=== PATIENT | male | born 1935 | race Caucasian/White ===

== ENCOUNTER 2017-04-15 17:43 | Inpatient (IN) | payer OTHER ==
[~2017-04-15] VITALS: Ht 182.9 cm; Wt 62.6 kg
[~2017-04-15 17:43] MED LIST: ACETAMINOPHEN-1 EAC1 PO; ALLOPURINOL 30300 M1 PO; AMOX TR-K CLV1 EAC4 PO; ASPIRIN EC81 M1 PO; AVALIDE 300-121 EACH PO; CARISOPRODOL 3350 M1 PO; CLEOCIN HCL150 MG PO; COUMADIN 3 MG TA3 M1 PO; DOCUSATE SODIU100 MG PO; FLORANEX TABLE1 EACH PO; HYDROCODON-ACE1 EAC1 PO; LIPITOR20 MG PO; NEURONTIN 300M300 M2 PO; NORCO 7.5-3251 EACH PO; STOOL SOFT-STI1 EACH PO; TOPROL XL50 MG PO
[2017-04-15 17:51] VITALS: BP 108/60
[2017-04-15] MEDS ORDERED: ELIQUIS2.5 MG PO (17:58)
[2017-04-15 18:35] LABS: INFLUENZA A ANTIGEN None Detected (None Detect)
[2017-04-15 18:39] LABS: HEMATOCRIT 42.9 % (42.0-52.0); HEMOGLOBIN 14.3 gm/dL (14.0-18.0); MCH 28.6 pg (26.0-34.0); MCHC 33.3 g/dL (28.0-37.0); MCV 85.7 fL (80.0-100.0); MPV 9.5 fl. (7.2-11.1); NUCLEATED RBCS 0 /100WBC; PLATELET COUNT* 292 thou/uL (150-400); RBC 5.01 mil/uL (4.50-6.00); RDW-CV 15.9 % (10.5-14.5)
[2017-04-15 18:42] LABS: WBC 42.4 thou/uL (4.0-11.0)
[2017-04-15 18:55] LABS: ALBUMIN 3.3 g/dL (3.4-5.0); ALKALINE PHOSPHATASE 124 U/L (46-116); ANION GAP 8 mmol/L (7-16); BUN 42 mg/dL (7-18); CALCIUM 8.9 mg/dL (8.5-10.1); CHLORIDE 100 mmol/L (98-107); CO2 28 mmol/L (21-32); CREATININE 1.9 mg/dL (0.6-1.3); GLUCOSE 140 mg/dL (70-99); NT-PRO BRAIN NAT PEPTIDE 1022 pg/mL (<300); POTASSIUM 3.7 mmol/L (3.5-5.1); SGOT 19 U/L (15-37); SGPT 25 U/L (30-65); SODIUM 136 mmol/L (136-145); TOTAL BILIRUBIN 1.1 mg/dL (<0.1-1.0); TOTAL PROTEIN 7.4 g/dL (6.4-8.2); TROPONIN-I LEVEL <0.06 ng/mL (<0.06)
[2017-04-15 19:06] LABS: ABSOLUTE LYMPHOCYTES 1.3 thou/uL (0.8-5.3); ABSOLUTE NEUTROPHILS 41.1 thou/uL (1.6-8.1); PLATELET ESTIMATE ADEQUATE
[2017-04-15 20:45] VITALS: BP 117/44
[2017-04-15 21:36] VITALS: BP 115/46
[2017-04-15] MEDS ORDERED: MELATONIN5 M1 PO (22:16)
[2017-04-16] VITALS: BP 110/50
[2017-04-16 04:00] VITALS: BP 110/44
[2017-04-16 08:00] VITALS: BP 113/56
[2017-04-16 11:55] LABS: ABSOLUTE LYMPHOCYTES 0.3 thou/uL (0.8-5.3); ABSOLUTE MONOCYTES 0.1 thou/uL (0.0-1.2); ABSOLUTE NEUTROPHILS 34.6 thou/uL (1.6-8.1); BASOPHILS 0.1 %; HEMATOCRIT 38.2 % (42.0-52.0); HEMOGLOBIN 12.5 gm/dL (14.0-18.0); MCH 28.4 pg (26.0-34.0); MCHC 32.8 g/dL (28.0-37.0); MCV 86.5 fL (80.0-100.0); MONOCYTES 0.2 %; MPV 9.5 fl. (7.2-11.1); NUCLEATED RBCS 0 /100WBC; PLATELET COUNT* 255 thou/uL (150-400); POLYS 98.7 %; RBC 4.42 mil/uL (4.50-6.00); RDW-CV 15.6 % (10.5-14.5)
[2017-04-16 12:00] VITALS: BP 116/72
[2017-04-16 12:04] LABS: ALBUMIN 2.4 g/dL (3.4-5.0); CALCIUM 8.1 mg/dL (8.5-10.1); CREATININE 1.6 mg/dL (0.6-1.3); POTASSIUM 3.7 mmol/L (3.5-5.1); TOTAL BILIRUBIN 0.4 mg/dL (<0.1-1.0)
--- NOTE | 2017-04-16 12:55 | EKG ---
[place] [address] ELECTROCARDIOGRAM REPORT Name: GERMAN NAIK Room: [address] ADM IN .R.#: [id number] Admission: 04/15/17 Attend Phys: Thuan Montaño Discharge: Date of : 35 Report #: [id number] THIS REPORT FOR: //name// [facility] ED Test Date: 2017-04-15 Test Time: 18:14:10 Pat Name: GERMAN NAIK Department: Room: [facility] Gender: Principal Mechanical Engineer: Miladis SOLER : 1935 Requested By: Mildred Zhong Order Number: [id number] MD: Jones Deng Measurements Intervals [place] Rate: 109 P: GA: QRS: 101 QRSD: 135 T: -19 QT: 355 QTc: 479 Interpretive Statements Atrial fibrillation 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
--- NOTE | 2017-04-16 13:02 | EKG ---
[place] [address] ELECTROCARDIOGRAM REPORT Name: GERMAN NAIK Room: [address] ADM IN M.R.#: [id number] Admission: 04/15/17 Attend Phys: Thuan Montaño Discharge: Date of : 35 Report #: [id number] THIS REPORT FOR: //name// [facility] Test Date: 2017-04-16 Test Time: 08:36:16 Pat Name: GERMAN NAIK Department: Room: [address] Gender: M Zinc Miner: : 1935 Requested By: Leo Pop Order Number: [id number] MD: Jones Deng Measurements Intervals [place] Rate: 63 P: 78 MS: 137 QRS: 95 QRSD: 147 T: 35 QT: 448 QTc: 459 Interpretive Statements Sinus rhythm RBBB and LPFB Electronically Signed On 04-16-2017 13:02:52 THIRD RIGGER by Jnoes Deng [email or web address] <ELECTRONICALLY SIGNED> By: Jones Deng MD, [facility] 04/16/17 1302 0836 0836 Jones Deng MD, FACC /EPI
[2017-04-16 16:00] VITALS: BP 110/43
[2017-04-16 20:00] VITALS: BP 135/51
[2017-04-17] VITALS: BP 119/55
[2017-04-17 04:00] VITALS: BP 121/57
[2017-04-17 05:38] LABS: BASOPHILS 0.1 %; HEMATOCRIT 35.9 % (42.0-52.0); HEMOGLOBIN 11.8 gm/dL (14.0-18.0); LYMPHOCYTES 0.9 %; MCH 28.4 pg (26.0-34.0); MCHC 32.8 g/dL (28.0-37.0); MCV 86.4 fL (80.0-100.0); MONOCYTES 0.1 %; MPV 9.7 fl. (7.2-11.1); NUCLEATED RBCS 0 /100WBC; PLATELET COUNT* 292 thou/uL (150-400); POLYS 98.9 %; RBC 4.16 mil/uL (4.50-6.00)
[2017-04-17 06:07] LABS: ABSOLUTE LYMPHOCYTES 0.4 thou/uL (0.8-5.3); ABSOLUTE NEUTROPHILS 49.2 thou/uL (1.6-8.1)
[2017-04-17 06:09] LABS: WBC 49.7 thou/uL (4.0-11.0)
[2017-04-17 07:14] LABS: ALBUMIN 2.4 g/dL (3.4-5.0); CALCIUM 7.8 mg/dL (8.5-10.1); CREATININE 1.4 mg/dL (0.6-1.3); POTASSIUM 3.6 mmol/L (3.5-5.1); TOTAL BILIRUBIN 0.3 mg/dL (<0.1-1.0); TOTAL PROTEIN 5.4 g/dL (6.4-8.2)
--- NOTE | 2017-04-17 07:36 | CON ---
[facility] [address] [place] [address] CONSULTATION Name: GERMAN NAIK Room: [address] [facility] IN M.R.#: [id number] Admission: 04/15/17 Attend Phys: Thuan Montaño Discharge: Date of : 35 Report #: [id number] THIS REPORT FOR: //name// CC: HUBERT Deng MD [facility] Roger Slaughter INDICATION: Atrial fibrillation. HISTORY OF PRESENT ILLNESS: The patient is an 82-year-old gentleman with history of coronary artery disease, peripheral vascular disease, coronary artery bypass grafting, paroxysmal atrial fibrillation and chronic anticoagulation. The patient was admitted with the flu. In this setting, he had paroxysm of atrial fibrillation. He is now in sinus rhythm. He has no symptoms with his atrial fibrillation. He is chronically anticoagulated. He is having no bleeding problems. With rest and fluids, he states that he is feeling better. At the time of my interview, he is without cardiac complaint. PAST MEDICAL HISTORY: 1. Coronary artery disease. 2. Peripheral vascular disease. 3. Hyperlipidemia. 4. Gout. 5. Hypertension. 6. Remote history of myocardial infarction. 7. Cardiac nuclear stress test 04/02/2015, EF 66%, nonischemic. Echo 04/02/2015, EF 55-60%. PAST SURGICAL HISTORY: 1. Abdominal aortic aneurysm repair in 2006. 2. Cardiac stenting 1996. 3. Three vessel coronary artery bypass graft in 2005. 4. Right carotid endarterectomy in 2004. 5. Benign kidney mass. 6. Inguinal hernia repair. 7. Bladder surgery. 8. Colon Fistula. 9. L3-L4 laminectomy. 10. Aortogram and atherectomy of the right SFA and popliteal. FAMILY HISTORY: Noncontributory. SOCIAL HISTORY: The patient smokes 2 packs of cigarettes daily. Drinks alcohol moderately. He is . His is with him. ALLERGIES: [place] [address] CONSULTATION Name: GERMAN NAIK Room: [address] IN [facility].#: [id number] Admission: 04/15/17 Attend Phys: Thuan Montaño Discharge: Date of : 35 Report #: [id number] CURRENT MEDICATIONS: Floranex 1 tablet daily, allopurinol 300 mg daily, Eliquis 2.5 mg b.i.d., aspirin 81 mg daily, Lipitor 20 mg daily, carisoprodol 350 mg q.6 hours, clindamycin 600 mg q.6 hours, Colace 100 mg daily, gabapentin 300 mg t.i.d., hydrocodone/acetaminophen 7.5/325 one tablet q.6 hours p.r.n., Avalide 300/12.5 daily, melatonin 10 mg at bedtime as needed, Toprol-XL 50 mg daily, stool softener daily. REVIEW OF SYSTEMS: A 14-point review of systems is positive for cough productive of clear to yellow sputum, history of previous DVT remotely. He wears glasses without acute visual change. He wears dentures. He has peripheral neuropathy. Otherwise, 14-point review of systems unremarkable. PHYSICAL EXAMINATION: VITAL SIGNS: Blood pressure 113/56, pulse 57 and regular. GENERAL: This is a pleasant gentleman who is in no distress. Mood and affect appropriate. HEENT: The patient is wearing glasses. Extraocular muscles intact. Mucous membranes are moist. NECK: Shows no jugular venous distention. There are no carotid bruits. CHEST: Reveals clear lung john. I do not appreciate wheezes, rales or rhonchi. CARDIOVASCULAR: Reveals a regular rhythm without gallop or murmur. ABDOMEN: Reveals normal bowel sounds. The abdomen is soft and nontender. EXTREMITIES: Shows no edema. Peripheral pulses diminished. LABORATORY DATA: A 12-lead EKG, presently shows a sinus rhythm with right bundle branch block. On admission showed atrial fibrillation with right bundle branch block. Troponin less than 0.06. IMPRESSION AND RECOMMENDATIONS: 1. Coronary artery disease, presently stable. He is not having any symptoms to suggest angina. Continue daily aspirin. 2. Paroxysmal atrial fibrillation. The patient mostly in sinus rhythm. He was adequately anticoagulated, no adjustments at this time. 3. Peripheral vascular disease, presently stable. He is having no resting pain or nonhealing ulcers. 4. Hyperlipidemia. He has been at goal on 20 mg of atorvastatin and continues outlined above. 5. Hypertension, adequately controlled on current medications. 6. Influenza [place] [address] CONSULTATION Name: GERMAN NAIK Room: [address] IN [facility]#: [id number] Admission: 04/15/17 Attend Phys: Thuan Montaño Discharge: Date of : 35 Report #: [id number] At this point in time, the patient appears stable from a cardiac standpoint. We will follow as needed. <ELECTRONICALLY SIGNED> By: Leo Pop MD, FACC 04/17/17 0736 1342 [facility]01[facility] Anna Pop MD, FACC /nt
--- NOTE | 2017-04-17 07:55 | CON ---
[address] [address] CONSULTATION Name: GERMAN NAIK Room: [address] IN M.R.#: [id number] Admission: 04/15/17 Attend Phys: Thuan Montaño Discharge: Date of : 35 Report #: [id number] THIS REPORT FOR: //name// CC: Alexander Slaughter DATE OF SERVICE: 04/16/2017 ATTENDING PHYSICIAN: Roger Slaughter DO. REASON FOR EVALUATION: Influenza with leukemoid reaction. HISTORY OF PRESENT ILLNESS: Chart reviewed, patient examined. This is an 82-year-old with fairly extensive medical history, a lot of related vasculopathy, who had fairly abrupt onset of illness dating back to 04/13/2017, associated cough. Denies significant fevers. Generalized myalgias and arthralgias, some decreased appetite, has not had gastrointestinal related complaints, is found to be positive for influenza antigen B. Chest x-ray did not show any acute processes; however, lactic acid was in normal range. CBC showed markedly elevated white count to 35,000. On questioning, denies any particular exposure history, although he has had significant fairly weight loss over the course of last couple of years, attributes that to decreased p.o. intake, early satiety it sounds like. He is empirically started on antimicrobials including levofloxacin and Tamiflu. ALLERGIES: AUGMENTIN. CURRENT MEDICATIONS: Include atorvastatin, methylprednisolone, levofloxacin, losartan, hydrochlorothiazide, aspirin, allopurinol, Lactobacillus, metoprolol, gabapentin, carisoprodol, apixaban, and Tamiflu. PAST MEDICAL HISTORY: He has known coronary artery disease with previous acute myocardial infarction, has stenting, aortocoronary bypass grafting, has history of abdominal aortic aneurysm repair, hypertension, reflux, gout. He has had a fem-pop bypass. SOCIAL HISTORY: Smokes 2 packs per day. FAMILY HISTORY: Noncontributory. REVIEW OF SYSTEMS: As above. PHYSICAL EXAMINATION: GENERAL: He is alert, cooperative, in ugov-sw-sxoxahpc distress, frequent cough. VITAL SIGNS: Temperature 98.1, pulse 75, respirations 18, [place] [address] CONSULTATION Name: NAIKGERMAN Miladis Room: [address]#: [id number] Admission: 04/15/17 Attend Phys: Thuan Montaño Discharge: Date of : 35 Report #: [id number] 116/72. SKIN: Warm, dry. HEENT: Unremarkable. NECK: Supple. LUNGS: Few scattered coarse breath sounds. HEART: Regular. No appreciated murmur. ABDOMEN: Soft. There is no apparent organomegaly. There are no overt peritoneal signs. GENITOURINARY AND RECTAL: Deferred. LABORATORY DATA: Chest x-ray showed no acute process on 2 occasions. Electrolytes: Sodium 139, potassium 3.9, chloride 105, bicarbonate is 29, anion gap of 5. BUN and creatinine 40 and 1.6. Glucose of 218. LFTs are unremarkable. Albumin of 2.4, total protein 6.0. Estimated GFR of 42. CBC: White count 35.0, H and H 12.5 and 38.2, platelets of 255. He has had an overwhelming neutrophilia of 34,600 lymphocytopenia. Blood cultures sterile thus far. Lactic acid 0.9. ASSESSMENT: Influenza B. He has been ill for about 72 hours. There is no evidence of focal pyogenic infection at this point. Certainly at risk including pneumonitis, not overtly toxic. There is a question he has got some chronic occult process going on. I think we will image his abdomen and pelvis. I will go ahead and check a sed rate. Differential is otherwise fairly unremarkable at this point. We will continue empiric antimicrobial therapy including the antibacterial for the moment. If he has diarrhea, consider Clostridium difficile related colitis. <ELECTRONICALLY SIGNED> By: Micah Colindres MD 04/17/17 0755 1450 0236Joaldair Colindres MD /nt
[2017-04-17 08:00] VITALS: BP 128/56
[2017-04-17 08:16] LABS: URINE BILIRUBIN NEGATIVE (Negative); URINE BLOOD NEGATIVE (Negative); URINE CLARITY CLEAR; URINE COLOR YELLOW; URINE GLUCOSE-RANDOM NEGATIVE (Negative); URINE KETONES NEGATIVE (Negative); URINE LEUKOCYTES-REFLEX NEGATIVE (Negative); URINE NITRITE-REFLEX NEGATIVE (Negative); URINE PROTEIN NEGATIVE (Negative); URINE UROBILINOGEN 0.2 E.U./dl (0.2-1.0)
[2017-04-17 12:09] VITALS: BP 131/53
[2017-04-17 13:16] LABS: INR 1.4; PROTIME 13.8 Seconds (9.20-11.50)
[2017-04-17] MEDS ORDERED: TESSALON PERLE100 MG PO (15:51)
[2017-04-17] MEDS ORDERED: TAMIFLU30 MG PO (15:51)
[2017-04-17] MEDS ORDERED: LEVAQUIN 750 M750 MG PO (16:03)
[2017-04-17] MEDS ORDERED: PREDNISONE 10 M10 MG PO (16:03)
[2017-04-17 16:17] VITALS: BP 131/53
[2017-04-17 16:23] VITALS: BP 135/57
--- NOTE | 2017-04-17 17:50 | S ---
[place] [address] SURGICAL PATH RPT PROCEDURE Name: GERMAN NAIK Miladis Room: [address] IN M.R.#: [id number] Admission: 04/15/17 Date of : 35 Discharge: 04/17/17 Report #: [id number] Path Case #: [id number] PATHOLOGY REPORT COLLECTION DATE: 04/17/2017 RECEIVED DATE: 04/17/2017 SUBMITTING PHYS: Dr. Yessenia Echeverria OTHER PHYS: Dr. Roger Frazier SPECIMEN(S) RECEIVED: A.Peripheral smear * * * * * * * * * * * * FINAL DIAGNOSIS: Peripheral blood smear: - Mild normocytic anemia and marked leukocytosis / neutrophilia with mild left shift (see comment). (CLW:elena; 04/17/2017) COMMENT: Overall, the peripheral blood has mild normocytic anemia and marked leukocytosis / neutrophilia with a mild left shift. The platelet count is within the normal reference range. The etiology of the findings is unclear based entirely on slide review. It may be a reactive condition. If persistent and/or unexplained, evaluation for BCR/ABL may provide additional information, if clinically indicated. Potential causes of normocytic anemia include anemia of chronic disease, treated and/or compensated vitamin and mineral deficiencies, blood loss, dilutional and primary bone marrow disorders. Correlation with clinical history and additional laboratory data is recommended. The case was discussed with Dr. Echeverria on 04/17/2017 at approximately 2:30 PM. (CLW:elena; 04/17/2017) PATHOLOGIST: Dora Garcia M.D. REPORT ELECTRONICALLY SIGNED BY: Dora Garcia M.D. DATE/TIME: 04/17/2017 17:49 * * * * * * * * * * * * MICROSCOPIC DESCRIPTION: CBC Data (04/17/2017): WBC 49,700 /uL, RBC 4.16, hemoglobin 11.8 g/dL, hematocrit 35.9%, MCV 86.4 fL, MCH 28.4 pg, MCHC 32.8 g/dL, RDW 16.0%. Platelet count 292,000 /uL. Automated white blood cell differential: segs 98.9%, lymphs 0.9%, monos 0.1%, and basos 0.1%. Peripheral Blood Smear: Cytomorphological examination of [place] [address] SURGICAL PATH RPT PROCEDURE Name: GERMAN NAIK Room: [address]#: [id number] Admission: 04/15/17 Date of : 35 Discharge: 04/17/17 Report #: [id number] Path Case #: [id number] blood smear confirms the provided data. Red blood cells show mild normocytic anemia with no significant anisopoikilocytosis. No schistocytes or microspherocytes are seen. White blood cells are markedly increased in number. They are predominantly segmented neutrophils with reactive changes. There is a mild left shift with rare myelocytes and metamyelocytes noted on scanning. No blasts or Stacy rods are seen. No significant dyspoietic changes are identified. Lymphocytes are predominantly small, round, and mature appearing with condensed chromatin and scant cytoplasm with admixed large granular lymphocytes. On scanning, no markedly atypical lymphoid cells are seen. Monocytes are mature. Platelets are adequate in number and mainly normal in morphology with rare larger platelets noted. (CLW:elena; 04/17/2017) CLINICAL HISTORY: An 82-year-old man with marked leukocytosis. Morphologic review of the peripheral blood smear is requested by the patient's physician. INITIAL CPT CODE(S): A; [place] Professional services performed by [email or web address] at [facility], [address] [place] [address]. Technical services performed by [email or web address] at [address] [place] [address], [address], [place] [address]. [email or web address] [address] [place] [address] PHONE: [phone] DIRECTOR: Oneil Alexander M.D. * * * END OF REPORT * * *
== END 2017-04-17 17:30 | disposition home or self-care (01) | DRG 871 ==
LOC: M.ERS 17:43 → M.2W 18:57 → M.TBA-ER 18:57 → M.2W 20:37
PROVIDERS: Internal Medicine Hematology & Oncology; Physician Assistant; ADMIT Internal Medicine
DX: A41.9 Sepsis, unspecified organism (principal); J10.08 Influenza due to other identified influenza virus with other specified pneumonia; J15.6 Pneumonia due to other Gram-negative bacteria; N17.9 Acute kidney failure, unspecified; J44.0 Chronic obstructive pulmonary disease with (acute) lower respiratory infection; I10 Essential (primary) hypertension; K21.9 Gastro-esophageal reflux disease without esophagitis; M10.9 Gout, unspecified; D72.823 Leukemoid reaction; F17.210 Nicotine dependence, cigarettes, uncomplicated; I25.10 Atherosclerotic heart disease of native coronary artery without angina pectoris; I73.9 Peripheral vascular disease, unspecified; E78.5 Hyperlipidemia, unspecified; I48.0 Paroxysmal atrial fibrillation; Z95.1 Presence of aortocoronary bypass graft; I25.2 Old myocardial infarction; Z95.5 Presence of coronary angioplasty implant and graft; Z79.899 Other long term (current) drug therapy; Z88.8 Allergy status to other drugs, medicaments and biological substances; Z82.49 Family history of ischemic heart disease and other diseases of the circulatory system; Z82.5 Family history of asthma and other chronic lower respiratory diseases

== ENCOUNTER 2017-05-15 19:02 | Emergency (ER) | payer OTHER ==
[~2017-05-15] VITALS: Ht 182.9 cm; Wt 68.0 kg
[~2017-05-15 19:02] MED LIST changes: +ELIQUIS2.5 MG PO; +LEVAQUIN 750 M750 MG PO; +MELATONIN5 M1 PO; +PREDNISONE 10 M10 MG PO; +TAMIFLU30 MG PO; +TESSALON PERLE100 MG PO
[2017-05-15 19:30] LABS: HEMATOCRIT 37.8 % (42.0-52.0); HEMOGLOBIN 12.6 gm/dL (14.0-18.0); MCH 28.5 pg (26.0-34.0); MCHC 33.3 g/dL (28.0-37.0); MCV 85.6 fL (80.0-100.0); MPV 7.4 fl. (7.2-11.1); NUCLEATED RBCS 0 /100WBC; PLATELET COUNT* 652 thou/uL (150-400); RBC 4.41 mil/uL (4.50-6.00); RDW-CV 15.7 % (10.5-14.5); WBC 26.1 thou/uL (4.0-11.0)
[2017-05-15 19:41] LABS: INR 1.3; PROTIME 12.4 Seconds (9.20-11.50)
[2017-05-15 19:42] LABS: ANION GAP 5 mmol/L (7-16); BUN 27 mg/dL (7-18); CALCIUM 9.1 mg/dL (8.5-10.1); CHLORIDE 100 mmol/L (98-107); CO2 34 mmol/L (21-32); CREATININE 1.5 mg/dL (0.6-1.3); GLUCOSE 247 mg/dL (70-99); POTASSIUM 4.3 mmol/L (3.5-5.1); SODIUM 139 mmol/L (136-145)
[2017-05-15 19:51] LABS: ABSOLUTE EOSINOPHILS 0.3 thou/uL (0.0-0.7); ABSOLUTE MONOCYTES 0.5 thou/uL (0.0-1.2); ABSOLUTE NEUTROPHILS 24.3 thou/uL (1.6-8.1)
[2017-05-15 19:52] LABS: PLATELET ESTIMATE INCREASED
[2017-05-15 19:53] LABS: ALBUMIN 2.9 g/dL (3.4-5.0); ALKALINE PHOSPHATASE 154 U/L (46-116); LIPASE 506 U/L (73-393); NT-PRO BRAIN NAT PEPTIDE 1613 pg/mL (<300); SGOT 26 U/L (15-37); SGPT 102 U/L (30-65); TOTAL BILIRUBIN 0.5 mg/dL (<0.1-1.0); TOTAL PROTEIN 6.3 g/dL (6.4-8.2); TROPONIN-I LEVEL <0.06 ng/mL (<0.06)
[2017-05-15] MEDS ORDERED: SORINE 80 MG TA80 M1 (20:52)
[2017-05-15 21:05] VITALS: BP 127/51
--- NOTE | 2017-05-16 12:38 | EKG ---
[place] [address] ELECTROCARDIOGRAM REPORT Name: GERMAN NAIK Room: [facility]#: [id number] Admission: 05/15/17 Attend Phys: Discharge: 05/15/17 Date of : 35 Report #: [id number] THIS REPORT FOR: //name// [facility] ED Test Date: 2017-05-15 Test Time: 20:59:31 Pat Name: GERMAN NAIK Department: Room: Gender: M Knotter: SHAISTA : 1935 Requested By: Mark Rivas Order Number: [id number] MD: Scott Davis Measurements Intervals [place] Rate: 60 P: 71 NV: 120 QRS: 88 QRSD: 144 T: 40 QT: 437 QTc: 437 Interpretive Statements Sinus rhythm Right bundle branch block Compared to ECG 04/16/2017 08:36:16 Left posterior fascicular block no longer present Electronically Signed On 05-16-2017 12:38:36 CDT by Scott Davis [email or web address] <ELECTRONICALLY SIGNED> By: Scott Davis MD, [facility] [id number] Scott Davis MD, [facility] /EPI
--- NOTE | 2017-05-16 12:38 | EKG ---
[place] [address] ELECTROCARDIOGRAM REPORT Name: HEENAGERMAN Red[place] Room: [facility]#: [id number] Admission: 05/15/17 Attend Phys: Discharge: 05/15/17 Date of : 35 Report #: [id number] THIS REPORT FOR: //name// [place] Test Date: 2017-05-15 Test Time: 19:08:10 Pat Name: GERMAN NAIK Department: Room: Gender: M Town Manager: SHAISTA : 1935 Requested By: Mark Rivas Order Number: [id number] MD: Scott Davis Measurements Intervals [place] Rate: 144 P: -11 HI: 58 QRS: 105 QRSD: 128 T: -31 QT: 365 QTc: 565 Interpretive Statements SVT Wide-QRS tachycardia RBBB and LPFB Compared to ECG 04/16/2017 08:36:16 Sinus rhythm no longer present Electronically Signed On 05-16-2017 12:38:06 CDT by Scott Davis [email or web address] <ELECTRONICALLY SIGNED> By: Scott Davis MD, [facility] 05/16/17 1238 07 07 Scott Davis MD, [facility] /EPI
== END 2017-05-15 21:05 | disposition left against medical advice (07) ==
LOC: M.ERS 19:02
PROVIDERS: Emergency Medicine Emergency Medical Services
DX: I48.91 Unspecified atrial fibrillation (principal); I10 Essential (primary) hypertension; K21.9 Gastro-esophageal reflux disease without esophagitis; M10.9 Gout, unspecified; F17.210 Nicotine dependence, cigarettes, uncomplicated

== ENCOUNTER → 2018-07-09 | Outpatient (CLI) | payer OTHER ==
[~2018-07-09] MED LIST changes: +CARDIZEM CD120 MG PO; +CLEOCIN HCL300 MG PO; +IRON325 PO; +MELATONIN1 MG PO; +MIRALAX17 GM PO; +NEURONTIN 300300 M1 PO; +OXYCODONE HCL 55 MG PO; +SORINE 80 MG TA80 M1; +UNICOMPLEX M TA1 TA1 PO
== END ==
LOC: M.RAD 13:05
DX: R06.02 Shortness of breath (principal); R05 Cough; D72.829 Elevated white blood cell count, unspecified; D64.89 Other specified anemias; D69.49 Other primary thrombocytopenia

== ENCOUNTER → 2018-07-13 | Outpatient (CLI) | payer OTHER ==
[~2018-07-13] VITALS: Ht 182.9 cm; Wt 51.7 kg
[~2018-07-13] MED LIST changes: +ALBUTEROL2.5 MG/31 INH; +ATIVAN0.5 MG PO; +CEFDINIR300 MG PO; +CENTRUM SILVER1 EAC2 PO; +CYMBALTA30 MG PO; +DIFLUCAN200 MG PO; +FLOMAX0.4 MG PO; +HYDREA 500 MG500 M1 PO; +KEFLEX500 M1 PO; +NICOTINE TRANSD21 M1 TRANSDERM; +NITROGLYCERIN0.4 MG SUBLING; +SENNA8.6 MG PO; +SORINE 80 MG TA80 M1 PO
[2018-07-13 11:09] VITALS: BP 124/50
[2018-07-13 11:12] LABS: HEMOGLOBIN 11.2 gm/dL (14.0-18.0); MCHC 31.9 g/dL (28.0-37.0)
[2018-07-13 11:16] LABS: MCV 81.6 fL (80.0-100.0); MPV 7.3 fl. (7.2-11.1); NUCLEATED RBCS 0 /100WBC; PLATELET COUNT* 620 thou/uL (150-400); RBC 4.29 mil/uL (4.50-6.00); RDW-CV 16.5 % (10.5-14.5); WBC 33.8 thou/uL (4.0-11.0)
[2018-07-13 11:26] LABS: APTT 31.3 Seconds (25.0-31.3); CALCIUM 10.2 mg/dL (8.5-10.1); CREATININE 1.5 mg/dL (0.6-1.3); INR 1.3; POTASSIUM 4.4 mmol/L (3.5-5.1); PROTIME 13.4 Seconds (9.20-11.50)
[2018-07-13 11:41] LABS: ABSOLUTE LYMPHOCYTES 0.3 thou/uL (0.8-5.3); ABSOLUTE NEUTROPHILS 33.5 thou/uL (1.6-8.1); METAMYELOCYTES 3 %; MYELOCYTES 2 %; PLATELET ESTIMATE INCREASED
[2018-07-13 12:50] VITALS: BP 99/37
--- NOTE | 2018-07-29 08:07 | PATH ---
[address] [address] PATHOLOGY RPT PROCEDURE Name: ISAIAS GUTIERREZ Room: [facility] M.R.#: [id number] Admission: 07/13/18 Date of : 35 Discharge: Report #: [id number] Path Case #: [id number] [facility] Accession Number: [id number] . 01 Material submitted: . PART A: bone - BONE MARROW BIOPSY PART B: bone - BONE MARROW CLOT PART C: bone - BONE MARROW ASPIRATE SLIDES PART D: bone - PERIPHERAL BLOOD SMEARS PART E: bone - BONE MARROW FLOW . 01 Clinician provided ICD-10: D 72.829 D 64.89 D 64.49 . 01 Clinical history: . Leukemia, elevated white blood cell count unspecified, other specified anemias, other primary thrombocytopenia . 02 Diagnosis: Peripheral smear: - Neutrophilic leukocytosis with mild neutrophilic left shift. - Normocytic normochromic anemia, mild. - Thrombocytosis, moderate. . Bone marrow, aspirate smears, clot section, and core biopsy: - MARKEDLY HYPERCELLULAR MARROW SHOWING DECREASED ERYTHROPOIESIS, GRANULOCYTIC HYPERPLASIA WITH MILD NEUTROPHILIC LEFT SHIFT, AND MEGAKARYOCYTIC HYPERPLASIA WITH MEGAKARYOCYTIC ATYPIA - FINDINGS ARE COMPATIBLE WITH A MYELOPROLIFERATIVE NEOPLASM. SEE DESCRIPTION AND COMMENT. - Nearly absent stainable iron. (JPM:elena; 07/21/2018) . . . . . Special studies report received from [facility] [employer], [address] [place] [address], [address], [place], [address], on case [id number], labeled with their number [id number], dated 07/16/2018. . Case Cancellation Report . Cancellation Reason: . Case [id number]: Molecular/PCR 4703: JAK2 Qualitative: [place] [address] PATHOLOGY RPT PROCEDURE Name: ISAIAS GUTIERREZ Room: [facility]#: [id number] Admission: 07/13/18 Date of : 35 Discharge: Report #: [id number] Path Case #: [id number] . . Concurrent Cases: Case [id number]: Flow Cytometry: Reported on 07-15-2018 1349: Comprehensive Panel . Case [id number]: Cytogenetics: Pending 5463: Cancer Cytogenetics - Bone Marrow . Case [id number]: Molecular/PCR: Pending 5263: CALRETICULIN . Case [id number]: Molecular/PCR: Pending 5460: MPL Mutation Detection by PCR Analysis . Case [id number]: Reflex: Pending 5338: Flow Diagnostic Reflex . . Disclaimer [facility] [employer] is a business unit of [employer] a wholly-owned subsidiary of [employer]. . A complete copy of the report is on file. . Professional services performed by [employer] at [address] [place] [address], [facility] [address], [place] [address]. Technical services performed by btt[employer]. at [address] [place] [address], [facility] [address], [place] [address]. . (AMJ 07/16/2018) . . . . . Special studies report received from [facility], [address] [place] [address], [facility] [address], [place], [address], on case [id number], labeled with their number [id number], dated 07/16/2018. . Calreticulin Mutation Detection by PCR Analysis . INTERPRETATION: Negative: no deletions or insertions were detected within the analyzed regions of the calreticulin (CALR) gene . Indication for Study: Leukocytosis, anemia [place] [address] PATHOLOGY RPT PROCEDURE Name: ISAIAS GUTIERREZ Room: [facility]#: [id number] Admission: 07/13/18 Date of : 35 Discharge: Report #: [id number] Path Case #: [id number] Specimen Type: Bone Marrow . Comments: A negative result does not entirely exclude the possibility of a clonal population carrying CALR gene mutations. Results should be interpreted in conjunction with clinical and laboratory findings for the most accurate interpretation. . The calcium-binding endoplasmic reticulin insulation cupola operator protein, calreticulin (CALR), is somatically mutated in approximately 70% of patients with JAK2-negative essential thrombocythemia (ET) and 60-88% of patients with JAK2-negative primary myelofibrosis. Only a minority of patients (approximately 8%) with myelodysplasia have mutations in CALR gene. CALR mutations are rarely detected in patients with de elizabeth acute myeloid leukemia, chronic myelogenous leukemia, lymphoid leukemia, or solid tumors. CALR mutations are not detected in polycythemia and appear to be mutually exclusive with JAK2 mutations and MPL mutations. . See Flow Cytometry report [id number] for further information. See Cytogenetic report [id number] for further information. See FISH report [id number] for further information. See Molecular report [id number] for further information. See Molecular report [id number] for further information. See report [id number] for further information. . Analytical Results: Assay Type Detection Parameters Result CALR Gene Mutation Exon 9 Deletion or Insertion Not Detected . at [employer]. Joao Batista, Ph.D., [place] DABMG, DABCC, DLMcm, M([facility])cm, MELI([facility])cm . Methodology: Genomic DNA was isolated from the provided specimen. Polymerase chain reaction (PCR) of exon 9 of the CALR gene was performed with specific fluorescent-labeled primers, and the PCR product was analyzed by capillary gel electrophoresis to determine the size of the PCR products. This PCR assay is capable of detecting a mutant cell population with a sensitivity of 5 mutant cells per 100 normal cells. . Intended Use: The detection of a CALR gene mutation aids in the specific diagnosis of a myeloproliferative neoplasm, and helps distinguish this clonal disease from a benign reactive process. The presence of a CALR gene mutation may predict a more indolent disease course with a lower thrombotic risk and longer overall survival (relative to those with a JAK2 mutation). . References: [address] [place] [address] PATHOLOGY RPT PROCEDURE Name: ISAIAS GUTIERREZ Room: [facility] Casandra.#: [id number] Admission: 07/13/18 Date of : 35 Discharge: Report #: [id number] Path Case #: [id number] Ronnie Ríos et al. (2013) Somatic mutations of calreticulin in myeloproliferative neoplasms. [place]. J. Med. 369:3294-6224 . . Anna Jeronimo et al. (2013) Somatic CALR mutations in myeloproliferative neoplasms with nonmutated JAK2. [place]. J. Med. (2013) 369:4024-1983 . Disclaimer This Test was performed by [employer] at [facility], [address], [address]. [facility] [employer] is a business unit of [employer] a wholly-owned subsidiary of [employer]. . . This test was developed and its performance characteristics determined by [employer] It has not been cleared or approved by the Food and Drug Administration. . A complete copy of the report is on file. . Professional services performed by [employer] at [facility] [facility] [address], [place] [address]. Technical services performed by b[employer]. at [facility] [facility] [address], [place] [address]. . (AM 07/20/2018) . . . . . Special studies report received from [employer], [address] [place] [address], [place], [address], on case [id number], labeled with their number [id number], dated 07/20/2018. . MPL Mutation Detection by PCR-Sequencing Analysis . INTERPRETATION: MPL mutation was not detected . Indication for Study: Leukocytosis, anemia and thrombocytopenia . Specimen Type: Bone Marrow . Comments: A negative result does not entirely exclude the possibility of a clonal population carrying MPL gene mutations. The presence of other non-S505N and W515L/K mutations may not be detected. [place] [address] PATHOLOGY RPT PROCEDURE Name: ISAIAS GUTIERREZ Room: [facility]#: [id number] Admission: 07/13/18 Date of : 35 Discharge: Report #: [id number] Path Case #: [id number] in conjunction with clinical and laboratory findings for the most accurate interpretation. . See Flow Cytometry report [id number] for further information. See Cytogenetic report [id number] for further information. See FISH report [id number] for further information. See Molecular report [id number] for further information. See report [id number] for further information. See report [id number] for further information. . Analytical Results: Assay Type Detection Parameters Result MPL Gene Mutation Exons 9 and 10 Negative . . at [employer] Joao Batista, Ph.D., [place] DABMG, DABCC, DLMcm, M(ASCP)cm, MB(ASCP)cm . Methodology: Genomic DNA was purified from the provided specimen. MPL gene region covering exons 9 and 10 was subjected to PCR amplification and bi-directional sequencing to identify sequence variations. This assay has a sensitivity to detect approximately 20% population of cells containing the MPL mutations in a background of non-mutant cells. . Intended Use: The detection of a MPL gene mutation aids in the specific diagnosis of a myeloproliferative neoplasm, and help distinguish this clonal disease from a benign reactive process. . References: Shane Telles and Kelechi YANEZ. (2008). JAK2 and MPL mutations in myeloproliferative neoplasms: discovery and science. Leukemia 22:7238-4837. . Roberto WASHINGTON et al. (2009). Evidence for a ceramic mold designer effect of the MPL-S505N mutation in eight [place] pedigrees with hereditary thrombocythemia. Haematologica 94(10):4412-0618. . Kylah FINLEY et al. (2006). VVN393 mutations in myeloproliferative and other myeloid disorders: a study of 1182 patients. Blood 108:7603-5865. . Disclaimer This Test was performed by [employer] at [address] [place] [address], [address]. [facility] is a business unit of [employer] a wholly-owned subsidiary of [employer] [address] PATHOLOGY RPT PROCEDURE Name: ISAIAS GUTIERREZ Room: [facility]#: [id number] Admission: 07/13/18 Date of : 35 Discharge: Report #: [id number] Path Case #: [id number] . . This test was developed and its performance characteristics determined by [employer] It has not been cleared or approved by the Food and Drug Administration. . A complete copy of the report is on file. . Professional services performed by [employer] at [address] [place] [address], [facility] [address], [place] [address]. Technical services performed by bttn. at [address] [place] [address], [facility] [address], [place] [address]. . (AM 07/21/2018) . . . . . Special studies report received from [facility], [address] [place] [address], on case [id number], labeled with their number [id number], dated 07/20/2018. . BCR-ABL1 Fusion Transcript Analysis by RT-PCR . INTERPRETATION: BCR-ABL1 transcripts are NOT Detected . Indication for Study: Leukocytosis, anemia and thrombocytopenia . Specimen Type: Bone Marrow . Comments: This assay can detect three different types of BCR-ABL1 fusion transcripts associated with CML, ALL, and AML: e13a2 (previously b2a2) and e14a2 (previously b3a2) (major breakpoint, p210), as well as e1a2 (minor breakpoint, p190). The e13a2 and e14a2 transcript values are titrated to the current International Scale (IS). The standardized baseline is 100% BCR-ABL1 (IS) and major molecular response (MMR) is equivalent to 0.1% BCR-ABL1 (IS) corresponding to a 3-log reduction. Results should be correlated with appropriate clinical and laboratory information as indicated. . See Flow Cytometry report [id number] for further information. See Cytogenetic report [id number] for further information. See FISH report [id number] for further information. See Molecular report [id number] for further information. See Molecular report [id number] for further information. See report [id number] for further [place] [address] PATHOLOGY RPT PROCEDURE Name: ISAIAS GUTIERREZ Room: [facility].#: [id number] Admission: 07/13/18 Date of : 35 Discharge: Report #: [id number] Path Case #: [id number] Analytical Results: Assay Type Detection Parameters Result Major Breakpoint p210 transcript b2a2 Not Detected Major Breakpoint p210 transcript b3a2 Not Detected Minor Breakpoint p190 transcript e1a2 Not Detected . Quantitative Testing History (Percentage) 07/13/2018 p190 transcript e1a2 <0.0032 p210 transcript b2a2 <0.0032 p210 transcript b3a2 <0.0032 . at [employer]. Joao Batista, Ph.D., [place] DABMG, DABCC, DLMcm, M([facility])cm, MELI([facility])cm . . Methodology: Total RNA is isolated from the sample and subject to a real-time, reverse transcriptase polymerase chain reaction (RT-PCR). The PCR primers and probes are specific for BCR-ABL1 e13a2, e14a2, and e1a2 fusion transcripts. The ABL1 transcript is amplified as the control for cDNA quantity and quality. Serial dilutions of a validated positive control RNA with known t(9;22) BCR-ABL1 are used as reference for quantification of BCR-ABL1 relative to ABL1. The numeric BCR-ABL1 level is reported as % BCR-ABL1/ABL1 and the detection sensitivity is 4.5 log below the standard baseline (0.0032%). . Intended Use: The BCR-ABL1 Quantitative RT-PCR assay detects three fusion transcripts commonly observed in patients with chronic myelogenous leukemia (CML) and in a subset of patients with acute lymphocytic leukemia (ALL). The results should be interpreted in the context of all clinical and laboratory findings. No therapeutic action should be taken solely based upon these results. . References: Yomaira August and Gopi S: Molecular Monitoring of Chronic Myeloid Leukemia. Seminars in Hematology 2003; 40 (2, Suppl 2): 62-68. . NCCN Clinical Practice Guidelines in Oncology, Chronic Myeloid Leukemia. V2.2017. . Natali HE, et al. Blood 2010; 116:v189-726. . Disclaimer This Test was performed by [employer] at [address] [place] [address], [facility] [place] [address] PATHOLOGY RPT PROCEDURE Name: ISAIAS GUTIERREZ [facility] [id number] Admission: 07/13/18 Date of : 35 Discharge: Report #: [id number] Path Case #: [id number] [facility] is a business unit of [employer] a wholly-owned subsidiary of [employer]. . . Any image(s) that accompany this report is/are a customer support representative image(s) only and should not be used to render a diagnosis. . This test was developed and its performance characteristics determined by [employer] It has not been cleared or approved by the Food and Drug Administration. . A complete copy of the report is on file. . Professional services performed by [employer] at [address] [place] [address], [address] [address]. Technical services performed by [employer]. at [address] [place] [address], [place] [id number]. . (AMJ 07/21/2018) . . . . . Special studies report received from [facility], [address] [place] [address], on case [id number], labeled with their number [id number], dated 07/22/2018. . Fluorescence in situ Hybridization (FISH) Report [employer] Analysis . RESULT: No assay specific abnormalities detected by MPN/CML FISH panel . Specimen Type: Bone Marrow . Indication for Study: Evaluate for MPN, CML. . INTERPRETATION: Fluorescence in situ hybridization (FISH) analysis was performed on this patient's specimen using DNA probes for MPN/CML panel. Two hundred interphase nuclei were examined for each probe and the signal patterns did not reveal any assay specific abnormalities. Based on the performance characteristics established on this assay, all test values were within the normal reference range. . Genetic changes other than those assayed here cannot be ruled out on the basis of this testing. Correlation with cytogenetic, clinical and pathological findings is suggested for a complete interpretation of the [address] [address] PATHOLOGY RPT PROCEDURE Name: ISAIAS GUTIERREZ [id number] Admission: 07/13/18 Date of : 35 Discharge: Report #: [id number] Path Case #: [id number] results. . See Flow Cytometry report [id number] for further information. See Cytogenetic report [id number] for further information. See Molecular report [id number] for further information. See report [id number] for further information. See report [id number] for further information. See Molecular report [id number] for further information. See report [id number] for further information. . The following [employer] FISH analysis was performed on this patient's specimen: . The following [employer] FISH analysis was performed on this patient's specimen: Probe Detection Result ISCN Parameters BCR/ABL1-ASS1 Detects a t(9;22) Not Detected nuc latisha(ABL1,ASS1,BCR) x2(200) . 13q14 Detects a deletion Not Detected nuc latisha(Q19N533,LAMP1)x2 of chromosome 13q (200) . CEP 9 Detects a trisomy 9 Not Detected nuc latisha(D9Z1x2)(200) . NINL/PTPRT Detects a deletion/ Not Detected nuc latisha(NINL,PTPRT)x2 (20p11/20q12) monosomy of (200) chromosome 20 . D8Z1/MYC Detects a trisomy 8 Not Detected nuc latisha(D8Z1,MYC)x2(200) (8cen/8q24) . at [employer]. Toy Mills, PhD, [facility] Senior Nursing Attendant, Clinical Cytogenetics . . Methodology: The patient specimen is processed onto a glass slide. Fluorescent DNA probe(s) is(are) applied to the cells on the slide under conditions of denaturation followed by hybridization. Stringency washes are applied and the slide is subsequently counterstained. A minimum of 100 interphase nuclei are analyzed unless otherwise indicated above. . Intended Use: This assay is considered qualitative and is not intended to be used as a measure of quantitative comparison. [place] [address] PATHOLOGY RPT PROCEDURE Name: ISAIAS GUTIERREZ Room: [facility] M.R.#: [id number] Admission: 07/13/18 Date of : 35 Discharge: Report #: [id number] Path Case #: [id number] This Test was performed by [employer] at [address] [place] [address], [address], [address]. [employer] is a business unit of [employer] a wholly-owned subsidiary of [employer]. . . Any image(s) that accompany this report is/are a customer support representative image(s) only and should not be used to render a diagnosis. . This test was developed and its performance characteristics determined by [employer] It has not been cleared or approved by the Food and Drug Administration. . A complete copy of the report is on file. . Professional services performed by [employer], [address] [place] [address], [place] [address], [place], [address]. Technical services performed by [employer], [address] [place] [address], [place] [address], [place], [address]. . (AMJ 07/23/2018) AZJ/07/23/2018 . 02 Comment: The peripheral smear shows a neutrophilic leukocytosis with mild neutrophilic left shift, mild normocytic normochromic anemia, and moderate thrombocytosis. The bone marrow is markedly hypercellular and shows decreased erythropoiesis, granulocytic hyperplasia with mild left shift of granulopoiesis, and megakaryocytic hyperplasia with megakaryocytic atypia. The findings are compatible with a myeloproliferative neoplasm. A panel of PCR analyses are performed on bone marrow. BCR/ABL1 transcripts are not detected. The MPL mutation is not detected. There are no deletions or insertions detected within the analyzed region of the calreticulin (CALR) gene. I was also informed by Dr. Pablo that JAK2 gene mutation studies were negative. So at this time, the findings are compatible with a myeloproliferative neoplasm, unclassifiable. Chronic myelogenous leukemia and polycythemia vera appear to have been excluded. The differential diagnosis at this time includes prefibrotic/early primary myelofibrosis, and essential thrombocythemia. I would favor a diagnosis of prefibrotic/early primary myelofibrosis given the megakaryocytic abnormalities and the presence of granulocytic hyperplasia. Correlate clinically. (JPM:elena; 07/21/2018) . . . Special stains performed: Reticulin stain on A1 and iron stain on C1. . [address] [place] [address] PATHOLOGY RPT PROCEDURE Name: ISAIAS GUTIERREZ [facility] [id number] Admission: 07/13/18 Date of : 35 Discharge: Report #: [id number] Path Case #: [id number] Addendum: . Special studies report received from [facility], [address] [place] [address], [facility] [address], [place], [address], on case [id number], labeled with their number [id number], dated 07/23/2018. . Cytogenetic Analysis Report . RESULT: Normal Male Karyotype 46,XY(20) . Specimen Type: Bone Marrow . Indication for Study: Leukemia . INTERPRETATION: Cytogenetic analysis revealed no evidence of an acquired clonal abnormality. These findings should be interpreted in the context of clinical and histopathologic findings. . See Flow Cytometry report [id number] for further information. See FISH report [id number] for further information. See Molecular report [id number] for further information. See report [id number] for further information. See report [id number] for further information. See Molecular report [id number] for further information. See report [id number] for further information. . Number of Metaphases Counted: 20 Banding: G-banding Number of Metaphase Cells Analyzed: 20 Band Level: 400 Number of Metaphase Cells Karyotyped: 2 Cultures Established: 24/48 hour unstimulated . . at [employer] Toy Mills, PhD, [facility] Senior Nursing Attendant, Clinical Cytogenetics . . Disclaimer This Test was performed by [employer]. at [address] [place] [address], [address], [place], [address]. [facility] [employer] is a business unit of [employer] a wholly-owned subsidiary of [employer]. . . Any image(s) that accompany this report is/are a customer support representative image(s) only and should not be used to render a [place]. [place] [address] PATHOLOGY RPT PROCEDURE Name: ISAIAS GUTIERREZ Room: [facility]#: [id number] Admission: 07/13/18 Date of : 35 Discharge: Report #: [id number] Path Case #: [id number] Based on the resolution of this study, standard cytogenetic methodology does not routinely detect subtle or sub-microscopic rearrangements or low level mosaicism. . A complete copy of the report is on file. . Professional services performed by [employer] at [address] [place] [address]. Technical services performed by [employer] at [address] [place], [place] [address]. . (AM 07/23/2018) . . . . . Special studies report received from [facility], [address] [place] [address], on case [id number], labeled with their number [id number], dated 07/23/2018. . JAK2 Exons 12-15 Mutation Detection by PCR-Sequencing Analysis . INTERPRETATION: JAK2 mutations are not detected . Indication for Study: Leukocytosis, anemia and thrombocytopenia . Specimen Type: Bone Marrow . . Comments: JAK2 V617F mutation is detected in patients with polycythemia vera (approximately 95%), essential thrombocythemia (approximately 50%) and primary myelofibrosis (approximately 50%). A small percentage of JAK2 mutation positive patients (approximately 3.3%) contain other non-V617F mutations within exons 12 to 15. . A negative result does not preclude mutations in other regions of the JAK2 gene, and does not exclude the presence of a myeloproliferative or other neoplasm. Result must be correlated with other clinical data for the most accurate diagnosis. . See Flow Cytometry report [id number] for further information. See Cytogenetic report [id number] for further information. See FISH report [id number] for further information. See Molecular report [id number] for further information. See Molecular report [id number] for further information. See Molecular report [id number] for further information. See report [id number] [place] [address] PATHOLOGY RPT PROCEDURE Name: ISAIAS GUTIERREZ [facility] [facility] [id number] Admission: 07/13/18 Date of : 35 Discharge: Report #: [id number] Path Case #: [id number] . . Analytical Results: . Assay Type Detection Parameters Result JAK2 Gene Mutation Exon 12 Not Detected JAK2 Gene Mutation Exon 13 Not Detected JAK2 Gene Mutation Exon 14 Not Detected JAK2 Gene Mutation Exon 15 Not Detected . . at [facility]. Joao Batista, Ph.D., [place] DABMG, DABCC, DLTana, M(ASCP)cm, MELI(ASCP)cm . . Methodology: Total RNA was purified from the provided specimen. The JAK2 gene region covering exons 12 to 15 was subjected to reverse-rehabilitation supervisor coupled PCR amplification, and bi-directional sequencing to identify sequence variations. This assay has a sensitivity to detect approximately 15% population of cells containing the JAK2 mutations in a background of non-mutant cells. . Intended Use: The detection of a JAK2 gene mutation aids in the specific diagnosis of a myeloproliferative neoplasm, and helps distinguish this clonal disease from a benign reactive process. . References: Lisa Perez., et al. (2009). Mutation profile of JAK2 transcripts in patients with chronic myeloproliferative neoplasias. J. Mol. Diagn. 11: 49-53. . Be Oneal., et al. (2015) Detection of mutations in JAK2 -80 by Allie sequencing. Int. J. Lab. Hematol. 38: 34-41. . Disclaimer This Test was performed by [facility] at [address] [place] [address], [facility]. [facility] is a business unit of [facility] a wholly-owned subsidiary of [employer]. . . This test was developed and its performance characteristics determined by [facility]. It has not been cleared or approved by the Food and Drug [place]. [place] [address] PATHOLOGY RPT PROCEDURE Name: ISAIAS GUTIERREZ [id number] Admission: 07/13/18 Date of : 35 Discharge: Report #: [id number] Path Case #: [id number] A complete copy of the report is on file. . Professional services performed by [facility]. at [address], [place] [address]. Technical services performed by [facility] at [address], [place] [address]. . (AMJ 07/23/2018) . . AZJ/07/26/2018 Addendum Electronically Signed by Abner Wilson MD, Pathologist . 02 Electronically signed: . Abner Wilson MD, Pathologist NPI- [id number] . 01 Gross description: . A. Received in formalin labeled "Gutierrez Isaias, core," is a single needle core of brewster bone measuring 1.3 cm in length and 0.4 cm in diameter. The specimen is submitted entirely in cassette A1, following decalcification. . B. Received in formalin labeled "Gutierrez Isaias, clot," is an aggregate of dark brewster blood clot measuring 0.3 x 0.1 x 0.1 cm. The specimen is filtered and entirely submitted in cassette B1. Due to the minute nature of the specimen, it may not survive processing. (TSD; 07/13/2018) TOB/TOB . 02 Microscopic: . Laboratory Data: The WBC count is 33.8 K/CMM, and the WBC differential reveals 92% segmented neutrophils, 2% bands, 1% lymphocytes, 3% metamyelocytes, and 2% myelocytes. The RBC count is 4.29 M/CMM, hemoglobin 11.2 G/DL, hematocrit 35.0%, MCV 81.6 FL, MCH 26.0 PG, MCHC 31.9 G/DL, and the RDW is 16.5%. The platelet count is 620 K/CMM. . Peripheral Smear: The peripheral smear is reviewed. There is a moderate neutrophilic leukocytosis with neutrophilic left shift. The WBC differential reveals a predominance of segmented neutrophils. There are several circulating myelocytes and metamyelocytes, and there is a rare blast. Lymphocytes are markedly decreased with only a rare lymphocyte noted. Red blood cells appear normochromic. Red blood cells show mild anisocytosis and range from normocytic to mildly microcytic. Red blood cells show only slight poikilocytosis with a few ovalocytes and teardrop red blood cells noted. Platelets are moderately increased with a few large and a rare giant [place] [address] PATHOLOGY RPT PROCEDURE Name: ISAIAS GUTIERREZ Room: [facility].#: [id number] Admission: 07/13/18 Date of : 35 Discharge: Report #: [id number] Path Case #: [id number] Aspirate Smears and Touch Imprints: Four Acosta's-stained and one iron-stained aspirate smears, and one Acosta's-stained biopsy Touch Imprint are examined. The smears contain multiple cellular marrow particles. There is a granulocytic and megakaryocytic hyperplasia. The M/E ratio is greater than 10:1. Erythropoiesis is decreased. Erythropoiesis appears normoblastic. There are no megaloblastic or overt dysplastic changes. There is a minor left shift of granulopoiesis. Granulopoiesis qualitatively appears normal. There is no increase of blasts. There is megakaryocytic hyperplasia with focal clustering of megakaryocytes noted. Megakaryocytes show anisocytosis, and range from small and large mononuclear forms up to large megakaryocytes having lobulated nuclei. There are atypical megakaryocytes showing abnormal nuclear/cytoplasmic ratios, hyperchromatic nuclei, and bulbous cloud-like nuclei. There is no apparent increase of eosinophils or basophils. There is no increase of lymphocytes or plasma cells. There are no cells foreign to the marrow. The iron-stained aspirate smear shows nearly absent stainable iron. The Wrights's-stained biopsy touch imprint appears similar to the aspirate smears. . Bone Marrow Biopsy and Clot Sections: Sections of the bone marrow biopsy reveal a markedly hypercellular marrow which is on the order of 90-95% cellular. The clot section is devoid of marrow particles. Erythropoiesis is decreased. There is a granulocytic hyperplasia. Maturing granulocytes are readily demonstrated. There is a minor left shift of granulopoiesis comprised of multiple layers of immature granulocytes focally around bony trabeculae. There is no apparent increase of blasts. There is megakaryocytic hyperplasia with focal clustering of megakaryocytes noted. Megakaryocytes show anisocytosis ranging from small and large mononuclear megakaryocytes up to large megakarocytes having lobulated nuclei. There are atypical megakaryocytes which show abnormal nuclear/cytoplasmic ratios, hyperchromatic nuclei, and bulbous cloud-like nuclei. There are no abnormal lymphoid aggregates, granulomas, or cells foreign to the marrow. A reticulin stain shows no significant increase or a focal mild increase of reticulin fibers with no significant reticulin fibrosis noted. . Special Studies: Bone marrow submitted for flow cytometry has a viability of 88%. Neutrophilic cells comprise 97% of total cells and show aberrant CD56 expression on approximately 47% of neutrophilic cells. Eosinophils comprise 1.9% total cells. Basophils comprise 0.1% of total cells. Myeloid blasts comprise 0.5% of total cells. Lymphocytes comprise 0.5% of total cells. T-cells show no significant abnormalities of markers tested. The CD4/CD8 ratio is 1.8. See flow cytometry report from [facility] ([id number]). . (JPM:johnathon/elena; 07/21/2018) . [place] [address] PATHOLOGY RPT PROCEDURE Name: ISAIAS GUTIERREZ [facility] [id number] Admission: 07/13/18 Date of : 35 Discharge: Report #: [id number] Path Case #: [id number] . Special studies report received from [facility], [address] [place] [address], [address], [place], [address], on case [id number], labeled with their number [id number], dated 07/15/2018. . Flow Cytometry: Hematologic Neoplasia Assessment . Clinical History Leukocytosis, anemia and thrombocytopenia . Indication for Study Evaluation for acute leukemia . Specimen Bone Marrow Aspirate . Viability 88% (7AAD exclusion) . Interpretation Bone Marrow Aspirate: - Relative myeloid hyperplasia with features of dysmaturation (see comment) - Blasts are not increased. . Comments These results are compatible with a myeloid neoplasm; particularity a chronic myeloproliferative neoplasm. Correlation with available clinical, laboratory, and morphologic data is recommended. FISH analysis (BCR/ABL), and JAK2 testing have been ordered and will be reported separately. . Populations Analyzed Myeloid Blasts: 0.5% CD5 on a minor subset, in absence of any other significant immunophenotypic abnormalities Lymphocytes: 0.5% B-cells: 0.0% T-cells: no significant abnormalities of the markers tested CD4+ T-cells: 0.3% (including 0.0% CD57+ cells) CD8+ T-cells: 0.2% (including 0.0% CD57+ cells) CD4:CD8: 1.8 NK cells: 0.0% Neutrophilic Cells: 97% Aberrant CD56 (approximately 47% of neutrophilic cells positive) Eosinophils: 1.9% No relative increase Basophils: 0.1% No relative increase Plasma Cells: 0.0% Not detected (plasma cells are typically underrepresented by flow cytometry; cytoplasmic light chains were not assessed) [place] [address] PATHOLOGY RPT PROCEDURE Name: ISAIAS GUTIERREZ Room: [facility]#: [id number] Admission: 07/13/18 Date of : 35 Discharge: Report #: [id number] Path Case #: [id number] . Morphologic Evaluation A slide was reviewed for quality assurance purposes only. . Specimen Description Total Cell Yield: 104.04 X 10 and 6 . Reagent(s) Used CD2, CD3, CD4, CD5, CD7, CD8, CD10, CD11b, CD13, CD14, CD16, CD19, CD20, CD33, CD34, CD38, CD45, CD56, CD57, CD64, CD117, HLA-DR, kappa, lambda . at [facility]. You Frye MD Pathologist . . . Intended Use Flow cytometry is optimally used to immunophenotypically characterize abnormal populations when they are detected. Negative flow cytometry results do not exclude lymphoma or neoplasia. Possible false negative flow cytometry results may occur in, but are not limited to, the following: neoplastic cells in Hodgkin lymphoma are not typically adequately represented by routine clinical flow cytometry; neoplastic cells may be lost or inadequately represented due to degeneration, sample processing, sampling artifact, or patchy involvement; plasma cells are typically underrepresented by flow cytometry; immature cells/blasts may be underrepresented due to hemodilution; myeloproliferative disorders and low grade myelodysplasia may not have immunophenotypic abnormalities or increased blasts. Correlation with all available clinical, laboratory, and morphologic data is always necessary to assess for the possibility of false negative flow cytometry results and to establish a diagnosis. Each marker in this analysis was used to assess for potential antigenic abnormalities or to evaluate detected abnormalities. . Disclaimer(s) This test was performed at [facility]. at [address], [place], [address] - Dental Assistant Medical Assistant: Wilton Sheikh MD. [facility] is a business unit of [employer] a wholly-owned subsidiary of [employer]. . Any image or images that accompany this report are customer support representative images only and should not be used to render a diagnosis. . This test was developed and its performance characteristics determined by [facility]. It has not been cleared [place] [address] PATHOLOGY RPT PROCEDURE Name: ISAIAS GUTIERREZ Room: [facility].#: [id number] Admission: 07/13/18 Date of : 35 Discharge: Report #: [id number] Path Case #: [id number] Drug Administration (FDA). The FDA has determined that such clearance or approval is not necessary. . For inquiries, the physician may contact Lab: [phone] . A complete copy of the report is on file. . Professional services performed by [facility] at [address], [place] [address]. Technical services performed by [facility] at [address], [place] [address]. . (AMJ 07/15/2018) . . 02 Pathologist provided ICD-10: D72.829, D64.9, D47.3, D47.1 . 02 CPT . 228633, 948875, 563059, 844189, 182161, 822958, 260420 Specimen Comment: A courtesy copy of this report has been sent to Specimen Comment: [phone], , . Specimen Comment: Report sent to ,DR RIVER / DR PABLO Performed at: 01 [facility] [address], [place] [address] MD Radu Weaver MD Phone: [phone] Performed at: 02 [facility] [address] [place], [place] [address] MD Abner Wilson MD Phone: [phone]
== END ==
LOC: M.INT 10:30
PROVIDERS: Radiology Diagnostic Radiology
DX: D72.828 Other elevated white blood cell count (principal); D64.89 Other specified anemias; D47.3 Essential (hemorrhagic) thrombocythemia

== ENCOUNTER 2018-07-16 16:51 | Inpatient (IN) | payer OTHER ==
[~2018-07-16] VITALS: Ht 182.9 cm; Wt 56.2 kg
[~2018-07-16 16:51] MED LIST changes: -ALBUTEROL2.5 MG/31 INH; -ATIVAN0.5 MG PO; -CEFDINIR300 MG PO; -CENTRUM SILVER1 EAC2 PO; -CYMBALTA30 MG PO; -DIFLUCAN200 MG PO; -FLOMAX0.4 MG PO; -HYDREA 500 MG500 M1 PO; -KEFLEX500 M1 PO; -NICOTINE TRANSD21 M1 TRANSDERM; -NITROGLYCERIN0.4 MG SUBLING; -SENNA8.6 MG PO; -SORINE 80 MG TA80 M1 PO
[2018-07-16 16:53] VITALS: BP 125/57
[2018-07-16 17:10] LABS: HEMATOCRIT 31.8 % (42.0-52.0); HEMOGLOBIN 10.2 gm/dL (14.0-18.0); MCH 25.8 pg (26.0-34.0); MCHC 31.9 g/dL (28.0-37.0); MCV 80.8 fL (80.0-100.0); MPV 7.1 fl. (7.2-11.1); NUCLEATED RBCS 0 /100WBC; PLATELET COUNT* 617 thou/uL (150-400); RBC 3.94 mil/uL (4.50-6.00); RDW-CV 15.8 % (10.5-14.5); WBC 32.6 thou/uL (4.0-11.0)
[2018-07-16] MEDS ORDERED: CENTRUM SILVER1 EAC2 PO (17:15)
[2018-07-16] MEDS ORDERED: MELATONIN1 MG PO (17:15)
[2018-07-16] MEDS ORDERED: IRON325 PO (17:15)
[2018-07-16] MEDS ORDERED: NITROGLYCERIN0.4 MG SUBLING (17:15)
[2018-07-16] MEDS ORDERED: MIRALAX17 GM PO (17:16)
[2018-07-16 17:18] LABS: APTT 33.2 Seconds (25.0-31.3); INR 1.4; PROTIME 14.8 Seconds (9.20-11.50)
[2018-07-16 17:25] LABS: CALCIUM 9.5 mg/dL (8.5-10.1); CREATININE 1.7 mg/dL (0.6-1.3); POTASSIUM 4.3 mmol/L (3.5-5.1)
[2018-07-16 17:28] LABS: ALBUMIN 2.3 g/dL (3.4-5.0); MAGNESIUM 2.3 mg/dL (1.8-2.4); TOTAL BILIRUBIN 0.6 mg/dL (<0.1-1.0); TOTAL PROTEIN 6.6 g/dL (6.4-8.2); TROPONIN-I LEVEL 0.11 ng/mL (<0.06)
[2018-07-16 17:42] LABS: ABSOLUTE MONOCYTES 0.7 thou/uL (0.0-1.2); PLATELET ESTIMATE ADEQUATE
[2018-07-16 18:30] VITALS: BP 116/45
[2018-07-16 22:40] VITALS: BP 130/56
[2018-07-17] VITALS: BP 101/56
[2018-07-17 04:00] VITALS: BP 118/41
--- NOTE | 2018-07-17 06:54 | H ---
[address] [address] HISTORY AND PHYSICAL Name: GERMAN NAIK Room: [address] IN M.R.#: [id number] Admission: 07/16/18 Attend Phys: Erica Scales Discharge: Date of : 35 Report #: [id number] THIS REPORT FOR: //name// CC: Alexander Abdalla DATE OF SERVICE: 07/16/2018 CHIEF COMPLAINT: "I don't feel sick, but my wanted me to come in." HISTORY OF PRESENT ILLNESS: The patient is an 83-year-old gentleman with extensive cardiac history, CAD, CABG, PAD, AAA stent and COPD, which he denies, who presented to us here for hypoxia. The patient thinks that he is not sick. He does not feel short of breath. He was not coughing, but per family he has had low-grade fever 99-100 at home, has been coughing and short of breath. His saturation was 84% when they went to the primary care physician last week. At that point, they did not do anything then and today time he went to the [facility] office for follow up as he had bone marrow done as part of his work up for leukocytosis. Prelim path report showed myelodysplastic syndrome. His O2 saturation was noted to have an O2 sat of 74%. He was then recommended to be admitted in the hospital. He was found to have COPD exacerbation and is being admitted now. Family also is concerned that he has significant weight loss, cannot really quantify it, but he has been going downhill for the last few weeks. The patient also has been weak, although he denies it. He is more short of breath. PAST MEDICAL HISTORY: Bladder fistula, bronchitis, CAD, chest pain, foot sprain, gout, hyperlipidemia, hypertension, myelodysplastic syndrome (new dx), leukocytosis, history of peripheral artery disease, paroxysmal atrial fibrillation, perirectal abscess, right wrist pain, and sepsis. PAST SURGICAL HISTORY: Bilateral carotid endarterectomy, history of back surgeries, history of endovascular stent graft to the abdominal aortic aneurysm, history of CABG, and BKA. FAMILY HISTORY: Father having heart problems and heart attack. CURRENT MEDICATIONS: Include apixaban 2.5 mg, allopurinol, atorvastatin, gabapentin, oxycodone, nitroglycerin, ferrous sulfate, multivitamins, melatonin, MiraLax and diltiazem. ALLERGIES: No known drug allergies. SOCIAL HISTORY: The patient lives with the . He continues to smoke since he was 13 years old and about 1-2 packs a day. Denies any [place] [address] HISTORY AND PHYSICAL Name: GERMAN NAIK Room: [address] IN .R.#: [id number] Admission: 07/16/18 Attend Phys: Erica Scales Discharge: Date of : 35 Report #: [id number] REVIEW OF SYSTEMS: The patient denies any fever or chills. Denies any cough or cold symptoms. No shortness of breath, but the family said that he has been having struggles with that and he also had some weight loss. He has been going downhill for the last few weeks. He also had an elevated white count that is being followed by Hematology. A 12-point review of system unremarkable as mentioned above. PHYSICAL EXAMINATION: VITAL SIGNS: Temperature is 37.3, heart rate of 99, respiratory rate of 17, blood pressure is 125/57, he is 94% on 2 liters nasal cannula. He was 86% on admission. GENERAL: The patient is alert. He is oriented x 3. He looks cachectic. He is in mild respiratory distress. He is on oxygen right now. HEENT: Normocephalic, atraumatic. Nares patent. Clear pharynx. NECK: Supple. No lymphadenopathy. CARDIOVASCULAR: Normal rate, regular rhythm. No murmurs. RESPIRATORY: He has crackles on exam and wheezing. GASTROINTESTINAL: Abdomen is soft, nontender, nondistended, good bowel sounds. No organomegaly. GENITOURINARY: Deferred. MUSCULOSKELETAL: He has BKA, right. LABORATORY STUDIES: Labs have been reviewed and white count of 32.6. His last one was 33.9 back 3 days ago. He is being followed by Hematology. Hemoglobin is 10.2, platelet is 607. INR is 1.4. Chemistry showed a sodium 137, potassium is 4.3, chloride is 100, carbon dioxide 31, BUN 38, creatinine is 1.7, glucose 114 and the rest of the labs are okay, except AST 62, ALT is 104 and alkaline phosphatase 209. Troponin is 0.11. Albumin is 2.8. Prealbumin is pending. IMAGING STUDIES: Chest x-ray showed a slight increase in the suprahilar upper lobes, concerning for pneumonia. IMPRESSION: 1. The patient is an 83-year-old gentleman admitted in the hospital for acute with suspected chronic hypoxic respiratory failure. 2. Likely secondary to chronic obstructive pulmonary disease. 3. Acute chronic obstructive pulmonary disease exacerbation. 4. Possible Gram-negative pneumonia. 5. Chronic shortness of breath, rule out congestive heart failure. 6. Tobaccoism. 7. Known coronary artery disease, status post stent in the past. 8. History of carotid endarterectomy. 9. Peripheral vascular disease, status post right below knee amputation. 10. History of an abdominal aortic aneurysm repair. 11. History of hypertension. 12. History of gastroesophageal reflux disease. [address] [address] HISTORY AND PHYSICAL Name: GERMAN NAIK Room: [address] IN ..#: [id number] Admission: 07/16/18 Attend Phys: Erica Scales Discharge: Date of : 35 Report #: [id number] 13. History of gout. 14. Possible dyspeptic syndrome. 15. Urinary retention. 16. Constipation. PLAN: The patient will be admitted. I expect this patient is going to be here more than 2 midnights. We will go ahead and continue antibiotics. In the ER, I have started antibiotics and has given him Levaquin. We will continue that. His white count is at baseline and is being followed by Hematology for that. We will put him on steroids, antibiotics, and neb treatment. We will also do echo. Patient will need a pulmonary function test outpatient. A CTA has been ordered and is currently pending. He does have some constipation so, we will put him on Colace and MiraLax. We will start him on Flomax as he has some issues with urinary retention and will do bladder scan now. Discussed with the patient regarding code status and he is a do not resuscitate. <ELECTRONICALLY SIGNED> By: Sofía Abdalla MD 07/17/18 0654 1819 [id number] Abdalla MD /nt
[2018-07-17 08:00] VITALS: BP 108/48
[2018-07-17 12:00] VITALS: BP 118/50
[2018-07-18] VITALS: BP 109/47
[2018-07-18 04:00] VITALS: BP 100/40
[2018-07-18 04:21] LABS: HEMATOCRIT 23.5 % (42.0-52.0); MCH 26.3 pg (26.0-34.0); MCHC 32.4 g/dL (28.0-37.0); MCV 81.2 fL (80.0-100.0); MPV 7.6 fl. (7.2-11.1); RBC 2.89 mil/uL (4.50-6.00); RDW-CV 16.1 % (10.5-14.5)
[2018-07-18 04:34] LABS: HEMOGLOBIN 7.6 gm/dL (14.0-18.0)
[2018-07-18 04:39] LABS: CALCIUM 8.8 mg/dL (8.5-10.1); CREATININE 1.6 mg/dL (0.6-1.3); MAGNESIUM 2.1 mg/dL (1.8-2.4); POTASSIUM 4.4 mmol/L (3.5-5.1)
[2018-07-18 11:58] VITALS: BP 110/65
--- NOTE | 2018-07-18 12:07 | CON ---
[address] [address] CONSULTATION Name: GERMAN NAIK Room: [address] ADM IN M.R.#: [id number] Admission: 07/16/18 Attend Phys: Erica Scales Discharge: Date of : 35 Report #: [id number] THIS REPORT FOR: //name// CC: Alexander Abdalla DATE OF SERVICE: 07/17/2018 DIAGNOSES: Chronic myeloproliferative neoplasm. SUBJECTIVE: The patient is an 83-year-old male who was evaluated in the clinic yesterday. He underwent a bone marrow biopsy, which the final results are not back yet; however, the prelim report was consistent with chronic myeloproliferative neoplasm. There was not enough evidence to support acute leukemia. Blasts were not increased. The patient at the clinic was found to have a saturation of 75%. He was advised to go to the hospital; however, he declined that. I recommended palliative care with and he was DNR; however, during the process in the clinic the oxygen will be done in 1 week. The patient finally agreed to present to the Emergency Room at [facility]. The patient's workup including CT scan of the chest showed no evidence of PE; however, there were mixed alveolar interstitial infiltrates in the upper lungs bilaterally compatible with a pneumonitis. The patient is feeling much better. He has been on antibiotics along with oxygen supplement. I discussed with his family who were at the bedside the current treatment. REVIEW OF SYSTEMS: All systems reviewed. It was negative except the above. PAST MEDICAL HISTORY: Coronary artery disease status post coronary artery bypass graft, peripheral vascular disease, AAA stent, COPD, newly diagnosed chronic myeloproliferative neoplasm, dyslipidemia, hypertension, AFib. PAST SURGICAL HISTORY: Bilateral carotid endarterectomy, back surgery, endovascular stent graft to the abdominal aortic aneurysm, CABG, below knee amputation. FAMILY HISTORY: Positive for coronary artery disease. MEDICATIONS: Per admission list. ALLERGIES: AMBIEN. SOCIAL HISTORY: He lives at home with his . He is an active smoker since the age of 13. He smokes around 1-2 packs a day. No alcohol or drug abuse. PHYSICAL EXAMINATION: VITAL SIGNS: Today, temperature 36.6, pulse 61, respirations 12, [place] [address] CONSULTATION Name: GERMAN NAIK Room: [address] IN [facility].#: [id number] Admission: 07/16/18 Attend Phys: Erica Scales Discharge: Date of : 35 Report #: [id number] is 108/48, SpO2 is 94 on 2 liters. GENERAL: The patient was lying in bed. He was not in acute distress. LUNGS: Positive for rales and rhonchi. Decreased breathing sounds. ABDOMEN: Soft, nontender, nondistended. Bowel sounds positive. EXTREMITIES: No edema, below knee amputation. LABORATORY DATA: Yesterday, WBC 32.6, hemoglobin 10.2, platelets 617. Sodium is 137, potassium 4.3, creatinine 1.7, bilirubin 0.6, AST 62, ALT is 104, alkaline phosphatase is 209. Chest CT scan and chest x-ray as mentioned above. ASSESSMENT AND PLAN: 1. An 83-year-old male who was diagnosed with chronic myeloproliferative neoplasm based on a bone marrow biopsy, no evidence of acute leukemia. Blasts are not increased. His BCR-ABL and JAK2 came back negative. The differential diagnosis will be including MPN (pre-fibrotic primary myelofibrosis versus ET); however, I am waiting on his final pathology report. 2. Pneumonia, treated with antibiotics at this point. If the patient is able to be discharged home, I will start him on Hydrea to control his counts. His hemoglobin and platelet count is intact. He is already on anticoagulation with apixaban. <ELECTRONICALLY SIGNED> By: Michael Felder MD 07/18/18 1207 1200 [id number] Felder MD /nt
--- NOTE | 2018-07-18 12:21 | CON ---
[address] [address] CONSULTATION Name: GERMAN NAIK Room: [address] IN M.R.#: [id number] Admission: 07/16/18 Attend Phys: Erica Scales Discharge: Date of : 35 Report #: [id number] THIS REPORT FOR: //name// CC: Alexander Abdalla INDICATION: Hypoxia. HISTORY OF PRESENT ILLNESS: The patient is an 83-year-old gentleman with extensive past medical history. He has a history of coronary artery disease with myocardial infarction and stenting in 1996. He ultimately underwent coronary artery bypass grafting in 2005. He denies any chest pain to suggest angina. He has a history of paroxysmal atrial fibrillation and has had multiple hospitalizations with AFib with RVR. Presently, he is in sinus rhythm. 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 It was suggested that he present to the hospital. Despite this, the patient denies any significant change in his breathing. He does have a history of chronic obstructive pulmonary disease. He continues to smoke 1-2 packs of cigarettes daily. Per the family, he has had a low grade temperature since the middle of the week with a cough productive of sputum. He denies hemoptysis. The family has noted some weight loss, which has not been quantified. Presently, he denies any chest pain, tightness or pressure. He says he has not had any problems with chest pain since his bypass surgery. Chest x-ray suggests pneumonia. The patient has a chronically elevated white blood cell count presumably due to myelodysplasia. PAST MEDICAL HISTORY: 1. Coronary artery disease. 2. Peripheral vascular disease with previous right below-knee amputation. 3. Paroxysmal atrial fibrillation. 4. Gout. 5. AAA repair in 06/2006. 6. Fem-pop in 05/2014. 7. Right lower leg amputation. 8.. Hernia repair. 9. CABG in 2005. 10. Carotid endarterectomy in 2004. 11. Nephrectomy for benign kidney mass. FAMILY HISTORY: The patient's father had coronary [place] [address] CONSULTATION Name: GERMAN NAIK Room: [address]#: [id number] Admission: 07/16/18 Attend Phys: Erica Scales Discharge: Date of : 35 Report #: [id number] SOCIAL HISTORY: The patient is . He smokes two packs of cigarettes daily, drinks a moderate amount of alcohol. ALLERGIES: None documented. HOME MEDICATIONS: Allopurinol 300 mg daily, Eliquis 2.5 mg b.i.d., atorvastatin 20 mg daily, diltiazem 120 mg daily, iron sulfate 325 mg daily, gabapentin 300 mg q.i.d., melatonin 1 mg at bedtime, Centrum Silver 1 tablet daily, Nitrostat p.r.n., oxycodone IR 10 mg q. 6 hours p.r.n. and MiraLax 17 grams b.i.d. p.r.n. REVIEW OF SYSTEMS: A 14-point review of systems is positive for cough productive of yellow sputum, COPD with wheezing, dyspnea, GERD. He wears glasses without acute visual changes and has dentures. Otherwise, 14-point review of systems was unremarkable. PHYSICAL EXAMINATION: VITAL SIGNS: Blood pressure 108/48 and pulse 61. Telemetry shows sinus rhythm with premature atrial contractions. GENERAL: This is a thin elderly gentleman who does not appear to be in distress. HEENT: Extraocular muscles intact. Mucous membranes are moist. NECK: Shows no jugular venous distention. CHEST: Reveals diminished breath sounds without wheezes or rales. CARDIAC: Reveals irregularly irregular heart rhythm without gallop or murmur. ABDOMEN: Reveals normal bowel sounds. The abdomen is soft and nontender. EXTREMITIES: Shows right BKA. Left lower extremity is without edema. LABORATORY DATA: A 12-lead EKG shows sinus rhythm with premature atrial contractions. There is a right bundle branch block and left anterior fascicular block noted. Labs are reviewed. Sodium 137, potassium 4.3, chloride 100, bicarbonate 31, BUN 38, creatinine 1.7, serum glucose 114, AST 62, lipase 121, total bilirubin 0.6, calcium 9.5, magnesium 2.3, alkaline phosphatase 209, ALT 104, total protein 6.6, albumin 2.3. EGFR 39. Lactic acid 1.7. Total CPK 47, troponin 0.09. NT-proBNP 2191. Protime 14.8, INR 1.4 and APTT 33.2. Fibrinogen 278. White blood cell count 32.6, hemoglobin 10.2 and platelet count 617,000. IMPRESSION AND RECOMMENDATIONS: 1. Coronary artery disease, presently stable. Troponin is minimally elevated, likely due to hypoxia consistent with type 2 myocardial infarction. I do not believe he has an acute coronary syndrome at this time. 2. History of paroxysmal atrial fibrillation. The patient had been on sotalol in the past. I would resume this at present. Can discontinue diltiazem at this time in favor of sotalol. The patient is anticoagulated with Eliquis. I would continue this at present. [facility] [address] [place] [address] CONSULTATION Name: GERMAN NAIK Room: [address] ADM IN M.R.#: [id number] Admission: 07/16/18 Attend Phys: Erica Scales Discharge: Date of : 35 Report #: [id number] 3. Peripheral vascular disease as outlined above. Presently stable. He is not having resting symptoms. 4. Chronic obstructive pulmonary disease exacerbation per Pulmonology. 5. Probable pneumonia. The patient is receiving IV antibiotics per primary care physician and Pulmonology. 6. Elevated proBNP consistent with possible acute heart failure. The patient does not appear appreciably volume overloaded. I would like to obtain echocardiogram to further evaluate. <ELECTRONICALLY SIGNED> By: Leo Pop MD, FACC 07/18/18 1221 1408 0148Leo Pop MD, FACC /nt
[2018-07-18 12:33] LABS: HEMATOCRIT 25.7 % (42.0-52.0); HEMOGLOBIN 8.4 gm/dL (14.0-18.0); MCH 26.5 pg (26.0-34.0); MCHC 32.9 g/dL (28.0-37.0); MCV 80.3 fL (80.0-100.0); MPV 7.5 fl. (7.2-11.1); RBC 3.19 mil/uL (4.50-6.00); RDW-CV 16.3 % (10.5-14.5); WBC 36.6 thou/uL (4.0-11.0)
--- NOTE | 2018-07-18 16:50 | 2DMMODE ---
[place] [address] 2 D/M-MODE ECHOCARDIOGRAM Name: GERMAN NAIK Room: [facility] IN [facility]#: [id number] Admission: 07/16/18 Attend Phys: Sofía Abdalla Discharge: Date of : 35 Date of Service: 07/18/18 1650 Report #: [id number] THIS REPORT FOR: //name// APPROVED REPORT Study performed: 07/18/2018 14:21:50 EXAM: Comprehensive 2D, Doppler, and color-flow Echocardiogram Patient Location: In-Patient Room #: [facility] Status: routine BSA: 1.74 HR: 54 bpm BP: 110/65 mmHg Rhythm: NSR Other Information Study Quality: Good Indications Dyspnea 2D Dimensions IVSd: 12.31 (7-11mm) LVOT Diam: 20.99 (18-24mm) LVDd: 53.25 mm PWd: 9.77 (7-11mm) Ascending Ao: 33.31 (22-36mm) LVDs: 37.88 (25-40mm) Aortic Root: 35.53 mm Volumes Left Atrial Volume (Systole) LA ESV Index: 52.70 mL/m2 Aortic Valve AoV Peak Ilia.: 0.95 m/s AO Peak Gr.: 3.65 mmHg LVOT Max P.59 mmHg AO Mean Gr.: 2.09 mmHg LVOT Mean P.16 mmHg LVOT Max V: 1.07 m/s AO V2 VTI: 25.30 cm LVOT Mean V: 0.67 m/s KERI (VTI): 3.47 cm2 LVOT V1 VTI: 25.40 cm Mitral Valve E/A Ratio: 1.23 MV Decel. Time: 336.21 ms MV E Max Ilia.: 0.90 m/[place] [address] 2 D/M-MODE ECHOCARDIOGRAM Name: GERMAN NAIK Room: [address] IN .R.#: [id number] Admission: 07/16/18 Attend Phys: Sofía Abdalla Discharge: Date of : 35 Date of Service: 07/18/18 1650 Report #: [id number] MV PHT: 97.50 ms MVA (PHT): 2.26 cm2 TDI E/Lateral E': 6.43 E/Medial E': 9.00 Medial E' Ilia.: 0.10 m/s Lateral E' Ilia.: 0.14 m/s Pulmonary Valve PV Peak Ilia.: 0.79 m/s PV Peak Gr.: 2.52 mmHg Tricuspid Valve RAP Estimate: 5.00 mmHg TR Peak Gr.: 36.45 mmHg RVSP: 41.00 mmHg PA Pressure: 41.00 mmHg Left Ventricle The left ventricle is normal size. There is akinesis of the basal segment of the inferior wall. There is normal left ventricular wall thickness. Left ventricular systolic function is preserved. LVEF is 55-60%. The left ventricular diastolic function is normal. Right Ventricle Right ventricle is dilated. The right ventricular systolic function is normal. Atria Left atrium is severely dilated. Right atrium is moderately dilated. Aortic Valve Mild aortic valve sclerosis. No aortic regurgitation is present. There is no aortic valvular stenosis. Mitral Valve There is mitral annular calcification. Trace mitral regurgitation. Mild mitral stenosis. Tricuspid Valve The tricuspid valve is normal in structure. Trace tricuspid regurgitation. The RVSP is 40-45 mmHg. Pulmonic Valve The pulmonary valve is normal in structure. Trace [place]mon[place] [address] 2 D/M-MODE ECHOCARDIOGRAM Name: GERMAN NAIK Room: [address] IN [facility]#: [id number] Admission: 07/16/18 Attend Phys: Sofía Abdalla Discharge: Date of : 35 Date of Service: 07/18/18 1650 Report #: [id number] Great Vessels The aortic root is normal in size. IVC is normal in size and collapses >50% with inspiration. Pericardium There is no pericardial effusion. <Conclusion> The left ventricle is normal size. There is normal left ventricular wall thickness. Left ventricular systolic function is preserved. LVEF is 55-60%. The left ventricular diastolic function is normal. There is akinesis of the basal segment of the inferior wall. Right ventricle is dilated. Left atrium is severely dilated. Right atrium is moderately dilated. Mild aortic valve sclerosis. There is mitral annular calcification. Mild mitral stenosis. Trace tricuspid regurgitation. The RVSP is 40-45 mmHg. IVC is normal in size and collapses >50% with inspiration. <ELECTRONICALLY SIGNED> By: Leo Pop MD, FACC 07/18/181649 49 49 Leo Pop MD, FACC /INF
[2018-07-18 17:14] VITALS: BP 115/68
[2018-07-19] VITALS: BP 103/44
[2018-07-19 04:00] VITALS: BP 109/45
[2018-07-19 10:11] LABS: HEMOGLOBIN 8.8 gm/dL (14.0-18.0); MCH 26.5 pg (26.0-34.0)
[2018-07-19 10:13] LABS: HEMATOCRIT 26.8 % (42.0-52.0); MCHC 32.9 g/dL (28.0-37.0); MCV 80.6 fL (80.0-100.0); MPV 7.5 fl. (7.2-11.1); NUCLEATED RBCS 0 /100WBC; PLATELET COUNT* 451 thou/uL (150-400); RBC 3.32 mil/uL (4.50-6.00); RDW-CV 16.1 % (10.5-14.5); WBC 30.5 thou/uL (4.0-11.0)
[2018-07-19 10:15] LABS: CALCIUM 8.8 mg/dL (8.5-10.1); CREATININE 1.4 mg/dL (0.6-1.3); POTASSIUM 4.5 mmol/L (3.5-5.1)
[2018-07-19 10:41] LABS: ABSOLUTE MONOCYTES 0.3 thou/uL (0.0-1.2); ABSOLUTE NEUTROPHILS 30.2 thou/uL (1.6-8.1); PLATELET ESTIMATE ADEQUATE
--- NOTE | 2018-07-19 10:49 | CON ---
[address] [address] CONSULTATION Name: GERMAN NAIK Room: [address] IN M.R.#: [id number] Admission: 07/16/18 Attend Phys: Erica Scales Discharge: Date of : 35 Report #: [id number] THIS REPORT FOR: //name// CC: Alexander Abdalla DATE OF SERVICE: 07/17/2018 NEW PATIENT EVALUATION REASON FOR EVALUATION: Hypoxemia. Pneumonia. HISTORY OF PRESENT ILLNESS: He is a pleasant 83-year-old gentleman with coronary artery disease; CABG; peripheral artery disease; COPD, not on inhalers, presented with hypoxia. The patient with further questioning states he has chronic cough productive of white thick mucus, but he said he has chronic cough and he thinks it is associated with smoking. His temperature at home was 100. On admission, oxygen saturation was 84%. He was recently diagnosed with myelodysplastic syndrome based on bone marrow biopsy. The lowest oxygen saturation on admission was 74%. He is currently on oxygen, not in distress, speaking in full sentences. Since admission, he had a chest x-ray as well as a CT chest. I reviewed his CT chest and it shows no evidence of pulmonary embolism. There is mixed alveolar and patchy infiltrate in the upper lungs. He has emphysematous changes. PAST MEDICAL HISTORY: Include coronary artery disease, hyperlipidemia, hypertension, myelodysplastic syndrome, chronic leukocytosis, AFib, perirectal abscess. PAST SURGICAL HISTORY: Carotid endarterectomy, back surgery, history of endovascular stent graft, CABG. FAMILY HISTORY: Significant for coronary artery disease. CURRENT MEDICATIONS: Reviewed. ALLERGIES: None. SOCIAL HISTORY: Continues to smoke since he was 13 years old. He smokes up to 2 packs per day. Denies alcohol use. REVIEW OF SYSTEMS: A 14-point review of systems is as above. Denies fever or chills. Has chronic cough. Has shortness of breath on exertion. PHYSICAL EXAMINATION: [place] [address] CONSULTATION Name: GERMAN NAIK Room: [address] IN [facility].#: [id number] Admission: 07/16/18 Attend Phys: Erica Scales Discharge: Date of : 35 Report #: [id number] GENERAL: The patient is not in distress, speaking in full sentences, pleasant. VITAL SIGNS: His T-max was 37.3, blood pressure 103/48, pulse is 61, O2 saturation on 2 liters was adequate at 94%. HEAD AND NECK: Neck is supple. Oral mucosa clear. CHEST: He has bibasilar inspiratory crackles. CARDIOVASCULAR: Regular rhythm. ABDOMEN: Soft, nontender. EXTREMITIES: No edema. Pulses were equal. LABORATORY AND OTHER DATABASE: Chest CT as above. White blood cell count is 32,000; however, has chronic leukocytosis, hemoglobin 10.2. ASSESSMENT AND PLAN: 1. Acute hypoxemic respiratory failure. The patient has emphysema on his CT. He is a heavy smoker. Also, has patchy infiltrate consistent with pneumonia. Differential diagnoses include pneumonitis related to aspiration. The other differential diagnoses include opportunistic infection, which is less likely as the patient continued to improve, especially that he has myelodysplastic syndrome. Recommend to monitor. 2. Chronic obstructive pulmonary disease, new diagnosis. Likely will need home oxygen. He will need bronchodilator treatment. 3. Myelodysplastic syndrome with associated leukocytosis. PLAN: Agree with antibiotic treatment, currently on Levaquin. He is currently on steroids, which will be decreased to daily. We will need followup chest CT in 2 months to confirm resolution. We will need bronchodilator treatment as outpatient. We will need pulmonary function tests as outpatient too. Consider doing a swallow evaluation, although the patient does not have dysphagia. With the location of pneumonitis in the more dependent portion, may need to evaluate for aspiration. Pulmonary will continue to follow up over the weekend. Will follow up intermittently. <ELECTRONICALLY SIGNED> By: Elizabeth Bo MD 07/19/18 1049 1308 0025Asem Estephania Bo MD /nt
[2018-07-19 11:52] VITALS: BP 119/52
[2018-07-19 16:51] VITALS: BP 114/42
[2018-07-19 20:00] VITALS: BP 124/41
[2018-07-20] VITALS: BP 117/52
[2018-07-20 04:00] VITALS: BP 132/52
[2018-07-20 05:12] LABS: HEMATOCRIT 26.1 % (42.0-52.0); HEMOGLOBIN 8.7 gm/dL (14.0-18.0); MCH 26.6 pg (26.0-34.0); MCHC 33.3 g/dL (28.0-37.0); MCV 80.1 fL (80.0-100.0); MPV 7.6 fl. (7.2-11.1); RBC 3.26 mil/uL (4.50-6.00); RDW-CV 15.9 % (10.5-14.5); WBC 31.7 thou/uL (4.0-11.0)
[2018-07-20 05:28] LABS: CALCIUM 8.5 mg/dL (8.5-10.1); CREATININE 1.5 mg/dL (0.6-1.3); MAGNESIUM 2.3 mg/dL (1.8-2.4); POTASSIUM 4.6 mmol/L (3.5-5.1)
[2018-07-20 08:09] VITALS: BP 120/48
--- NOTE | 2018-07-20 10:32 | EKG ---
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: [facility] : 1935 Requested By: Leo Pop Order Number: [id number] Reading MD: Scott Davis Measurements Intervals [place] Rate: 52 P: 60 KS: 129 QRS: -61 QRSD: 131 T: -13 QT: 454 QTc: 423 Interpretive Statements Sinus rhythm Atrial premature complexes RBBB and LAFB Compared to ECG 05/15/2017 20:59:31 Atrial premature complex(es) now present Left anterior fascicular block now present Electronically Signed On 07-20-2018 10:32:48 CDT by Scott Davis [email or web address] <ELECTRONICALLY SIGNED> By: Scott Davis MD, [facility] 07/20/18 1032 1217 1217 Scott Davis MD, [facility] /EPI
--- NOTE | 2018-07-20 12:47 | EKG ---
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 : 1935 Requested By: Blaise Jimenez Order Number: [id number] MD: Jones Deng Measurements Intervals [place] Rate: 76 P: 63 MS: 128 QRS: -53 QRSD: 141 T: 58 QT: 381 QTc: 429 Interpretive Statements Sinus rhythm Atrial premature complexes in couplets RBBB and LAFB Compared to ECG 05/15/2017 20:59:31 Atrial premature complex(es) now present Left anterior fascicular block now present Electronically Signed On 07-20-2018 12:47:26 CDT by Jones Deng [email or web address] <ELECTRONICALLY SIGNED> By: Jones Deng MD, FAC 07/20/18 1247 1701 1701 Jnoes Deng MD, FAC /EPI
[2018-07-20 13:29] VITALS: BP 122/51
--- NOTE | 2018-07-20 14:28 | EKG ---
[place] [address] ELECTROCARDIOGRAM REPORT Name: GERMAN NAIK Room: [address] ADM IN M.R.#: [id number] Admission: 07/16/18 Attend Phys: Erica Scales Discharge: Date of : 35 Report #: [id number] THIS REPORT FOR: //name// [facility] Test Date: 2018-07-19 Test Time: 12:18:39 Pat Name: GERMAN NAIK Department: Room: [address] Gender: M Laboratory Miller: CCD : 1935 Requested By: Blaise Jimenez Order Number: [id number] Reading MD: Scott Davis Measurements Intervals [place] Rate: 52 P: 56 DC: 129 QRS: -55 QRSD: 140 T: -9 QT: 487 QTc: 453 Interpretive Statements Sinus rhythm Atrial premature complex RBBB and LAFB Compared to ECG 07/19/2018 12:17:58 No significant changes Electronically Signed On 07-20-2018 14:27:48 CDT by Scott Davis [email or web address] <ELECTRONICALLY SIGNED> By: Scott Davis MD, FACC 07/20/18 1427 1218 1218 Scott Davis MD, [facility] /EPI
[2018-07-20 16:30] VITALS: BP 118/52
[2018-07-20 20:00] VITALS: BP 124/55
[2018-07-21] VITALS: BP 122/47
[2018-07-21 04:06] VITALS: BP 115/51
[2018-07-21 07:46] VITALS: BP 106/42
[2018-07-21 12:00] VITALS: BP 117/45
[2018-07-21 16:00] VITALS: BP 107/65
[2018-07-21 20:00] VITALS: BP 121/42
[2018-07-22] VITALS: BP 132/82
[2018-07-22 04:00] VITALS: BP 128/57
[2018-07-22 05:32] LABS: ABSOLUTE BASOPHILS 0.1 thou/uL (0.0-0.2); ABSOLUTE LYMPHOCYTES 0.3 thou/uL (0.8-5.3); ABSOLUTE MONOCYTES 0.1 thou/uL (0.0-1.2); BASOPHILS 0.3 %; HEMATOCRIT 26.5 % (42.0-52.0); HEMOGLOBIN 8.6 gm/dL (14.0-18.0); LYMPHOCYTES 0.9 %; MCH 25.8 pg (26.0-34.0); MCHC 32.3 g/dL (28.0-37.0); MONOCYTES 0.2 %; MPV 7.8 fl. (7.2-11.1); NUCLEATED RBCS 0 /100WBC; PLATELET COUNT* 416 thou/uL (150-400); POLYS 98.6 %; RBC 3.31 mil/uL (4.50-6.00); RDW-CV 16.4 % (10.5-14.5); WBC 37.6 thou/uL (4.0-11.0)
[2018-07-22 05:56] LABS: ALBUMIN 1.7 g/dL (3.4-5.0); CALCIUM 8.2 mg/dL (8.5-10.1); CREATININE 1.1 mg/dL (0.6-1.3); MAGNESIUM 2.1 mg/dL (1.8-2.4); POTASSIUM 4.3 mmol/L (3.5-5.1); TOTAL BILIRUBIN 0.3 mg/dL (<0.1-1.0); TOTAL PROTEIN 4.9 g/dL (6.4-8.2)
[2018-07-22 08:15] VITALS: BP 129/87
[2018-07-22 11:58] VITALS: BP 117/41
--- NOTE | 2018-07-22 14:08 | CON ---
[address] [address] CONSULTATION Name: GERMAN NAIK Room: [address] IN M.R.#: [id number] Admission: 07/16/18 Attend Phys: Erica Scales Discharge: Date of : 35 Report #: [id number] THIS REPORT FOR: //name// CC: Alexander Abdalla DATE OF SERVICE: 07/21/2018 ATTENDING PHYSICIAN: Dr. Abdalla. REASON FOR EVALUATION: Pneumonitis complicated by respiratory failure and worsening chest x-ray findings. HISTORY OF PRESENT ILLNESS: Chart reviewed, the patient examined. This is an 83-year-old with history of COPD, has known vasculopathy as well with coronary artery disease, was admitted through the Emergency Room with complaints of progressive dyspnea on 07/16/2018. Evaluation suggested infiltrates, hypoxemia, likely pneumonitis. He has been started on empiric therapy with levofloxacin briefly and linezolid, piperacillin/tazobactam. He has been quite tenuous, requiring now 4 liters per nasal cannula, has been as high as 6 in recent days. He does have a cough that is mildly productive. He has not been febrile. Appetite has been poor. It is notable for a significant weight loss over recent weeks to months. He is at least mildly encephalopathic. ALLERGIES: ZOLPIDEM. MEDICATIONS: Include levofloxacin, nystatin topically to his mouth, gabapentin, hydrocodone, cefepime, nicotine, ipratropium/albuterol inhaler, sotalol, methylprednisolone, ferrous sulfate, atorvastatin, allopurinol, apixaban, tamsulosin, nitroglycerin. PAST MEDICAL HISTORY: As above COPD, has coronary artery disease with previous stenting, has an abdominal aortic aneurysm, has hypertension, reflux, gout, peripheral vascular disease with previous fem-pop bypass, right lower extremity below-knee amputation. SOCIAL HISTORY: A [id number] history of smoking. No illicit drug use. No ethanol. FAMILY HISTORY: Noncontributory. REVIEW OF SYSTEMS: Otherwise, unremarkable 10-point review of systems except noted in the history of present illness. PHYSICAL EXAMINATION: GENERAL: He appears chronically ill, undernourished, [place] [id number] CONSULTATION Name: HEENAGERMAN MITESH Room: [address]#: [id number] Admission: 07/16/18 Attend Phys: Erica Scales Discharge: Date of : 35 Report #: [id number] encephalopathic, in moderate respiratory distress. He has nasal cannula oxygen in place at 4 liters. VITAL SIGNS: Temperature 96.9, pulse 94, respirations 19, blood pressure 117/45. SKIN: Warm, dry. HEENT: Normocephalic. Extraocular muscles intact. NECK: Supple. LUNGS: Diminished. He has got some scattered coarse breath sounds. HEART: Distant, irregular. ABDOMEN: Soft, nontender. EXTREMITIES: Lower extremities, no edema. GENITOURINARY: Deferred. RECTAL: Deferred. LABORATORY DATA: Swallow study is otherwise unremarkable. Chest x-ray: Increasing area of pneumonia in the mid lung, right lower lobe and lingula, left upper lung. Sodium 140, potassium 4.6, chloride 105, bicarbonate is 31, anion gap of 4, BUN and creatinine 33 and 1.5, estimated GFR 45. CBC: White count of 30.5, H and H 8.8 and 26.8, platelets 451, marked neutrophilia of 30,000 with a profound lymphocytopenia. Echo, EF of 55-60%, akinesis of a portion of the inferior wall. Left atrium is severely dilated, right atrium moderately dilated, mild mitral stenosis, mild aortic valve sclerosis. Blood cultures are sterile thus far from admission. ASSESSMENT: Pneumonitis, multi-lobed, complicated by respiratory failure. He is apparently able to maintain on 4 liters per nasal cannula. Noted switch to cefepime within the last 24 hours. We will continue the current approach. He was able to expectorate some sputum; we will await those results. He remains very tenuous at this point, continue to monitor expectantly. <ELECTRONICALLY SIGNED> By: Micah Colindres MD 07/22/18 1408 1651 1107Joaldair Colindres MD /nt
[2018-07-22 17:04] VITALS: BP 127/55
[2018-07-22 20:00] VITALS: BP 120/53
[2018-07-23] VITALS (7 sets, daily range): BP systolic 120–132; BP diastolic 50–73
[2018-07-23] MEDS ORDERED: ATIVAN0.5 MG PO (12:21)
[2018-07-23] MEDS ORDERED: PREDNISONE 10 M10 MG PO (12:21)
[2018-07-23] MEDS ORDERED: CYMBALTA30 MG PO (12:21)
[2018-07-23] MEDS ORDERED: NICOTINE TRANSD21 M1 TRANSDERM (12:21)
[2018-07-23] MEDS ORDERED: FLOMAX0.4 MG PO (12:21)
[2018-07-23] MEDS ORDERED: CEFDINIR300 MG PO (13:30)
[2018-07-23] MEDS ORDERED: SENNA8.6 MG PO (13:39)
[2018-07-23] MEDS ORDERED: SORINE 80 MG TA80 M1 PO (13:44)
[2018-07-23] MEDS ORDERED: ALBUTEROL2.5 MG/31 INH (13:50)
== END 2018-07-23 14:35 | disposition home health service (06) | DRG 177 ==
LOC: M.ERS 16:51 → M.2W 17:45 → M.TBA-ER 17:45 → M.2W 19:03
PROVIDERS: Family Medicine; Internal Medicine; Internal Medicine Critical Care Medicine; ADMIT Internal Medicine
DX: J15.6 Pneumonia due to other Gram-negative bacteria (principal); J96.21 Acute and chronic respiratory failure with hypoxia; I21.A1 Myocardial infarction type 2; R04.2 Hemoptysis; C92.10 Chronic myeloid leukemia, BCR/ABL-positive, not having achieved remission; I10 Essential (primary) hypertension; K21.9 Gastro-esophageal reflux disease without esophagitis; M10.9 Gout, unspecified; I25.10 Atherosclerotic heart disease of native coronary artery without angina pectoris; I73.9 Peripheral vascular disease, unspecified; E78.5 Hyperlipidemia, unspecified; D46.9 Myelodysplastic syndrome, unspecified; J43.9 Emphysema, unspecified; I48.0 Paroxysmal atrial fibrillation; K59.00 Constipation, unspecified; R33.9 Retention of urine, unspecified; B37.9 Candidiasis, unspecified; I25.2 Old myocardial infarction; Z95.5 Presence of coronary angioplasty implant and graft; Z95.1 Presence of aortocoronary bypass graft; Z89.611 Acquired absence of right leg above knee; Z82.49 Family history of ischemic heart disease and other diseases of the circulatory system; Z90.5 Acquired absence of kidney; Z88.8 Allergy status to other drugs, medicaments and biological substances; Z87.891 Personal history of nicotine dependence

== ENCOUNTER 2018-07-26 14:27 | Inpatient (IN) | payer OTHER ==
[~2018-07-26] VITALS: Ht 182.9 cm; Wt 49.0 kg
[~2018-07-26 14:27] MED LIST changes: +ALBUTEROL2.5 MG/31 INH; +ATIVAN0.5 MG PO; +CEFDINIR300 MG PO; +CENTRUM SILVER1 EAC2 PO; +CYMBALTA30 MG PO; +FLOMAX0.4 MG PO; +NICOTINE TRANSD21 M1 TRANSDERM; +NITROGLYCERIN0.4 MG SUBLING; +SENNA8.6 MG PO; +SORINE 80 MG TA80 M1 PO
[2018-07-26 14:46] VITALS: BP 126/49
[2018-07-26 15:05] LABS: HEMATOCRIT 28.7 % (42.0-52.0); HEMOGLOBIN 9.3 gm/dL (14.0-18.0); MCH 26.3 pg (26.0-34.0); MCHC 32.4 g/dL (28.0-37.0); MCV 81.1 fL (80.0-100.0); MPV 7.6 fl. (7.2-11.1); NUCLEATED RBCS 0 /100WBC; PLATELET COUNT* 260 thou/uL (150-400); RBC 3.54 mil/uL (4.50-6.00); RDW-CV 16.5 % (10.5-14.5)
[2018-07-26 15:07] LABS: WBC 50.2 thou/uL (4.0-11.0)
[2018-07-26 15:15] LABS: ANION GAP 0 mmol/L (7-16); BUN 20 mg/dL (7-18); CALCIUM 8.4 mg/dL (8.5-10.1); CHLORIDE 101 mmol/L (98-107); CO2 34 mmol/L (21-32); CREATININE 1.1 mg/dL (0.6-1.3); GLUCOSE 154 mg/dL (70-99); POTASSIUM 4.5 mmol/L (3.5-5.1); SODIUM 135 mmol/L (136-145)
[2018-07-26 15:16] LABS: APTT 26.6 Seconds (25.0-31.3); INR 1.3; PROTIME 12.9 Seconds (9.20-11.50)
[2018-07-26 15:26] LABS: ALKALINE PHOSPHATASE 138 U/L (46-116); NT-PRO BRAIN NAT PEPTIDE 2102 pg/mL (<300); SGOT 35 U/L (15-37); SGPT 63 U/L (30-65); TOTAL BILIRUBIN 0.4 mg/dL (<0.1-1.0); TOTAL PROTEIN 5.3 g/dL (6.4-8.2); TROPONIN-I LEVEL <0.06 ng/mL (<0.06)
[2018-07-26 15:42] LABS: ABSOLUTE LYMPHOCYTES 1.5 thou/uL (0.8-5.3); ABSOLUTE NEUTROPHILS 47.7 thou/uL (1.6-8.1); ATYPICAL LYMPHS 1 %; METAMYELOCYTES 2 %
[2018-07-26 15:47] LABS: PLATELET ESTIMATE ADEQUATE
--- NOTE | 2018-07-26 17:33 | NUR ---
PT PLACED ON HOSPITAL BED
[2018-07-26 22:40] VITALS: BP 136/75
[2018-07-26 22:52] VITALS: BP 101/40
[2018-07-26 23:00] VITALS: BP 137/61
[2018-07-27] VITALS (9 sets, daily range): BP systolic 102–135; BP diastolic 33–69
[2018-07-27 03:51] LABS: ABSOLUTE BASOPHILS 0.1 thou/uL (0.0-0.2); ABSOLUTE LYMPHOCYTES 0.2 thou/uL (0.8-5.3); ABSOLUTE MONOCYTES 0.1 thou/uL (0.0-1.2); BASOPHILS 0.2 %; HEMATOCRIT 29.4 % (42.0-52.0); HEMOGLOBIN 9.4 gm/dL (14.0-18.0); LYMPHOCYTES 0.5 %; MCH 26.1 pg (26.0-34.0); MCHC 31.9 g/dL (28.0-37.0); MCV 81.7 fL (80.0-100.0); MONOCYTES 0.2 %; NUCLEATED RBCS 0 /100WBC; PLATELET COUNT* 236 thou/uL (150-400); POLYS 99.1 %; RDW-CV 16.5 % (10.5-14.5)
[2018-07-27 03:53] LABS: ABSOLUTE NEUTROPHILS 43.9 thou/uL (1.6-8.1)
[2018-07-27 03:54] LABS: WBC 44.3 thou/uL (4.0-11.0)
[2018-07-27 04:02] LABS: ALBUMIN 1.7 g/dL (3.4-5.0); CALCIUM 8.3 mg/dL (8.5-10.1); CREATININE 1.1 mg/dL (0.6-1.3); MAGNESIUM 1.9 mg/dL (1.8-2.4); PHOSPHORUS* 4.3 mg/dL (2.5-4.9); TOTAL BILIRUBIN 0.4 mg/dL (<0.1-1.0)
--- NOTE | 2018-07-27 06:28 | NUR ---
ADMIT TO ICU 2 AT 2245, SEE ASSESSMENTS. PT HAS DENIES SOA TONIGHT, O2 MAINTAINED AT 2L PER NC WITH SAT >92%. PT HAS BEEN A/O X4 AND INTERACTED APPROPRIATELY THROUGHOUT THE NIGHT, NO APPARENT DROWSINESS OR LETHARGY NOTED IN ED UPON ARRIVAL. VSS. ESPINOZA ORDERED, NOT YET INSERTED PER PT REQUEST AND ABILITY TO VOID INDEPENDENTLY. CRITICAL WBC'S TRENDING DOWN. CALL LIGHT WITHIN REACH.
--- NOTE | 2018-07-27 08:59 | NUR ---
ASSUMED CARE OF PT AROUND 0730 THIS AM. REFER TO ASSESSMENT. PT ON HOME O2 DOSE AT 2L/NC. NO C/O SOA. VSS. NO OTHER CONCERNS AT THIS TIME. CLWR. WCTM.
--- NOTE | 2018-07-27 10:13 | EKG ---
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 [employer] Layer: : 1935 Requested By: Blaise Jimenez Order Number: [id number] MD: Leo Pop Measurements Intervals Polo Rate: 63 P: 63 MS: 116 QRS: 89 QRSD: 126 T: 16 QT: 409 QTc: 419 Interpretive Statements Sinus rhythm with short MS interval Right bundle branch block Minimal ST elevation, anterior leads Compared to ECG 07/19/2018 12:18:39 ST (T wave) deviation now present Atrial premature complex(es) no longer present Left anterior fascicular block no longer present Electronically Signed On 07-27-2018 10:13:09 CDT by Leo Pop [email or web address] <ELECTRONICALLY SIGNED> By: Leo Pop MD, FACC 07/27/18 1013 1531 1531 Leo Pop MD, FACC /EPI
--- NOTE | 2018-07-27 10:15 | NUR ---
PT KNOWN TO CASE AMARJIT FROM PREVIOUS ADMISSION, PT HERE 07/16-07/23. PT IS CURRENT WITH [facility]. PT LIVES WITH HIS , HE HAS A WALKER AND W/C AT HOME. HE WAS SET UP WITH HOME OXYGEN AND NEBULIZER FROM [facility] DURING HIS LAST HOSPITAL STAY. CONTRERAS OCASIO WILL CONTINUE TO FOLLOW.
[2018-07-27 13:23] LABS: URINE BILIRUBIN NEGATIVE (Negative); URINE BLOOD NEGATIVE (Negative); URINE CLARITY CLEAR; URINE COLOR YELLOW; URINE GLUCOSE-RANDOM NEGATIVE (Negative); URINE KETONES NEGATIVE (Negative); URINE LEUKOCYTES-REFLEX NEGATIVE (Negative); URINE NITRITE-REFLEX NEGATIVE (Negative); URINE PROTEIN 1+ (Negative); URINE SPECIFIC GRAVITY >= 1.030 (1.005-1.030); URINE UROBILINOGEN 0.2 E.U./dl (0.2-1.0)
--- NOTE | 2018-07-27 16:20 | NUR ---
PT PROGRESSING TOWARDS GOALS THIS SHIFT. REMAINS A&OX4, NO CONFUSION NOTED. TELE SR WITH PAC,PVC'S. PT DOWNGRADED TO M/S TELE STATUS. NO TELE BEDS AVAILABLE AT THIS TIME FOR TRANSFER. AT BEDSIDE FREQUENTLY. WOUND CONSULT COMPLETED. OXYGEN >92% ON 2L/NC O2, HOME DOSE. NO OTHER CONCERNS AT THIS TIME. CLWR. WCTM.
--- NOTE | 2018-07-27 16:37 | NUR ---
WOUND CARE NOTE: CONSULT RECEIVED FOR MULTIPLE WOUNDS. PT SITTING UP IN CHAIR WHEN ASSESED. PT SITTING ON A PILLOW, STATES HIS BOTTOM IS SORE. PT DOES HAVE A STAGE 2 PU ON BILAT BUTTOCK. THE RIGHT ONE MEASURES 1.5X0.7X0.1, THE LEFT ONE MEASURES 0.7X0.8X0.1. BOTH ARE RED, NON BLANCHING, SMALL OPEN AREAS NOT DRAINING. SKIN NOT FULLY REMOVED FROM TOP OF WOUND BED. JAME WOUND IS RED, NON BLANCHING. WOUNDS WERE WASHED WITH WOUND CLEANSER, 3X3 BOARDERED FOAM APPLIED. WAFFLE CUSHION PROVIDED WHILE PT SITS IN CHAIR. 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 THERE IS A HEALING WOUND AT THE SUTURE SITE. IT IS CLOSED, SMALL AMOUNT OF SCABBING NOTED. PT STATES HIS DRS HAVE TOLD HIM ONLY TO WASH IT WITH SOAP AND WATER WITH NO DRESSINGS OR LOTIONS. NOTHING DONE WITH THE WOUND IT IS HEALING. LEFT GREAT TOE HAS ULCERATION TO DISTAL ASPECT. NON BLANCING, IT IS CALLOUSED, MEASURES 0.6X0.8X0.0. PT STATES HE HAS HAD IT FOR APPROX 6 MONTHS AND IT IS "LOOKING BETTER". HE STATES IT ONLY HURTS IF HE BUMPS IT ON SOMETHING. PT DENIES HIS SHOES BEING TO TIGHT, THEY ARE TOO BIG INSTEAD. NO WOUND CARE DONE, PT IS WEARING SOCKS AT THIS TIME. LEFT ARM HAS SMALL SKIN TEAR PRESENT, PT STATES IT HAPPENED HERE. IT MEASURES 0.4X2.5X0.2. THERE IS DRIED BLOOD ON IT, IT IS APPROXIMATED WELL AND HEALING. WASHED WITH SOAP AND WARM WATER. XEROFORM APPLIED AND COVERED WITH BOARDERED FOAM. PT TOLERATED DRESSING CHANGES WELL. PT ENCOURAGED TO OFF LOAD HIS BUTTOCK WHILE IN BED AND USE THE WAFFLE CUSHION WHILE IN THE CHAIR. PT ALSO EDUCATED ON GETTING A SHOE THAT FITS BETTER. VERBALIZED UNDERSTANDING. RECOMEND: WOUND DRESSING CHANGES ORDERED. WAFFLE CUSHION TURN Q2 HRS GOOD NUTRITION TO PROMOTE HEALING BETTER FITTING SHOE.
[2018-07-27 23:09] LABS: GLYCOHEMOGLOBIN (HGB A1C) 6.8 % (4.8-5.6)
[2018-07-28 05:14] VITALS: BP 129/54
--- NOTE | 2018-07-28 05:27 | NUR ---
VSS. PT HAS DENIES PAIN AND SOA THROUGHOUT THE NIGHT. CALL LIGHT WITHIN REACH.
[2018-07-28 08:39] VITALS: BP 129/53
--- NOTE | 2018-07-28 10:30 | NUR ---
SPOKE WITH PT AND . PT WAS DISCHARGED HOME LAST THURSDAY, READMITTED ON THURSDAY. PT SAID HE DID OKAY WITH HIS OXYGEN OVER THE WEEKEND, 'BUT THE PORTABLE TANK IS HEAVY AND THE CONCENTRATOR IS HUGE, I NEED SOMETHING THAT I CAN GET AROUND WITH EASIER.' [facility] WAS CONTACTED LATE ON THURSDAY AND PLANNED TO CALL PT THIS WEEK TO SEE WHAT OTHER OXYGEN DELIVERY SYSTEMS WERE AVAILABLE FOR HIM. WILL LET [facility] KNOW PT IS BACK [facility]. PT SAID [facility] NURSE CAME OUT TWICE, 'JUST SAT THERE AND WROTE THINGS DOWN, LISTENED TO MY CHEST AND LEFT. IF THEY AREN'T GOING TO DO ANYTHING MORE THAN THAT, THEN I DON'T NEED THEM.' PT PLANS ON RETURNING HOME WITH , HE SAID HE WOULD AGREE TO HOME HEALTH COMING OUT AGAIN. DISCUSSED ROLE OF CASE MGT, WILL CONTINUE TO FOLLOW. CALLED AND LEFT MESSAGE FOR [facility] WEB ADMINISTRATOR TO CALL ME.
--- NOTE | 2018-07-28 10:39 | CON ---
[address] [address] CONSULTATION Name: GERMAN NAIK Room: [address] IN M.R.#: [id number] Admission: 07/26/18 Attend Phys: Andrea Harris MD Discharge: Date of : 35 Report #: [id number] THIS REPORT FOR: //name// CC: Alexander Harris DATE OF SERVICE: 07/27/2018 REASON FOR CONSULTATION: Pneumonia, pulmonary infiltrate. HISTORY OF PRESENT ILLNESS: This is an 83-year-old male patient who was admitted in the Emergency Room on 07/26/2018, after he was sent by his home health nurse because of difficulty breathing and worsening respiratory status. The patient was actually at this facility in late June, early July for pneumonia, which was thought to be related to aspiration, although he passed a swallow evaluation and video swallow evaluation at that time. He was discharged home on oxygen, which he acquired during last hospitalization. He has a background history of COPD. He smoked all his life except the last couple of weeks since the last hospitalization and he has history of non-ST elevation DC. Apparently, he became lethargic yesterday and his respiratory status got worse, became more congested and came to the ER. His chest x-ray showed pulmonary infiltrate. During the last hospitalization, he was treated with IV antibiotics and discharged on oxygen as mentioned above. Today, the patient actually I saw him after he ate breakfast. He is sitting in bed. He is on 2 liter oxygen. He is not happy that he is here. He does not think he needs to be here. His exjhxko-dm-lxo at the bedside reported that the patient smoked all his life, although he was trying to wear his oxygen at home, but yesterday he was lethargic, less responsive according to the fboflku-di-imy. He was seen by our group in the last hospitalization. His CT scan during last hospitalization demonstrated bilateral infiltrate and he had an echocardiogram in 06/2018. His EF at that time was 60% and diastolic function reported to be normal and pulmonary artery pressure of 45 mmHg. PAST MEDICAL HISTORY: COPD, chronic respiratory failure, on home oxygen at 2 liters per minute. Ex-smoker, just quit smoking a few weeks ago. Coronary artery disease, recent DC, AFib, history of myelodysplastic syndrome, chronic leukocytosis, history of hypertension. PAST SURGICAL HISTORY: Carotid endarterectomy, back surgery, history of endovascular stent graft and CABG. FAMILY HISTORY: Positive for coronary artery disease. ALLERGIES: [place] [address] CONSULTATION Name: GERMAN NAIK Room: [address] IN ..#: [id number] Admission: 07/26/18 Attend Phys: Andrea Harris MD Discharge: Date of : 35 Report #: [id number] SOCIAL HISTORY: He smoked since he was 15 years old until around 2 weeks ago up to 2 packs per day, does not drink alcohol. REVIEW OF SYSTEMS: All systems reviewed with the patient and negative other than what is mentioned above and he has history of right below knee amputation. He denied lower extremity edema. He denied dysphagia, cough with meals. The rest of the review of system was negative. PHYSICAL EXAMINATION: GENERAL: Sitting in bed, not in distress, speaks in full sentences, anxious, not happy that he is at the hospital. HEENT: Head normocephalic, atraumatic. Pupils are reactive to light. Not pale, not jaundiced. Externally ear looks normal. Oral cavity, moist mucous membranes with poor dentition. CHEST: Diminished air movement bilaterally. I did hear rhonchi bilaterally with end-expiratory wheeze. Symmetrical expansion, nontender. HEART: S1, S2 regular rate and rhythm. No added sounds. ABDOMEN: Benign, soft, lax, nontender, soft. EXTREMITIES: Lower extremity, no edema noted in the left lower extremity. Right below knee amputation. SKIN: Normal for age and race, no rash. IMAGING: CT head did not show acute pathology. His chest x-ray demonstrated persistent bilateral infiltrate. LABORATORY DATA: His white blood count was elevated at 50,000 with hemoglobin 9.3 and platelets of 260 and he had left shift on the differential. His INR is 1.3. His creatinine is 1.1 with a BUN of 26. Sodium 135, potassium of 5. His BNP was elevated. IMPRESSION: 1. Nwazy-ia-gzluczm respiratory failure. 2. Chronic obstructive pulmonary disease exacerbation. 3. Pneumonia. 4. Still suspect aspiration into the airways. 5. Likely dysphagia. Although, the patient passed a swallow evaluation, but I suspect there is an aspiration related pneumonia at this point. It is not clear to me if his mental status got worse and he started aspirating or the other way around. After pneumonia, he developed lethargy and he has been more liable to aspiration. I would continue the patient on aspiration precaution. I would continue the antibiotics. With history of chronic obstructive pulmonary disease, I would keep the IV steroids at least for another 24-48 hours. His EF was normal, but he has elevated BNP. I would be careful with IV hydration. He is on full [facility] [address] [place] [address] CONSULTATION Name: GERMAN NAIK Room: M002-P [facility] IN [facility]#: [id number] Admission: 07/26/18 Attend Phys: Andrea Harris MD Discharge: Date of : 35 Report #: [id number] anticoagulation, so unlikely has thromboembolic disease. Would recommend being cautious with sedatives, hypnotics. Discussed with the patient and his family member at the bedside. Discussed with Dr. Harris and RN. Critical care time 35 minutes. <ELECTRONICALLY SIGNED> By: Madelyn Villegas MD 07/28/18 1039 1007 [id number] Villegas MD /nt
--- NOTE | 2018-07-28 11:57 | CON ---
[address] [address] CONSULTATION Name: HEENAGERMAN MITESH Room: [address] ADM IN M.R.#: [id number] Admission: 07/26/18 Attend Phys: Andrea Harris MD Discharge: Date of : 35 Report #: [id number] THIS REPORT FOR: //name// CC: Alexander Harris DATE OF SERVICE: 07/27/2018 ATTENDING PHYSICIAN: Andrea Harris MD. REASON FOR EVALUATION: Pneumonitis. HISTORY OF PRESENT ILLNESS: Chart reviewed, patient examined. This is an 83-year-old known to myself who was recently hospitalized with similar type complaints. He is complaining of shortness of breath. He is on chronically 2 liters of oxygen per nasal cannula at home and according to the records, had some degree of chest discomfort, although on personal questioning, he denies any particular change in overall situation. He does have ongoing issues with some cough. It has been attributed to the COPD, recent pneumonia. On evaluation, he was found to have elevated white count of 50,000. It is notable when he was discharged, white count was at 37,000 back on 07/22/2018. It appears review of his history is persistently elevated white counts over the last at least three months in the 34,000 range mainly. 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 He was started empirically on antimicrobials with cefepime as well as vancomycin. He has not had fevers. ALLERGIES: TO AMBIEN. MEDICATIONS: Include duloxetine, nicotine patch, ferrous sulfate, atorvastatin, vancomycin, pantoprazole, gabapentin, methylprednisolone, sotalol, senna, tamsulosin, melatonin, apixaban, levofloxacin, cefepime, lorazepam, nitroglycerin. PAST MEDICAL HISTORY: As described above COPD, has known vasculopathy with coronary artery disease, previous stenting, has aortocoronary bypass grafting, abdominal aortic aneurysm repair, hypertension, reflux, gout, has peripheral vascular disease with fem-pop bypass, right below the knee amputation, right carotid endarterectomy. SOCIAL HISTORY: Former smoker. No ethanol. FAMILY HISTORY: Noncontributory. REVIEW OF SYSTEMS: As above. He has got poor appetite. [place] [address] CONSULTATION Name: NAIKGERMAN MITESH Room: [address] IN [facility]#: [id number] Admission: 07/26/18 Attend Phys: Andrea Harris MD Discharge: Date of : 35 Report #: [id number] Denies significant gastrointestinal-related complaints. Otherwise, 10-point review of systems other than noted above in history of present illness. PHYSICAL EXAMINATION: GENERAL: Appears chronically ill, undernourished, is in moderate distress. VITAL SIGNS: Temperature 98, pulse 55, respirations 20, blood pressure 106/49. SKIN: Warm, dry. HEENT: Normocephalic. Extraocular muscles are intact. NECK: Supple. LUNGS: Scattered coarse breath sounds. HEART: Distant, regular. Borderline bradycardic. I do not appreciate a murmur. ABDOMEN: Soft, nontender. There are no peritoneal signs. GENITOURINARY: Deferred. RECTAL: Deferred. LABORATORY DATA: Blood cultures are sterile thus far. Lactic acid 1.4. Electrolytes: Sodium 135, potassium 4.5, chloride 101, bicarbonate is 34, anion gap of zero. BUN and creatinine 20 and 1.1, glucose of 154. LFTs unremarkable with alkaline phosphatase is elevated slightly at 138. Albumin of 2.0, total protein 5.3, estimated GFR 64. Chest x-ray compared to prior study 07/22/2018 showed patchy bilateral perihilar infiltrates, mostly unchanged. CBC: White count of 50.2, H and H 9.3 and 28.7, platelets of 260. Repeat CBC this morning, white count of 44.3. Prealbumin 21.6. Troponin less than 0.06. ASSESSMENT AND PLAN: Chronic respiratory failure and perhaps a component of pneumonitis. It is not clear he is much different than when he was discharged. The elevated white count I think has attributed to primary hematological issue. From a subjective standpoint, he says he feels about the same. It is clear he is not eating and overall think he is deteriorating. We will continue combination therapy with cefepime and vancomycin, discontinue levofloxacin. Would be concerned about adverse drug effects and perhaps drug-drug interactions as well and see how he does clinically and remains quite tenuous. <ELECTRONICALLY SIGNED> By: Micah Colindres MD 07/28/18 1157 1 34Joaldair Colindres MD /nt
[2018-07-28 12:00] VITALS: BP 146/62
--- NOTE | 2018-07-28 12:56 | NUR ---
Nutrition: pt admit with PNA. PU on buttocks. Wt up from a couple of weeks ago, now same as wt 4 months ago. Wt is WNL. Prealbumin is WNL. Other labs and meds reviewed. Ate 75% of brekfast this time, wants Ensure at least TID. Assessed at low nutrition risk.
[2018-07-28 16:00] VITALS: BP 129/51
--- NOTE | 2018-07-28 18:19 | NUR ---
PATIENT PROGRESSING WELL TOWARDS GOALS. SKIPPED LUNCH TODAY AND FAMILY BROUGHT HIM DINNER TO EAT DUE TO HIM NOT LIKING MEAL FROM [place]. VITALS REMAIN WITHIN NORMAL LIMITS. NO REPORTS OF PAIN, NAUSEA OR SHORTNESS OF AIR. BED IN LOWEST POSITION, CALL LIGHT IN REACH, CARDIAC CATH TECHNOLOGIST IN PLACE
[2018-07-29 03:45] LABS: HEMATOCRIT 29.8 % (42.0-52.0); HEMOGLOBIN 9.4 gm/dL (14.0-18.0); MCH 25.8 pg (26.0-34.0); MCHC 31.4 g/dL (28.0-37.0); MCV 82.1 fL (80.0-100.0); NUCLEATED RBCS 0 /100WBC; PLATELET COUNT* 199 thou/uL (150-400); RBC 3.63 mil/uL (4.50-6.00); RDW-CV 17.1 % (10.5-14.5)
[2018-07-29 03:49] LABS: WBC 78.5 thou/uL (4.0-11.0)
[2018-07-29 03:58] LABS: CALCIUM 7.7 mg/dL (8.5-10.1); MAGNESIUM 2.1 mg/dL (1.8-2.4); POTASSIUM 4.7 mmol/L (3.5-5.1)
[2018-07-29 04:17] LABS: ABSOLUTE LYMPHOCYTES 6.3 thou/uL (0.8-5.3); ABSOLUTE MONOCYTES 4.7 thou/uL (0.0-1.2); ABSOLUTE NEUTROPHILS 67.5 thou/uL (1.6-8.1); PLATELET ESTIMATE ADEQUATE
--- NOTE | 2018-07-29 07:55 | NUR ---
VSS. O2 TITRATED TO RA BY RT EARLY IN THE NIGHT RA O2 SAT WAS 94%. APPROXIMATELY 0400 RT REPORTED TO THIS RN THAT PTS LUNGS HAD BECOME COARSE AND RA O2 SAT WAS 82%. CALL PLACED TO DR ULYSSES JOHNSON, ORDER RECEIVED FOR LASIX IVP WHICH WAS GIVEN ORDERED. LUNG SOUNDS AND O2 SAT IMPROVED, PT MAINTAINED ON 2L O2 PER NC. DR PABLO ON UNIT AT THIS TIME, INFORMED OF CRITICAL WBC. STATES PTS RECENT BONE MARROW BIOPSY RESULTS SHOW NON-SPECIFIC BLOOD CANCER, NOT LEUKEMIA.
--- NOTE | 2018-07-29 09:20 | NUR ---
TRANSFER NOTE - REC REPORT FROM LORELEI RODRIGUEZ. NO QUESTIONS. PT ARRIVED TO FLOOR AT THIS TIME. FAMILY AT BEDSIDE. ORIENTED TO SURROUNDINGS AND CALL LIGHT. AGREE WITH PREVIOUS DOCUMENTATION. WILL CONTINUE TO MONITOR.
--- NOTE | 2018-07-29 09:30 | NUR ---
SPOKE WITH ZOHRA FROM [facility], THEY WILL TAKE PT BACK ON SERVICE AT DISCHARGE. SPOKE WITH TRAY AT [facility], SHE WILL WORK ON GETTING PT A SMALLER, MORE PORTABLE OXYGEN DELIVERY SYSTEM.
[2018-07-29 11:41] VITALS: BP 135/55
--- NOTE | 2018-07-29 12:15 | NUR ---
PT CARE ASSUMED AFTER REPORT. AM ASSESSMENT COMPLETE. PT TRANFERED TO ROOM 214. REPORT TO RNSTACIA. ALL BELONGINGS TAKEN BY AND DAUGHTER TO ROOM 214.
[2018-07-29 15:57] VITALS: BP 143/54
--- NOTE | 2018-07-29 16:56 | NUR ---
SHIFT NOTE - FAMILY PRESENT AT BEDSIDE FOR MOST OF THIS SHIFT. WOUND CARE ASSESSED PT THIS SHIFT. DRESSINGS CHANGED. WILL CONTINUE TO MONITOR.
--- NOTE | 2018-07-29 17:25 | NUR ---
WOUND NURSE: PATIENT SEEN FOR WOUND ASSESSMENT FOLLOWS: DEEP TISSUE INJURY ON THE LEFT HEEL MEASURIN.0 X 2.5 CM AND PRESENTS A PURPLE, BOGGY, NONBLANCHEABLE LESION. CLEANSED WITH SOAP AND WATER, RINSED, THEN PATTED DRY. APPLIED ABD, THEN WRAPPED WITH KERLEX ROLL GAUZE. PATIENT HAS SMALL ECCHYMOTIC AREA ON DISTAL GREAT TOE WHICH IS RED, NONBLANCHEABLE. THIS WAS LEFT OPEN TO AIR. THERE IS CONCERN FOR ARTERIAL STATUS OF THIS LEG D/T DIFFICULT TO AUSCULTATE DOPPLER IN DORSALIS PEDIS AND POSTERIOR TIBIL PULSE. FOR THIS REASON, VASCULAR AND PODIATRY CONSULT WAS RECOMMENDED AND PAGED TO [facility] SPECIALIST PHYSICIAN. PATIENT HAS A HEALING STAGE 2 PRESSURE ULCER ON SACRUM MEASURING 1.2 X 1.2 X 0.1 CM AND PRESENTS WITH PARTIAL THICKNESS TISSUE LOSS AND SCANT SEROUSANGUINOUS DRAINAGE. CLEANSED WITH SOAP AND WATER, RINSED, THEN PATTED DRY. APPLIED SKIN PREP TO INTACT PERIWOUND TISSUE, THEN COVERED WITH EXUDERM CUT TO FIT AND SECURED IN PLACE USING SURESITE TRANSPARENT DRESSING. PLAN TO CHANGE DRESSING Q 3 DAYS AND PRN. 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 LEFT FOREAREM SKIN TEAR IS CLOSED AND WITHOUT NEED OF INTERVENTION. HAS A LIGHT FISHER CRUST ON THE DISTAL ASPECT OF HIIS NOSE WHICH PATIENT REPORTS HE SEES A SKIN CANCER DOCTOR FOR AND THERE IS NO PLAN TO MANGE INTERVENTION AT THIS TIME. REMOVED SCABS ON LLE TO FIND PINK INTACT SKAR TISSUE UNDERNEATH -- NO INTERVENTION NECESSARY. PLANNED TO USE HEELMEDIX HEEL PROTECTOR, BUT PATIENT BECAME IRATE AND REFUSED TO USE IT. EXPLAINED THE PURPOSE, BUT PATIENT DISINTERESTED. PLAN TO KEEP HEEL OFF MATTRESS WITH PILLOWS A RESULT. PATIENT DAUGHTER AND IN THE ROOM, EXPLAINED THE IMPORTANCE OF OFFLOADING HEEL AND SACRUM, STRONGLY RECOMMENDING SIDE LYING AND REPOSITIONING EVERY 1 TO 2 HOURS. PATIENT WAS RECEPTIVE IN PODIATRY AND VASCULAR CONSULTS.
[2018-07-29 20:20] VITALS: BP 147/67
[2018-07-30 01:06] VITALS: BP 116/65
[2018-07-30 04:18] VITALS: BP 161/68
--- NOTE | 2018-07-30 05:42 | NUR ---
PT CARE ASSUMED AT 1930. SAT MAINTAINED IN 02. ALERT AND ORIENTED X4. CALL LIGHT WITHIN REACH AND BED IN LOW POSITION. DENIES PAIN AND SOB. HOURLY ROUNDING DONE FOR PT SAFETY.
--- NOTE | 2018-07-30 08:01 | CON ---
[address] [address] CONSULTATION Name: GERMAN NAIK Room: [address] IN M.R.#: [id number] Admission: 07/26/18 Attend Phys: Andrea Harris MD Discharge: Date of : 35 Report #: [id number] THIS REPORT FOR: //name// CC: Alexander Harris DATE OF SERVICE: 07/29/2018 INPATIENT CONSULTATION DIAGNOSIS: Chronic myeloproliferative neoplasm, unspecific. SUBJECTIVE: The patient was admitted to the hospital because of worsening shortness of breath. He is supposed to follow up in the clinic earlier this week to discuss his final pathology of his bone marrow biopsy. Mutation analysis came back negative for MPL, calreticulin, BCR-ABL1, JAK2. I discussed with the pathologist, which was more consistent of chronic myeloproliferative neoplasm, nonspecific. The patient had hypercellular bone marrow around 90-70% with increased megakaryocytes; however, there was no evidence of increased blasts, ruling out a possibility of leukemia. BCR-ABL came back negative, ruling out possibility of CML. The patient has been on empiric antibiotics. His white count has been elevated. His baseline was around 32,000; however, during hospital stay, it went up to 50,000 and 78,000 today. REVIEW OF SYSTEMS: All systems were reviewed, it was negative except for the above. PAST MEDICAL HISTORY: Newly diagnosed chronic myeloproliferative neoplasm, AFib, bladder fistula, coronary artery disease, COPD, hypertension, dyslipidemia. PAST SURGICAL HISTORY: Carotid endarterectomy, back surgery, endovascular stent graft for AAA, history of CABG. MEDICATIONS: Per admission list. ALLERGIES: AMBIEN. FAMILY HISTORY: Noncontributory. SOCIAL HISTORY: He is an active smoker. No alcohol abuse or drug abuse. PHYSICAL EXAMINATION: VITAL SIGNS: Today, temperature is 36.6, pulse is 57, respirations 19, blood pressure is 129/51, SpO2 is 93% on 3 liters. GENERAL: The patient was lying in bed. He is [place] [address] CONSULTATION Name: GERMAN NAIK Room: [address] [place] [facility]#: [id number] Admission: 07/26/18 Attend Phys: Andrea Harris MD Discharge: Date of : 35 Report #: [id number] respiratory distress. LUNGS: Positive for rhonchi and scattered wheezing. ABDOMEN: Soft, nontender, nondistended, bowel sounds positive. EXTREMITIES: No edema, no cyanosis, no clubbing. LABORATORY DATA: Today, WBC 78,000; hemoglobin 9.4; platelets 199. PT is 12.9, PTT 26.6. Sodium is 137, potassium is 4.7, creatinine 1.0. Total bilirubin 0.7, AST is 23, ALT is 52. IMAGING: CT head: No intracranial process. A chest x-ray showed persistent patchy bilateral interstitial infiltrates. ASSESSMENT AND PLAN: An 83-year-old male who was evaluated because of persistent leukocytosis, status post bone marrow biopsy, which came back as chronic myeloproliferative neoplasm, nonspecific type. CML and PV has been ruled out. At this point, elevation of his white count is most likely due to baseline elevation of leukocytosis in addition to steroids and pneumonia. RECOMMENDATIONS: 1. I discussed with the patient to start him on low dose of Hydrea 500 mg p.o. daily to control his counts. This will cover the 2 differential diagnoses, which is a prefibrotic primary myelofibrosis and ET. 2. If the patient has no response in the next 10-12 weeks, the next step will be to consider ruxolitinib. The patient is not eligible for transplant. He is not transfusion dependent at this point. <ELECTRONICALLY SIGNED> By: Michael Felder MD 07/30/18 08 08 [id number] Felder MD /nt
[2018-07-30 08:02] VITALS: BP 156/67
[2018-07-30 10:19] LABS: ABSOLUTE BASOPHILS 0.2 thou/uL (0.0-0.2); ABSOLUTE LYMPHOCYTES 0.4 thou/uL (0.8-5.3); ABSOLUTE NEUTROPHILS 87.3 thou/uL (1.6-8.1); BASOPHILS 0.2 %; HEMATOCRIT 30.5 % (42.0-52.0); HEMOGLOBIN 9.8 gm/dL (14.0-18.0); LYMPHOCYTES 0.5 %; MCH 26.5 pg (26.0-34.0); MCHC 32.3 g/dL (28.0-37.0); MCV 81.9 fL (80.0-100.0); MONOCYTES 0.4 %; MPV 7.8 fl. (7.2-11.1); NUCLEATED RBCS 0 /100WBC; PLATELET COUNT* 157 thou/uL (150-400); POLYS 98.9 %; RBC 3.72 mil/uL (4.50-6.00); RDW-CV 17.4 % (10.5-14.5)
[2018-07-30 10:34] LABS: ABSOLUTE MONOCYTES 0.4 thou/uL (0.0-1.2)
[2018-07-30 10:35] LABS: WBC 88.3 thou/uL (4.0-11.0)
[2018-07-30 11:59] VITALS: BP 140/53
--- NOTE | 2018-07-30 15:05 | NUR ---
WOUND NURSE: PLANNED TO FOLLOW UP WITH PATIENT AND HOSPITALIST REGARDING VASCULAR AND PODIATRY CONSULT. PER THE PATIENT HE NOW DOES NOT WANT EITHER. REQUESTED THIS INFORMATION BE PASSED ON TO DR. BUBBA MD BY THE ASSIGNED STAFF NURSE.
[2018-07-30 15:46] VITALS: BP 150/59
--- NOTE | 2018-07-30 17:36 | NUR ---
PT CARE ASSUMED AFTER REPORT. ASSESSMENT COMPLETE. SR ON MONITOR. PT WITH WEAKNESS AND STATES HE WOULD LIKE FEW INERUPTIONS POSSIBLE TONIGHT SO HE CAN REST. FAMILY AT BEDSIDE THROUGH OUT THE DAY. DR SMALLS, DR MAC, AND DR PERALTA SPOKE WITH PT AND FAMILY. PT APPEARS TO BE ASPIRATING LIQUIDS AND REFUSES TO BE NPO. EDUCATION TO PT AND FAMILY ABOUT ASPIRATION RISK OF PNUEMONIA AND THE POSSIBILITY THAT IS WHY HE NOW HAS PNEUMONIA. PT CONTINUES TO REFUSE NPO. DENIES PAIN. NOT PROGRESSING TOWARDS GOALS.
[2018-07-30 20:30] VITALS: BP 130/68
[2018-07-31] VITALS: BP 126/46; BP 132/57
[2018-07-31 04:00] VITALS: BP 134/52
[2018-07-31 05:10] LABS: CALCIUM 7.6 mg/dL (8.5-10.1); POTASSIUM 3.9 mmol/L (3.5-5.1)
--- NOTE | 2018-07-31 07:55 | NUR ---
PT CARE ASSUMED AT 1930. SAT MAINTAINED IN 02. ALERT AND ORIENTED X4. CALL LIGHT WITHIN REACH AND BED IN LOW POSITION. HOURLY ROUNDING DONE FOR PT SAFETY. DENIES PAIN AND SOB.
[2018-07-31 13:09] VITALS: BP 117/67
[2018-07-31 15:01] LABS: ABSOLUTE BASOPHILS 0.1 thou/uL (0.0-0.2); ABSOLUTE LYMPHOCYTES 0.2 thou/uL (0.8-5.3); ABSOLUTE MONOCYTES 0.2 thou/uL (0.0-1.2); ABSOLUTE NEUTROPHILS 41.7 thou/uL (1.6-8.1); BASOPHILS 0.2 %; HEMATOCRIT 26.8 % (42.0-52.0); HEMOGLOBIN 8.7 gm/dL (14.0-18.0); LYMPHOCYTES 0.4 %; MCH 26.4 pg (26.0-34.0); MCHC 32.5 g/dL (28.0-37.0); MCV 81.1 fL (80.0-100.0); MONOCYTES 0.5 %; MPV 7.7 fl. (7.2-11.1); NUCLEATED RBCS 0 /100WBC; PLATELET COUNT* 103 thou/uL (150-400); POLYS 98.9 %; RBC 3.31 mil/uL (4.50-6.00); RDW-CV 17.5 % (10.5-14.5)
[2018-07-31 15:13] LABS: CALCIUM 7.7 mg/dL (8.5-10.1); CREATININE 1.1 mg/dL (0.6-1.3); POTASSIUM 3.7 mmol/L (3.5-5.1)
[2018-07-31 15:17] LABS: WBC 42.2 thou/uL (4.0-11.0)
[2018-07-31 15:18] LABS: ALBUMIN 1.8 g/dL (3.4-5.0); TOTAL BILIRUBIN 0.6 mg/dL (<0.1-1.0); TOTAL PROTEIN 4.9 g/dL (6.4-8.2)
[2018-07-31 17:46] VITALS: BP 116/46
--- NOTE | 2018-07-31 18:07 | NUR ---
VSS THIS SHIFT. PT EDUCATED REGARDING DC AND PLAN OF CARE AND THE IMPORTANCE OF STAYING IN THE HOSPITAL FOR THE SOTOLOL LOADING. PT AGREEABLE TO STAYING OVERNIGHT AFTER DR AREVALO AGREED TO PROVIDE WITH REGULAR DIET. RESTARTED HER FLEXERLL. PT TOLERATING RA AND IS UP AD MARITA AT THIS TIME WITH NO COMPLICATIONS. PT HAS COLOSTOMY THAT SHE MANAGES AND DRAIN REMOVED WITH DRSG INTACT THAT IS CDI AT THIS TIME. HOURLY ROUNDING MAINTAINED THIS SHIFT. WILL CONTINUE TO MONITOR AND ASSESS.
--- NOTE | 2018-07-31 18:20 | NUR ---
PT VSS THIS SHIFT RUNNING SR W/BBB AND PVC'S ON THE MONITOR. PT ON 8L HUMIDIFIED O2 VIA HIGH FLOW NC AND HAS WHEEZES THROUGHOUT. PT TOLERATING DIET THSI SHIFT AND STAND PIVOTS WITH MINIMAL ASSISTANCE FOR AMBULATORY NEEDS TO WC. PT HAS R BKA, LFA SKIN TEAR, REDDENED COCCYX THAT HAS BARRIER CREAM ON, AND DRESSING THAT IS CDI ON L HEEL THIS SHIFT. PT AND FAMILY INFORMED THAT HE WAS PROVIDED MEDICATIONS INTENDED FOR ANOTHER PATIENT AND WAS UPDATED ON THE EFFECT OF THESE MEDICATIONS WELL THE PLAN IN PLACE TO MONITOR THE AFTER EFFECTS OF THESE MEDICATIONS. PT IS REPORTING NO PAIN AT THIS TIME AND HOURLY ROUNDING MAINTAINED THIS SHIFT. WILL CONTINUE TO MONITOR AND ASSESS.
[2018-07-31 20:30] VITALS: BP 120/62
[2018-08-01] VITALS: BP 132/57
[2018-08-01 04:00] VITALS: BP 145/58
[2018-08-01 04:47] LABS: HEMATOCRIT 24.1 % (42.0-52.0); HEMOGLOBIN 7.9 gm/dL (14.0-18.0); MCH 26.6 pg (26.0-34.0); MCHC 32.8 g/dL (28.0-37.0); MCV 81.2 fL (80.0-100.0); MPV 8.3 fl. (7.2-11.1); NUCLEATED RBCS 0 /100WBC; PLATELET COUNT* 97 thou/uL (150-400); RBC 2.97 mil/uL (4.50-6.00); RDW-CV 17.8 % (10.5-14.5); WBC 35.1 thou/uL (4.0-11.0)
[2018-08-01 05:00] LABS: ALBUMIN 1.7 g/dL (3.4-5.0); CALCIUM 7.3 mg/dL (8.5-10.1); MAGNESIUM 1.9 mg/dL (1.8-2.4); POTASSIUM 4.1 mmol/L (3.5-5.1); TOTAL BILIRUBIN 0.4 mg/dL (<0.1-1.0); TOTAL PROTEIN 4.6 g/dL (6.4-8.2)
[2018-08-01 06:45] LABS: ABSOLUTE LYMPHOCYTES 0.7 thou/uL (0.8-5.3); ABSOLUTE NEUTROPHILS 34.4 thou/uL (1.6-8.1); PLATELET ESTIMATE DECREASED
[2018-08-01 07:35] VITALS: BP 131/54
--- NOTE | 2018-08-01 07:39 | NUR ---
PT CARE ASSUMED AT 1930. SAT MAINTAINED IN 02. ALERT AND ORIENTED X4. C/O PAIN, MEDICATION GIVEN PER EMAR. CALL LIGHT WITHIN REACH AND BED IN LOW POSITION. HOURLY ROUNDING DONE FOR PT SAFETY.
[2018-08-01 13:41] VITALS: BP 143/70
[2018-08-01 18:37] VITALS: BP 142/52
--- NOTE | 2018-08-01 19:03 | NUR ---
PT VSS THIS SHIFT WITH ELEVATED BLOOD SUGARS THAT INSULIN WAS PROVIDED. PT TOLERATING DIET AND FLUIDS/ABX BEING GIVEN VIA IV THIS SHIFT. PHOTOS WERE NOT ABLE TO BE TAKEN THIS SHIFT, WILL TELL ADMINISTRATOR OF HOME HEALTH. PILER PLACED A HOLD ON HYDROXYUREA THIS SHIFT.
[2018-08-01 20:20] VITALS: BP 118/59
[2018-08-02 04:00] VITALS: BP 162/66
--- NOTE | 2018-08-02 04:54 | NUR ---
PT CARE ASSUMED AT 1930. SAT MAINTAINED IN O2. ALERT AND ORIENTED X4. CALL LIGHT WITHIN REACH AND BED IN LOW POSITION. HOURLY ROUNDING DONE FOR PT SAFETY.
[2018-08-02 05:26] LABS: ABSOLUTE BASOPHILS 0.1 thou/uL (0.0-0.2); ABSOLUTE MONOCYTES 0.2 thou/uL (0.0-1.2); BASOPHILS 0.2 %; HEMATOCRIT 26.3 % (42.0-52.0); HEMOGLOBIN 8.5 gm/dL (14.0-18.0); MCH 26.6 pg (26.0-34.0); MCHC 32.5 g/dL (28.0-37.0); MCV 81.9 fL (80.0-100.0); MONOCYTES 0.5 %; MPV 8.2 fl. (7.2-11.1); NUCLEATED RBCS 0 /100WBC; PLATELET COUNT* 92 thou/uL (150-400); POLYS 98.3 %; RBC 3.21 mil/uL (4.50-6.00); RDW-CV 17.8 % (10.5-14.5)
[2018-08-02 05:50] LABS: ABSOLUTE LYMPHOCYTES 0.5 thou/uL (0.8-5.3); ABSOLUTE NEUTROPHILS 44.9 thou/uL (1.6-8.1)
[2018-08-02 05:52] LABS: WBC 45.7 thou/uL (4.0-11.0)
[2018-08-02 05:57] LABS: CALCIUM 7.2 mg/dL (8.5-10.1); CREATININE 0.9 mg/dL (0.6-1.3)
[2018-08-02 08:00] VITALS: BP 140/57
[2018-08-02 11:39] VITALS: BP 130/49
--- NOTE | 2018-08-02 14:30 | NUR ---
RIGHT BASILIC VESSEL ACCESSED FOR 4 NICARAGUAN SINGLE LUMEN PICC. LINE PRE-TRIMMED TO 41CM AND ADVANCED TO THE ZERO MARLEN WITH NO RESISTANCDE MET. UPPER ARM CIRCUMFERENCE ABOVE ISERTION SITE = 9 1/2". SHERLOCK MAGNET AND 3CG CONFIMATION OF TIP TERMINATION AT THE CAVOATRIAL JUNCTION APPRECIATED. GUIDE WIRE REMOVED, LINE FLUSHED AND INSERTION SITE DRESSED. REPORT GIVEN TO LISBETH MOSELEY.
--- NOTE | 2018-08-02 15:09 | NUR ---
CM spoke with Noy from [employer], trilogy delivery was attempted, family refused to sign for it. Noy to f/u with Pt/family tomorrow.
[2018-08-02 15:35] VITALS: BP 132/52
--- NOTE | 2018-08-02 18:58 | NUR ---
ASSUMED PT CARE REPORT RECEIVED FROM NURSE. PT IS AOX4 SR ON MARKET BASKET MAKER. ON 3 L NC. NEW PICC LINE PLACED IN R UPPER ARM BY INFUSION NURSE ORDERED. IV ABX HAS BRYCE PITTMAN. PT REFUSES TURNS. WOUND DRESSING INTACT. WILL CONTINUE TO MONITOR PT
[2018-08-02 19:12] LABS: ABSOLUTE BASOPHILS 0.1 thou/uL (0.0-0.2); ABSOLUTE LYMPHOCYTES 0.1 thou/uL (0.8-5.3); ABSOLUTE MONOCYTES 0.2 thou/uL (0.0-1.2); BASOPHILS 0.2 %; HEMATOCRIT 29.3 % (42.0-52.0); HEMOGLOBIN 9.5 gm/dL (14.0-18.0); LYMPHOCYTES 0.2 %; MCH 26.7 pg (26.0-34.0); MCHC 32.4 g/dL (28.0-37.0); MCV 82.3 fL (80.0-100.0); MONOCYTES 0.4 %; MPV 8.4 fl. (7.2-11.1); NUCLEATED RBCS 0 /100WBC; PLATELET COUNT* 103 thou/uL (150-400); POLYS 99.2 %; RBC 3.56 mil/uL (4.50-6.00); RDW-CV 17.8 % (10.5-14.5)
[2018-08-02 19:16] LABS: ABSOLUTE NEUTROPHILS 42.8 thou/uL (1.6-8.1); WBC 43.1 thou/uL (4.0-11.0)
[2018-08-02 20:00] VITALS: BP 126/41
[2018-08-03] VITALS: BP 126/57
[2018-08-03 04:00] VITALS: BP 143/56
[2018-08-03 05:23] LABS: ABSOLUTE BASOPHILS 0.1 thou/uL (0.0-0.2); ABSOLUTE LYMPHOCYTES 0.2 thou/uL (0.8-5.3); ABSOLUTE MONOCYTES 0.2 thou/uL (0.0-1.2); ABSOLUTE NEUTROPHILS 36.3 thou/uL (1.6-8.1); BASOPHILS 0.2 %; HEMATOCRIT 26.5 % (42.0-52.0); HEMOGLOBIN 8.7 gm/dL (14.0-18.0); LYMPHOCYTES 0.6 %; MCV 81.8 fL (80.0-100.0); MONOCYTES 0.6 %; MPV 8.2 fl. (7.2-11.1); NUCLEATED RBCS 0 /100WBC; PLATELET COUNT* 91 thou/uL (150-400); POLYS 98.6 %; RBC 3.23 mil/uL (4.50-6.00); RDW-CV 17.8 % (10.5-14.5); WBC 36.8 thou/uL (4.0-11.0)
[2018-08-03 05:39] LABS: CALCIUM 7.6 mg/dL (8.5-10.1); CREATININE 1.1 mg/dL (0.6-1.3); MAGNESIUM 1.9 mg/dL (1.8-2.4); POTASSIUM 4.6 mmol/L (3.5-5.1)
--- NOTE | 2018-08-03 06:06 | NUR ---
PATIENT SLEPT MOST OF THE NIGHT. IV ANTIBIOTICS WERE GIVEN ORDERED. PICC LINE REMAINS SALINE LOCKED. PATIENT WAS GIVEN PAIN MEDICINE ONCE. WOUND DRESSINGS REMAIN IN PLACE. WILL CONTINUE TO MONITOR.
[2018-08-03 12:00] VITALS: BP 101/40
--- NOTE | 2018-08-03 15:09 | NUR ---
Cm spoke with Pt's dtr regarding disposition, plan continues to be for Pt to dc back home with [facility], with NU, PT/OT, Aide and SW. CM provided dtr with [facility] info regarding home meal delivery.
[2018-08-03 16:31] VITALS: BP 110/38
[2018-08-03 20:00] VITALS: BP 118/47
[2018-08-03 23:45] VITALS: BP 115/48
--- NOTE | 2018-08-04 01:10 | NUR ---
PT ALERT ORIENTED. PT TURN Q 2 HRS. REFUSES AT TIMES. PT TEACHING ON THE IMPORTANCE OF TURNING. PAIN MEDICATION GIVEN FOR R FOOT. MELATONIN GIVEN HS. R BKA. LEFT FOOT DRSG D/I. TELEMETRY SHOWS SR/SR BBB. VOIDS PER URINAL. O2 AT 3 L N/C.
[2018-08-04 05:46] LABS: HEMOGLOBIN 8.8 gm/dL (14.0-18.0); MCH 27.4 pg (26.0-34.0); MCHC 33.7 g/dL (28.0-37.0); MCV 81.3 fL (80.0-100.0); MPV 8.1 fl. (7.2-11.1); NUCLEATED RBCS 0 /100WBC; PLATELET COUNT* 90 thou/uL (150-400); RDW-CV 17.9 % (10.5-14.5); WBC 28.8 thou/uL (4.0-11.0)
[2018-08-04 06:26] VITALS: BP 131/55
[2018-08-04 06:26] LABS: ABSOLUTE LYMPHOCYTES 0.6 thou/uL (0.8-5.3); ABSOLUTE MONOCYTES 0.3 thou/uL (0.0-1.2); ABSOLUTE NEUTROPHILS 27.9 thou/uL (1.6-8.1); PLATELET ESTIMATE DECREASED
[2018-08-04 06:27] LABS: ANISOCYTOSIS 1+; POIKILOCYTOSIS 1+; POLYCHROMASIA Occasional
[2018-08-04 06:33] LABS: CREATININE 1.1 mg/dL (0.6-1.3); POTASSIUM 4.6 mmol/L (3.5-5.1)
[2018-08-04 08:00] VITALS: BP 100/43
--- NOTE | 2018-08-04 10:16 | NUR ---
Nutrition: reassessment note. Wt is stable and near usual of 121#. H/o HTN, COPD, CAD, PVD, Rt BKA. On ABX. Was admitted for PNA. Physician indicated moderate PCM - defer DX. Pt wanted ensure TID - Glucerna is ordered TID. Unsure of po intake today. BG 123, alb 1.7, prealbumin 21.5. Continue oral supplement. Mild risk.
--- NOTE | 2018-08-04 12:13 | NUR ---
pt refused noon Vital check and blood sugar check
[2018-08-04 12:58] VITALS: BP 109/42
--- NOTE | 2018-08-04 13:07 | NUR ---
Noy from [facility] here to speak with Pt/dtr regarding trilogy, plan to have trilogy to delivered to Pt, closer to dc. CM to update Noy once dc date determined. Following.
[2018-08-04 15:47] VITALS: BP 110/41
--- NOTE | 2018-08-04 18:56 | NUR ---
ASSUMED PT CARE AT 0730, FULL ASSESMENT DONE CHARTED. PT A/O X4, UNHAPPY ABOUT BEING WOKEN UP TODAY. PT STATES SEVERAL TIMES"I JUST WANT TO BE LEFT ALONE". PT HAS REFUSED VITAL CHECKS, BLOOD SUGAR CHECKS, WORKING WITH THERAPY FULLY, TALKING TO NURSES ABOUT HIS CARE, WOUND CARE, TURNING. PT SB/BBB/PVC'S ON THE MONITOR. BP SOFT, PT ASYMPTOMATIC, ALL OTHER VSS. MEDS GIVEN PER MAR. FALL PRECAUTIONS IN PLACE. PT USING URINAL. HAS NOT BEEN OUT OF BED TODAY. EDUCATED ON THE IMPORTANCE OF TURNING, AND GETTING OUT OF BED TO GAIN STRENGTH, PT RESISTANT TO TEACHING. EATING FAIR, WILL DRINK SOME PROTEIN SHAKES. DTR AND AT BEDSIDE TODAY, EDUCATED BY NURSE AND DR ON PLAN.
[2018-08-04 20:00] VITALS: BP 114/44
[2018-08-05] VITALS (7 sets, daily range): BP systolic 101–125; BP diastolic 37–74
--- NOTE | 2018-08-05 01:57 | NUR ---
PT ALERT ORIENTED. UP TO BSC FOR BM. VOIDS CLEAR YELLOW PER URINAL. OXICODONE IR GIVEN FOR PAIN IN R FOOT. TELEMETRY SHOWS SR BBB OCCASIONAL PVC. REFUSING TURNS. PT TEACHING ON THE BENIFITS OF TURNING Q 2 HRS. VANC TROUGH BACK AT 22. PHARMACY ADJUSTED DOSE PER PROTOCAL. O2 AT 3 LITERS NC.
[2018-08-05 09:54] LABS: ABSOLUTE BASOPHILS 0.1 thou/uL (0.0-0.2); ABSOLUTE LYMPHOCYTES 0.3 thou/uL (0.8-5.3); ABSOLUTE MONOCYTES 0.2 thou/uL (0.0-1.2); ABSOLUTE NEUTROPHILS 32.8 thou/uL (1.6-8.1); BASOPHILS 0.4 %; EOSINOPHILS 0.1 %; HEMATOCRIT 28.8 % (42.0-52.0); HEMOGLOBIN 9.4 gm/dL (14.0-18.0); LYMPHOCYTES 0.9 %; MCHC 32.8 g/dL (28.0-37.0); MCV 82.1 fL (80.0-100.0); MONOCYTES 0.6 %; MPV 7.9 fl. (7.2-11.1); NUCLEATED RBCS 0 /100WBC; PLATELET COUNT* 91 thou/uL (150-400); RDW-CV 17.9 % (10.5-14.5); WBC 33.5 thou/uL (4.0-11.0)
--- NOTE | 2018-08-05 12:37 | NUR ---
Noy from [facility] will need to be updated at ia, to arrange delivery of Pt's trilogy to his home [phone]
--- NOTE | 2018-08-05 16:32 | NUR ---
WOUND NURSE: PATIENT SEEN TO ADDRESS LESION ON THE LEFT HEEL. REMAINS 2 X 2.5 CM, CLOSED WITH CERTIFIED HYPERBARIC TECHNOLOGIST PURPLE COLORING AND LOOSE FRIABLE SKIN. PATIENT REPORTS HE UNDERSTANDS NEED TO KEEP HEEL OFF MATTRESS, BUT HE WAS NOT DOING SO. REMOVED AND REAPPLIED DRY DRESSING FOR PROTECTION: ABD UNDER KERLEX ROLL GAUZE AND SECURED WITH TAPE. HEEL ELEVATED OFF MATTRESS USING PILLOW AND REITERATED NEED FOR PATIENT TO FOLLOW THROUGH TO PREVENT FURTHER TISSUE TRAUMA. PATIENT STATED HE UNDERSTOOD.
--- NOTE | 2018-08-05 18:26 | NUR ---
ASSUMED PT CARE AT 0730, FULL ASSESMENT DONE CHARTED. PT A/OX4, WAS SLEEPING THIS AM, STATES HE IS FEELING BETTER TODAY. PT DID HAVE A BM IN THE BED THIS AM, STATES HE WAS UNAWARE THAT HE WENT WHILE SLEEPING. PT UP TO CHAIR, BED BATH GIVEN, PTS DRESSING TO COCCYX CHANGED AT THIS TIME. PT TOLERATED SITTING IN CHAIR APPROX 3 HOURS. PT DID EAT SOME BREAKFAST AND LUNCH BUT NO DINNER. HE IS DRINKING 2-4 ENSURES A DAY. PT DENIES PAIN, DID ALLOW WOUND NURSE TO CHANGE LEFT HEEL DRESSING. PT WANTS TO BE LEFT ALONE MUCH POSSIBLE.PT DID USE FOUL LANGUAGE WHEN IV STARTED BEEPING THIS AFTERNOON AND STATES "I'M GOING TO THROW THIS G D THING OUT THE WINDOW IF YOU DONT SHUT IT UP NOW". PT GIVEN SPACE AND DID CALM DOWN. PTS BP SOFT, WAS A LITTLE DIZZY WHILE SITTING IN CHAIR. PT RESTING IN BED THIS EVENING. FALL PRECAUTIONS IN PLACE. CALL LIGHT IN REACH. WILL CONTINUE TO MONITOR.
--- NOTE | 2018-08-05 20:00 | NUR ---
RECEIVED REPORT AND ASSUMED CARE OF PT, ASSESSMENT COMPLETED. PT GRUFF BUT COOPERATIVE. DOES NOT LIKE TO BE "MESSED" WITH, JUST WANTS TO SLEEP. O2 ON AT 3L/HFC, HOB ELEVATED. TELEMETRY ON SHOWING SR WITH BBB. WILL CONT TO MONITOR AND ASSIST NEEDED.
[2018-08-06 04:00] VITALS: BP 126/82
[2018-08-06 05:07] LABS: ABSOLUTE LYMPHOCYTES 0.2 thou/uL (0.8-5.3); ABSOLUTE MONOCYTES 0.2 thou/uL (0.0-1.2); BASOPHILS 0.2 %; EOSINOPHILS 0.1 %; HEMATOCRIT 27.1 % (42.0-52.0); HEMOGLOBIN 8.6 gm/dL (14.0-18.0); LYMPHOCYTES 0.8 %; MCH 26.2 pg (26.0-34.0); MCHC 31.9 g/dL (28.0-37.0); MCV 82.2 fL (80.0-100.0); MPV 8.1 fl. (7.2-11.1); NUCLEATED RBCS 0 /100WBC; PLATELET COUNT* 95 thou/uL (150-400); POLYS 97.9 %; RDW-CV 18.5 % (10.5-14.5); WBC 22.5 thou/uL (4.0-11.0)
[2018-08-06 05:38] LABS: CALCIUM 8.3 mg/dL (8.5-10.1); POTASSIUM 5.1 mmol/L (3.5-5.1); TOTAL BILIRUBIN 0.6 mg/dL (<0.1-1.0); TOTAL PROTEIN 5.1 g/dL (6.4-8.2)
[2018-08-06 06:26] LABS: ESR (SEDRATE) 19 mm/hr (0-20)
--- NOTE | 2018-08-06 07:41 | NUR ---
AWAKE OCC DURING NIGHT, PT GRUMPY AND UPSET BECAUSE OF BEING AWAKEN FOR CARE. REASSURANCE GIVEN. NO CHANGE IN ASSESSMENT. REFUSES TO BE TURNED IN BED, EDUCATION GIVEN. TELEMETRY CONT TO SHOW SR WITH BBB. HS GOALS OF REST AND SAFETY PARTICALLY ACHIEVED. HOURLY ROUNDING OBSERVED.
[2018-08-06 08:30] VITALS: BP 135/50
--- NOTE | 2018-08-06 11:25 | NUR ---
ASSUMED PT CARE AT 0730, FULL ASSESMENT DONE CHARTED. PT A/O X4, STATES HE IS TIRED, PT C/O THAT "I DONT GET ANY SLEEP DURING THE DAY" PT ENCOURAGED TO GET OUT OF BED TODAY. HE REFUSED THIS AM, STATES "I WILL AFTER 3 THIS AFTERNOON". PTS VSS, SB/BBB ON THE MONITOR, MEDS GIVEN PER MAR. FALL PRECAUTIONS IN PLACE. PT REFUSED TO LET ME LOOK AT WOUND DRESSING ON BUTTOCK, REFUSED TO TURN BUT DID ALLOW ME TO PLACE THE PILLOW UNDER HIS LEG WITH HEEL OFF THE BED.
[2018-08-06 12:17] VITALS: BP 120/54
[2018-08-06 16:03] VITALS: BP 111/63
--- NOTE | 2018-08-06 19:03 | NUR ---
PT REFUSED GETTING UP TO CHAIR THIS AFTERNOON, PT DID ALLOW ME TO TURN HIM TO LEFT SIDE WITH A PILLOW UNDER HIS LEG. PT DID NOT EAT DINNER, REQUESTING BOOST AND ICE CREAM. PT UP TO BSC THIS EVENING FOR BM.
[2018-08-06 20:00] VITALS: BP 102/45
[2018-08-06 23:30] VITALS: BP 105/53
[2018-08-07 04:00] VITALS: BP 121/48
--- NOTE | 2018-08-07 05:20 | NUR ---
ASSUMED PT CARE AT 1930. NURSING ASSESSMENT COMPLETED AT START OF SHIFT. PT VOICED NO CONCERNS THIS SHIFT. SR/SB WITH BBB ON AIRCRAFT LOG CLERK. PT VOICED NO CONCERNS THIS SHIFT. PT EDUCATED ON IMPORTANCE OF Q2H REPOSITIONING. PT VOICED UNDERSTANDING. HOURLY ROUNDING COMPLETED. CALL LIGHT WITHIN REACH.
[2018-08-07 08:00] VITALS: BP 116/48
[2018-08-07 12:34] VITALS: BP 108/46
[2018-08-07 16:50] VITALS: BP 92/40
--- NOTE | 2018-08-07 19:00 | NUR ---
RECEIVED REPORT FROM BREANNE MOSELEY. ASSUMED CARE OF PT AROUND 0730. PT A&O X4. VSS. GRINDING MACHINE OPERATOR PORTABLE IN PLACE TRACING SB WITH BBB WITH NO CHANGES THIS SHIFT. AM ASSESSMENT AND VITALS COMPLETED CHARTED. RIGHT UPPER ARM PICC INTACT. PT HAS DENIED PAIN OR DISCOMFORT THIS SHIFT. PT REFUSED TO ALLOW WOUND TO BUTTOCK/SACRUM TO BE VISUALIZED THIS SHIFT. PT REFUSED SOME TURNS DESPITE EDUCATION ON NEED TO TURN. PT DID ALLOW PILLOW TO BE PLACED UNDER LEFT LEG TO ELEVATE HEEL. PT REFUSED TO WORK WITH THERAPIES THIS SHIFT AND REFUSED TO GET OUT OF BED. PT TOLERATING DIET, APPETITE POOR. PT CONTINUING ON 3L PER NC, TOLERATING. PT CURRENTLY SITTING UP IN BED WATCHING TV. FALL PRECAUTIONS IN PLACE. CALL LIGHT IS WITHIN REACH. HOURLY ROUNDING PERFORMED.
[2018-08-07 20:30] VITALS: BP 123/49
[2018-08-08] VITALS: BP 102/43
[2018-08-08 04:00] VITALS: BP 99/45
[2018-08-08 06:11] LABS: HEMATOCRIT 25.6 % (42.0-52.0); HEMOGLOBIN 8.5 gm/dL (14.0-18.0); MCHC 33.4 g/dL (28.0-37.0); NUCLEATED RBCS 0 /100WBC; PLATELET COUNT* 95 thou/uL (150-400); RBC 3.16 mil/uL (4.50-6.00); RDW-CV 17.8 % (10.5-14.5); WBC 16.6 thou/uL (4.0-11.0)
[2018-08-08 06:29] LABS: ALBUMIN 2.1 g/dL (3.4-5.0); CREATININE 1.3 mg/dL (0.6-1.3); POTASSIUM 5.1 mmol/L (3.5-5.1); TOTAL BILIRUBIN 0.6 mg/dL (<0.1-1.0); TOTAL PROTEIN 5.2 g/dL (6.4-8.2)
--- NOTE | 2018-08-08 08:12 | NUR ---
PT CARE ASSUMED AT 1930. SAT MAINTAINED IN O2. CALL LIGHT WITHIN REACH AND BED IN LOW POSITION. ALERT AND ORIENTED X4. C/O PAIN, MEDICATIOIN GIVEN PER EMAR. HOURLY ROUNDING DONE FOR PT SAFETY.
[2018-08-08 08:19] LABS: ABSOLUTE LYMPHOCYTES 0.3 thou/uL (0.8-5.3); ABSOLUTE MONOCYTES 0.2 thou/uL (0.0-1.2); ABSOLUTE NEUTROPHILS 16.1 thou/uL (1.6-8.1); METAMYELOCYTES 1 %; PLATELET ESTIMATE DECREASED
[2018-08-08 08:20] LABS: ANISOCYTOSIS Occasional
[2018-08-08 12:00] VITALS: BP 90/38
[2018-08-08 16:00] VITALS: BP 97/43
--- NOTE | 2018-08-08 18:00 | NUR ---
ASSUMED PT CARE AT 0700, A&O X4, VSS, O2 AT 3LPM VIA NC, LS DIMINISHED IN ALL LOBES, SUPERVISOR DOPING TRACING SINUS KATHERINE. UP WITH ASSIST X1 FOR STAND/PIVOT TO BEDSIDE COMMODE, INCONT AT TIMES OF B&B, BM THIS SHIFT. DENIES ANY PAIN OR SOA, HEEL FLOATED ON PILLOW, REFUSES BOOT, RIGHT BKA. HOURLY ROUNDING COMPLETED WELL Q 2 TURNS.
[2018-08-09 00:46] VITALS: BP 97/44
[2018-08-09 04:53] VITALS: BP 102/43
--- NOTE | 2018-08-09 05:25 | NUR ---
ASSUMED CARE OF PT AT 1900. PT IS ALERT AND ORIENTED. VSS. PERRLA. NO COMPLAINTS OF PAIN. PT IS ON 2 LITERS O2. PT IS IN SINUS RYTHM ON THE TELEMETRY. PT IS RESTING COMFORTABLY IN BED. RESPIRATIONS ARE EVEN AND NONLABORED. WILL CONTINUE TO MONITOR PT.
[2018-08-09 08:12] VITALS: BP 99/45
[2018-08-09 11:20] LABS: ABSOLUTE LYMPHOCYTES 0.2 thou/uL (0.8-5.3); ABSOLUTE MONOCYTES 0.1 thou/uL (0.0-1.2); ABSOLUTE NEUTROPHILS 11.2 thou/uL (1.6-8.1); BASOPHILS 0.2 %; EOSINOPHILS 0.1 %; HEMATOCRIT 24.6 % (42.0-52.0); HEMOGLOBIN 8.2 gm/dL (14.0-18.0); LYMPHOCYTES 1.6 %; MCH 27.2 pg (26.0-34.0); MCHC 33.4 g/dL (28.0-37.0); MCV 81.4 fL (80.0-100.0); MONOCYTES 1.2 %; MPV 7.9 fl. (7.2-11.1); NUCLEATED RBCS 0 /100WBC; PLATELET COUNT* 91 thou/uL (150-400); POLYS 96.9 %; RBC 3.02 mil/uL (4.50-6.00); RDW-CV 18.4 % (10.5-14.5); WBC 11.6 thou/uL (4.0-11.0)
[2018-08-09 11:30] VITALS: BP 101/39
[2018-08-09 11:34] LABS: ALBUMIN 2.1 g/dL (3.4-5.0); CALCIUM 8.6 mg/dL (8.5-10.1); CREATININE 1.5 mg/dL (0.6-1.3); POTASSIUM 4.9 mmol/L (3.5-5.1); TOTAL BILIRUBIN 0.5 mg/dL (<0.1-1.0)
[2018-08-09 11:35] VITALS: BP 99/45
--- NOTE | 2018-08-09 11:36 | NUR ---
Pt discharging to home today, CM will fax dc orders to [facility] once available. CM updated Noy from [facility] so that she can arrange home trilogy. Family to transport
[2018-08-09] MEDS ORDERED: DIFLUCAN200 MG PO (12:00)
[2018-08-09] MEDS ORDERED: PREDNISONE 10 M10 MG PO (12:08)
[2018-08-09] MEDS ORDERED: LEVAQUIN 750 M750 MG PO (12:12)
[2018-08-09] MEDS ORDERED: HYDREA 500 MG500 M1 PO (12:31)
--- NOTE | 2018-08-09 13:36 | NUR ---
ORDERS RECEIEVED FOR OKAY TO D/C TO HOME THIS SHIFT WITH HH PER - HH SET UP PER CM PRIOR TO D/C- HYDREA CLARIFIED PER ONCOLOGY PRIOR TO D/C WITH SCRIPT CALLED TO PHARMACY- RACING MECHANIC D/C'D ALONG WITH RUE PICC PRIOR TO D/C- PICC NOTED WITH TIP INTACT AT TIME OF D/C, PRESSURE APPLIED AND HELD INDICATED WITH DRESSING APPLIED PRIOR TO D/C- DRESSING TO LLE CHANGED WITH PICTURES OBTAINED AND PLACED ON CHART FOR VIEWING- DRESSING TO COCCYX CHANGED PRIOR TO D/C WITH PIC OBTAINED AND PLACED ON CHART WELL- D/C EDUCATION/TEACHING/NEEDED FOLLOW UP'S COMMUNICATED TO PT AND AT TIME OF D/C WITH ALL QUESTIONS AND CONCERNS ADDRESSED PRIOR TO D/C- BELONGINGS PACKED AND ACCOUNTED FOR PER - PT REFUSSED O2 AT TIME OF D/C, STATES HE WILL PUT ON WHEN HE GETS HOME, HE DON'T NEED IT RIGHT NOW-PT ESCORTED PER TECH VIA W/C WITH BELONGINGS; AT SIDE TO [facility] AT TIME OF D/C- PT REPORTS BOUT OF NAUSEA AT TIME OF D/C, BUT R/T COUGH AND PHLEGM AND DENIES NEED TO MEDICATIONS OR TO STAY AND BE REEVALUATED- TIME OF D/C- 4874
== END 2018-08-09 14:06 | disposition home health service (06) | DRG 177 ==
LOC: M.ERS 14:27 → M.TBA-ER 16:19 → M.ERS 16:19 → M.TBA-ER 18:43 → M.2W 18:43 → M.ICU 18:43 → M.2W 07-29 09:48
PROVIDERS: Family Medicine; Internal Medicine; ADMIT Family Medicine
DX: J15.6 Pneumonia due to other Gram-negative bacteria (principal); G93.41 Metabolic encephalopathy; J96.21 Acute and chronic respiratory failure with hypoxia; I50.31 Acute diastolic (congestive) heart failure; J44.1 Chronic obstructive pulmonary disease with (acute) exacerbation; J44.0 Chronic obstructive pulmonary disease with (acute) lower respiratory infection; D47.1 Chronic myeloproliferative disease; E44.0 Moderate protein-calorie malnutrition; C94.6 Myelodysplastic disease, not elsewhere classified; Z68.1 Body mass index [BMI] 19.9 or less, adult; K21.9 Gastro-esophageal reflux disease without esophagitis; M10.9 Gout, unspecified; F17.210 Nicotine dependence, cigarettes, uncomplicated; I25.10 Atherosclerotic heart disease of native coronary artery without angina pectoris; I73.9 Peripheral vascular disease, unspecified; I48.91 Unspecified atrial fibrillation; E78.5 Hyperlipidemia, unspecified; R73.9 Hyperglycemia, unspecified; T38.0X5A Adverse effect of glucocorticoids and synthetic analogues, initial encounter; I11.0 Hypertensive heart disease with heart failure; D69.6 Thrombocytopenia, unspecified; D64.9 Anemia, unspecified; R16.1 Splenomegaly, not elsewhere classified; Z82.49 Family history of ischemic heart disease and other diseases of the circulatory system; Z99.81 Dependence on supplemental oxygen; I25.2 Old myocardial infarction; Z95.5 Presence of coronary angioplasty implant and graft; Z95.1 Presence of aortocoronary bypass graft; Z79.899 Other long term (current) drug therapy; Z88.8 Allergy status to other drugs, medicaments and biological substances; Z83.6 Family history of other diseases of the respiratory system; Z89.511 Acquired absence of right leg below knee; Y92.89 Other specified places as the place of occurrence of the external cause

== ENCOUNTER 2018-09-13 14:37 | Emergency (ER) | payer OTHER ==
[~2018-09-13] VITALS: Ht 182.9 cm; Wt 52.2 kg
[~2018-09-13 14:37] MED LIST changes: +DIFLUCAN200 MG PO; +HYDREA 500 MG500 M1 PO
[2018-09-13] MEDS ORDERED: KEFLEX500 M1 PO (16:09)
[2018-09-13 16:24] VITALS: BP 106/51
== END 2018-09-13 16:25 | disposition home or self-care (01) ==
LOC: M.ERS 14:37
DX: L03.116 Cellulitis of left lower limb (principal); R60.0 Localized edema; F17.210 Nicotine dependence, cigarettes, uncomplicated; M79.89 Other specified soft tissue disorders; Z88.8 Allergy status to other drugs, medicaments and biological substances

== ENCOUNTER → 2018-10-12 | Outpatient (CLI) | payer OTHER ==
[~2018-10-12] MED LIST changes: +KEFLEX500 M1 PO
== END ==
LOC: M.WC 08:57
DX: I70.248 Atherosclerosis of native arteries of left leg with ulceration of other part of lower leg (principal); L97.821 Non-pressure chronic ulcer of other part of left lower leg limited to breakdown of skin; L89.623 Pressure ulcer of left heel, stage 3; I25.2 Old myocardial infarction; I10 Essential (primary) hypertension; I25.10 Atherosclerotic heart disease of native coronary artery without angina pectoris; I48.91 Unspecified atrial fibrillation; J44.9 Chronic obstructive pulmonary disease, unspecified; K21.9 Gastro-esophageal reflux disease without esophagitis; M10.9 Gout, unspecified; F17.200 Nicotine dependence, unspecified, uncomplicated; Z86.718 Personal history of other venous thrombosis and embolism; Z85.6 Personal history of leukemia; Z95.5 Presence of coronary angioplasty implant and graft; Z89.511 Acquired absence of right leg below knee

== ENCOUNTER 2019-11-24 21:35 | Inpatient (IN) | payer OTHER ==
[~2019-11-24] VITALS: Ht 182.9 cm; Wt 52.6 kg
[2019-11-24 21:50] VITALS: BP 101/35
[2019-11-24 22:11] LABS: HEMATOCRIT 27.2 % (42.0-52.0); HEMOGLOBIN 9.3 gm/dL (14.0-18.0); MCH 31.2 pg (26.0-34.0); MCHC 34.1 g/dL (28.0-37.0); MCV 91.6 fL (80.0-100.0); NUCLEATED RBCS 0 /100WBC; PLATELET COUNT* 157 thou/uL (150-400); RBC 2.97 mil/uL (4.50-6.00); RDW-CV 16.9 % (10.5-14.5); WBC 25.7 thou/uL (4.0-11.0)
[2019-11-24 22:15] LABS: CALCIUM 8.2 mg/dL (8.5-10.1); CREATININE 2.8 mg/dL (0.6-1.3); POTASSIUM 3.6 mmol/L (3.5-5.1)
[2019-11-24 22:18] LABS: INR 1.4; PROTIME 14.7 Seconds (9.20-11.50)
[2019-11-24] MEDS ORDERED: HYDREA 500 MG500 M1 PO (22:19)
[2019-11-24] MEDS ORDERED: SPIRIVA INH (22:19)
[2019-11-24] MEDS ORDERED: [UNRECOGNIZED DRUG - CODE] (22:20)
[2019-11-24 22:21] LABS: INFLUENZA A ANTIGEN Negative (Negative); INFLUENZA B ANTIGEN Negative (Negative)
[2019-11-24 22:26] LABS: ALBUMIN 3.1 g/dL (3.4-5.0); MAGNESIUM 2.1 mg/dL (1.8-2.4); TOTAL BILIRUBIN 0.8 mg/dL (<0.1-1.0); TOTAL PROTEIN 6.3 g/dL (6.4-8.2)
[2019-11-25 00:27] LABS: ABSOLUTE LYMPHOCYTES 0.3 thou/uL (0.8-5.3); ABSOLUTE MONOCYTES 0.3 thou/uL (0.0-1.2); ABSOLUTE NEUTROPHILS 25.2 thou/uL (1.6-8.1); LARGE PLATELETS FEW; PLATELET ESTIMATE ADEQUATE; TOXIC GRANULATION 2+
[2019-11-25 01:45] VITALS: BP 108/50
[2019-11-25 02:00] VITALS: BP 101/45
[2019-11-25] MEDS ORDERED: GABAPENTIN800 M1 PO (02:06)
[2019-11-25] MEDS ORDERED: IRBESARTAN-HCT1 EAC1 PO (02:11)
[2019-11-25 07:30] VITALS: BP 104/38
[2019-11-25 12:00] VITALS: BP 106/42
--- NOTE | 2019-11-25 13:54 | EKG ---
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: IVAN : 1935 Requested By: Velvet Bates Order Number: [id number] MD: Migel Alvarado Measurements Intervals [place] Rate: 88 P: 79 TX: 127 QRS: -79 QRSD: 145 T: 77 QT: 391 QTc: 473 Interpretive Statements Sinus rhythm RBBB and LAFB Compared to ECG 07/26/2018 15:31:52 Left anterior fascicular block now present Short TX interval no longer present ST (T wave) deviation no longer present Electronically Signed On 11-25-2019 13:53:46 CDT by Migel Alvarado [email or web address] <ELECTRONICALLY SIGNED> By: Migel Alvarado MD, FACC 11/25/19 1353 01 01 Migel Alvarado MD, FACC /EPI
--- NOTE | 2019-11-25 15:25 | NUR ---
Pt asleep when CM went to assess, CM spoke with Pt's via phone. Pt is primarily wc bound at home, Pt has a prothesis but doesn't uses it. Independent with mobility and transfers. Independent with ADLs, assists as needed. Hx of [facility] HH. Hx of skilled at [facility]. Per , Pt was on hospice last year, but ended up coming off service, does not recall with which hospice Pt was on. Pt has a hx of home o2 and trilogy, Pt has since sent that back. Plan is home at de, CM to discuss HH at de. Following.
--- NOTE | 2019-11-25 16:50 | 2DMMODE ---
[place] [address] 2 D/M-MODE ECHOCARDIOGRAM Name: NAIKGERMAN MITESH Room: [address] IN .R.#: [id number] Admission: 11/25/19 Attend Phys: Pat Warren, Discharge: Date of : 35 Date of Service: 11/25/19 1649 Report #: [id number] THIS REPORT FOR: cc: Alexander Frazier MD, Bruce D. MD Holkins,Migel Anderson MD [facility] ~ APPROVED REPORT Study performed: 11/25/2019 15:59:58 EXAM: Comprehensive 2D, Doppler, and color-flow Echocardiogram Patient Location: Bedside BSA: 1.69 HR: 68 bpm BP: 106/42 mmHg Other Information Study Quality: Fair Technically limited study due to poor endocardial definition, inability to position patient. Indications Congestive Heart Failure Dyspnea 2D Dimensions IVSd: 21.60 (7-11mm) LVOT Diam: 16.18 (18-24mm) LVDd: 36.09 mm PWd: 12.28 (7-11mm) Ascending Ao: 31.99 (22-36mm) LVDs: 35.86 (25-40mm) Aortic Root: 28.13 mm Volumes Left Atrial Volume (Systole) LA ESV Index: 16.80 mL/m2 Aortic Valve AoV Peak Ilia.: 0.78 m/s AO Peak Gr.: 2.45 mmHg LVOT Max P.38 mmHg AO Mean Gr.: 1.43 mmHg LVOT Mean P.76 mmHg LVOT Max V: 0.92 m/s AO V2 VTI: 13.20 cm LVOT Mean V: 0.61 m/s KERI (VTI): 3.00 cm2 LVOT V1 VTI: 19.26 [place] [address] 2 D/M-MODE ECHOCARDIOGRAM Name: GERMAN NAIK Room: [address] IN ..#: [id number] Admission: 11/25/19 Attend Phys: Pat Warren, Discharge: Date of : 35 Date of Service: 11/25/19 1649 Report #: [id number] Mitral Valve E/A Ratio: 1.33 MV Decel. Time: 182.33 ms MV E Max Ilia.: 0.76 m/s MV PHT: 52.88 ms MVA (PHT): 4.16 cm2 TDI E/Lateral E': 5.85 E/Medial E': 9.50 Medial E' Ilia.: 0.08 m/s Lateral E' Ilia.: 0.13 m/s Pulmonary Valve PV Peak Ilia.: 1.03 m/s PV Peak Gr.: 4.22 mmHg Tricuspid Valve RAP Estimate: 5.00 mmHg TR Peak Gr.: 48.65 mmHg RVSP: 53.65 mmHg PA Pressure: 53.65 mmHg Left Ventricle The left ventricle is normal size. Inferobasilar hypokinesis is noted Mild concentric left ventricular hypertrophy. Left ventricular systolic function is normal. LVEF is 55-60%. Right Ventricle The right ventricle is normal size. The right ventricular systolic function is normal. Atria The left atrium size is normal. The right atrium size is normal. Aortic Valve Mild aortic valve sclerosis. No aortic regurgitation is present. There is no aortic valvular stenosis. Mitral Valve Moderate mitral annular calcification. There is no mitral valve regurgitation noted. No evidence of mitral valve stenosis. Tricuspid Valve The tricuspid valve is normal in structure. [place] [address] 2 D/M-MODE ECHOCARDIOGRAM Name: GERMAN NAIK Room: [address]#: [id number] Admission: 11/25/19 Attend Phys: Pat Warren, Discharge: Date of : 35 Date of Service: 11/25/19 1649 Report #: [id number] Pulmonic Valve The pulmonary valve is normal in structure. There is no pulmonic valvular regurgitation. Great Vessels The aortic root is normal in size. IVC is normal in size and collapses >50% with inspiration. Pericardium There is no pericardial effusion. <Conclusion> The left ventricle is normal size. Mild concentric left ventricular hypertrophy. Left ventricular systolic function is normal. LVEF is 55-60%. The right ventricle is normal size. The left atrium size is normal. Mild aortic valve sclerosis. No aortic regurgitation is present. There is no aortic valvular stenosis. Moderate mitral annular calcification. There is no mitral valve regurgitation noted. No evidence of mitral valve stenosis. The tricuspid valve is normal in structure. IVC is normal in size and collapses >50% with inspiration. There is no pericardial effusion. Inferobasilar hypokinesis is noted <ELECTRONICALLY SIGNED> By: Migel Alvarado MD, FACC 11/25/191648 48 48 Migel Alvarado MD, FACC /INF
--- NOTE | 2019-11-25 19:42 | NUR ---
pt has been alert and responds appropriately to instructions. placed in enhanced isolation because covid pcr results will not be available until next week. renal ultrasound has been completed. antibiotic therapy and iv fluids have been initiated.
[2019-11-26 04:00] VITALS: BP 100/38
--- NOTE | 2019-11-26 04:12 | NUR ---
PT HAS BEEN A+OX4 BUT SLEEPY THIS SHIFT. AWAKENS EASILY. PT VOIDED 550 DARK TEA COLORED URINE PER URINAL. POST VOID RESIDUAL 89 ON BLADDER SCAN, POSITIVE BLOOD CULTURE REPORTED TO DR SANON. ORDERS RECEIVED. BLANCHABLE ERUTHEMA NOTED ON SACCRALCOCCYX AREA. EDUCATION PT ON Q2 TURN. SR BBB PVC ON MONITOR. CALL LIGHT IN REACH. HOURLY ROUNDING FOR SAFETY.
[2019-11-26 05:21] LABS: URINE BILIRUBIN NEGATIVE (Negative); URINE BLOOD NEGATIVE (Negative); URINE CLARITY CLEAR; URINE COLOR YELLOW; URINE GLUCOSE-RANDOM NEGATIVE (Negative); URINE KETONES NEGATIVE (Negative); URINE LEUKOCYTES-REFLEX NEGATIVE (Negative); URINE NITRITE-REFLEX NEGATIVE (Negative); URINE PROTEIN NEGATIVE (Negative); URINE SPECIFIC GRAVITY >= 1.030 (1.005-1.030); URINE UROBILINOGEN 0.2 E.U./dl (0.2-1.0)
[2019-11-26 05:32] LABS: ABSOLUTE LYMPHOCYTES 0.1 thou/uL (0.8-5.3); ABSOLUTE NEUTROPHILS 21.1 thou/uL (1.6-8.1); BASOPHILS 0.2 %; HEMATOCRIT 27.5 % (42.0-52.0); HEMOGLOBIN 9.4 gm/dL (14.0-18.0); LYMPHOCYTES 0.7 %; MCH 31.2 pg (26.0-34.0); MCV 91.9 fL (80.0-100.0); MONOCYTES 0.2 %; MPV 8.6 fl. (7.2-11.1); NUCLEATED RBCS 0 /100WBC; PLATELET COUNT* 179 thou/uL (150-400); POLYS 98.9 %; RDW-CV 17.5 % (10.5-14.5); WBC 21.3 thou/uL (4.0-11.0)
[2019-11-26 05:39] LABS: ALBUMIN 2.6 g/dL (3.4-5.0); CALCIUM 8.1 mg/dL (8.5-10.1); CREATININE 2.3 mg/dL (0.6-1.3); POTASSIUM 3.7 mmol/L (3.5-5.1); TOTAL BILIRUBIN 0.6 mg/dL (<0.1-1.0)
[2019-11-26 08:00] VITALS: BP 100/37
--- NOTE | 2019-11-26 10:27 | NUR ---
RECIEVED REPORT AROUND 0715. VS AND ASSESSMENT CHARTED. IV INTACT LEFT WRIST. NS RUNNING. MEDICATION PER APR. MEDS GIVEN THIS AM. PT LYING IN BED. HEART MONITOR ATTACHED AT SR WITH BBB. COVID RESULTS CAME BACK NEGATIVE. DR NOTIFIED. CALL [facility] WITHIN REACH. WILL CONTINUE TO MONITOR.
[2019-11-26 12:00] VITALS: BP 92/40
[2019-11-26 16:00] VITALS: BP 90/53
--- NOTE | 2019-11-26 18:05 | NUR ---
IV INFILTRATED IN LEFT WRIST. IV TAKEN OUT. NEW IV PUT IN LEFT FOREARM. IV FLUIDS RUNNING. HEART MONITOR ATTACHED AT SR WITH BBB. PT LYING IN BED. SON CALLED THIS SHIFT. UPDATED ON PT. NO REPORTS OF PAIN THIS SHIFT. HOURLY ROUNDING PERFORMED. MEDICATION PER APR. CALL LIGHT WITHIN REACH. WILL CONTINUE TO MONITOR.
[2019-11-26 20:00] VITALS: BP 106/41
[2019-11-27] VITALS: BP 107/48
[2019-11-27 05:07] LABS: CALCIUM 7.9 mg/dL (8.5-10.1); CREATININE 2.1 mg/dL (0.6-1.3); POTASSIUM 3.7 mmol/L (3.5-5.1)
[2019-11-27 08:00] VITALS: BP 102/42
--- NOTE | 2019-11-27 10:04 | NUR ---
RECIEVED REPORT AROUND 0715. ASSUMED CARE. PT LYING IN BED. VS AND ASSESSMENT CHARTED. IV INTACT LEFT FOREARM. FLUIDS RUNNING. HEART MONITOR ATTACHED AT SR WITH BBB AND PVC'S. MEDS GIVEN THIS AM. MEDICATION PER APR. NO REPORTS OF PAIN. CALL LIGHT WITHIN REACH. WILL CONTINUE TO MONITOR.
[2019-11-27 12:00] VITALS: BP 109/50
[2019-11-27 16:00] VITALS: BP 121/61
--- NOTE | 2019-11-27 16:55 | NUR ---
SON CALLED. UPDATED ON PT. PT POSSIBLE DISCHARGE TOMORROW. IV INTACT WITH FLUIDS RUNNING. LEFT FOREARM. HEART MONITOR ATTACHED AT SR WITH BBB. PT LYING IN BED. NO COMPLAINTS OF PAIN THIS SHIFT. HOURLY ROUNDING PERFORMED. MEDICATION PER APR. CALL LIGHT WITHIN REACH. WILL CONTINUE TO MONITOR.
[2019-11-27 19:50] VITALS: BP 120/56
[2019-11-28] VITALS: BP 112/49
[2019-11-28 04:00] VITALS: BP 148/55
[2019-11-28 04:57] LABS: HEMATOCRIT 27.6 % (42.0-52.0); HEMOGLOBIN 9.4 gm/dL (14.0-18.0); MCH 31.1 pg (26.0-34.0); MCHC 33.9 g/dL (28.0-37.0); MCV 91.7 fL (80.0-100.0); MPV 8.6 fl. (7.2-11.1); RBC 3.01 mil/uL (4.50-6.00); RDW-CV 17.4 % (10.5-14.5); WBC 19.4 thou/uL (4.0-11.0)
[2019-11-28 05:29] LABS: ALBUMIN 2.4 g/dL (3.4-5.0); CALCIUM 8.1 mg/dL (8.5-10.1); CREATININE 1.8 mg/dL (0.6-1.3); MAGNESIUM 2.2 mg/dL (1.8-2.4); PHOSPHORUS* 2.5 mg/dL (2.5-4.9); POTASSIUM 3.9 mmol/L (3.5-5.1); TOTAL BILIRUBIN 0.3 mg/dL (<0.1-1.0); TOTAL PROTEIN 5.3 g/dL (6.4-8.2)
--- NOTE | 2019-11-28 07:45 | NUR ---
PT CARE ASSUMED AT 1930. PT IS AGITATED AND IRRITABLE. [facility] FOR [facility]ES[facility]. PT EDUCATED, NEEDS REINFORCEMENT. C/O PAIN, MEDICATION GIVEN PER EMAR. CALL LIGHT WITHIN REACH AND BED IN LOW POSITION. PT HAS PRODUCTIVE COUGH. HOURLY ROUNDING DONE FOR PT SAFETY.
[2019-11-28 08:00] VITALS: BP 129/50
[2019-11-28 12:37] VITALS: BP 130/53
--- NOTE | 2019-11-28 13:43 | NUR ---
CM INFORMED DURING PRIME ROUNDING OF BARRIERS TO D/C INCLUDING THAT PT REMAINS ON I.V. ABT'S, OXYGEN, AND PENDING C.T. PT NOW MED SURG STATUS. PT MAY NEED HH AT D/C, AND HAD BEEN ON-SERVICE WITH [facility] IN THE PAST. CM WILL REMAIN AVAILABLE TO ASSIST WITH D/C PLANNING.
[2019-11-28 20:00] VITALS: BP 136/77
[2019-11-29 04:31] VITALS: BP 145/60
[2019-11-29 05:24] LABS: HEMATOCRIT 30.2 % (42.0-52.0); HEMOGLOBIN 10.2 gm/dL (14.0-18.0); MCH 30.7 pg (26.0-34.0); MCHC 33.7 g/dL (28.0-37.0); MCV 91.2 fL (80.0-100.0); MPV 7.7 fl. (7.2-11.1); NUCLEATED RBCS 0 /100WBC; PLATELET COUNT* 284 thou/uL (150-400); RBC 3.31 mil/uL (4.50-6.00); RDW-CV 17.5 % (10.5-14.5); WBC 19.8 thou/uL (4.0-11.0)
[2019-11-29 05:49] LABS: ABSOLUTE EOSINOPHILS 0.6 thou/uL (0.0-0.7); ABSOLUTE LYMPHOCYTES 0.2 thou/uL (0.8-5.3); ANISOCYTOSIS 1+; OVALOCYTES 1+; PLATELET ESTIMATE ADEQUATE; POIKILOCYTOSIS 1+
[2019-11-29 05:52] LABS: ALBUMIN 2.6 g/dL (3.4-5.0); CALCIUM 8.5 mg/dL (8.5-10.1); CREATININE 1.5 mg/dL (0.6-1.3); MAGNESIUM 2.3 mg/dL (1.8-2.4); POTASSIUM 4.8 mmol/L (3.5-5.1); TOTAL BILIRUBIN 0.3 mg/dL (<0.1-1.0); TOTAL PROTEIN 5.9 g/dL (6.4-8.2)
[2019-11-29 07:30] VITALS: BP 94/68
--- NOTE | 2019-11-29 07:32 | NUR ---
PT CARE ASSUMED AT 1930. SOB WITH EXERTION. C/O PAIN, MEDICATION GIVEN PER EMAR. WAFFLE CUSHION PROVIDED TO THE PT. CALL LIGHT WITHIN REACH AND BED IN LOW POSITION. HOURLY ROUNDING DONE FOR PT
[2019-11-29] MEDS ORDERED: PREDNISONE 10 M10 MG PO (08:32)
[2019-11-29] MEDS ORDERED: LEVOFLOXACIN500 MG PO (08:32)
[2019-11-29] MEDS ORDERED: IPRAT-ALBUT 0.5-3 ML INH (08:32)
[2019-11-29 11:06] VITALS: BP 94/68
--- NOTE | 2019-11-29 11:52 | NUR ---
CM SPOKE TO THE PT TO DISCUSS DISCHARGE PLANNING AND HIS D/C HOEM TODAY WITH SELF-CARE. PT INFORMED R.T. THAT HE DID NOT HAVE TRANSPORTATION HOME. HOWEVER CM SPOKE TO THE PT'S SPOUSE AND SHE INFORMS THAT SHE WAS 'ON MY WAY TO THE HOSPITAL AND WILL BRING HIS W/C'. PT INFOMED PHYSICIAN THE HE 'DID NOT WANT HH'. CM TO INFORM NURSING OF PT'S TRANSPORTATION. CM WILL REMAIN AVAILABLE TO ASSIST AND FOLLOW NEEDED.
[2019-11-29] MEDS ORDERED: COMBIVENT INH (19:05)
--- NOTE | 2019-11-29 23:18 | CON ---
[facility] [address] [place] [address] CONSULTATION Name: HEENAGERMAN SAGASTUME Room: [address] IN M.R.#: [id number] Admission: 11/25/19 Attend Phys: Pat Warren MD Discharge: 11/29/19 Date of : 35 Report #: [id number] THIS REPORT FOR: //name// cc: Alexander Frazier MD, Bruce D. MD ~ THIS REPORT FOR: //name// CC: Alexander Warren DATE OF SERVICE: 11/25/2019 REQUESTING PHYSICIAN: Consult has been requested by Dr. Soto. INDICATION FOR CONSULTATION: COPD exacerbation. HISTORY OF PRESENT ILLNESS: An 84-year-old gentleman. Past medical history includes a history of COPD. The patient is an active smoker. He has used oxygen in the past at home per the records. The patient, however, is now telling me that he currently does not use oxygen at home. The patient's baseline creatinine from last year is 1.0. He has a remote history of CABG. He is on anticoagulation at home. The patient is now admitted yesterday night. Per the records, the patient was short of breath and was wheezing, which is the reason that he was admitted. Family also reported that he was febrile and had low O2 saturations. The patient is reported to have also been diaphoretic. The patient, however, now denies this and says he is not short of breath at all. He is on 2 liters nasal cannula and saturating in the mid 90s. He reports that at this time, he does not have any complaints. He answered to the negative for 12 questions for review of systems asked. The patient says that he does not know why he is here, but he answers all the orientation questions correctly. It has been previous concern that he has had dysphagia. When I asked him now, he says he has no dysphagia. PAST MEDICAL HISTORY: COPD is mentioned in the records of use of oxygen at home. The patient, however, says he does not use oxygen currently. Coronary artery disease, CABG, paroxysmal atrial fibrillation, has been on anticoagulation, carotid endarterectomy, dysphagia, bladder/colon fissure, hypertension, gastroesophageal reflux disease, gout, peripheral vascular disease, fem-pop bypass, right BKA, CML, back surgery. The patient's last available echocardiogram was just performed and shows a left ventricular ejection fraction of 55% to 60% with a pulmonary artery systolic elevated to 54. His echocardiogram from last year shows a pulmonary artery systolic of 41. SOCIAL HISTORY: Has an extensive history of smoking[place] [address] CONSULTATION Name: GERMAN NAIK Room: [address] IN M.R.#: [id number] Admission: 11/25/19 Attend Phys: Pat Warren MD Discharge: 11/29/19 Date of : 35 Report #: [id number] is smoking between 1-2 packs a day, still. No known history of heavy alcohol use or illegal drug use. ALLERGIES: AMBIEN. FAMILY HISTORY: There is no pertinent family history. PHYSICAL EXAMINATION: GENERAL: He is alert, awake and oriented. He is denying all complaints as above. VITAL SIGNS: Has a pulse of 68 and a blood pressure of 106/42. In a 2 liters nasal cannula, he is saturating 94%. His initial O2 saturation recorded at 85% on admission, temperature is 37.1. HEENT: Head is normocephalic and atraumatic. NECK: Does not show raised JVP, asymmetry, mass or lymph nodes. CHEST: Symmetrical expansion on inspection and palpation. On auscultation, breath sounds are equal, decreased, expirations prolonged. No added sounds. HEART: Regular, no murmur. ABDOMEN: Soft and nontender. EXTREMITIES: Lower extremities show no edema, no calf tenderness. SKIN: Dry and intact. NEUROLOGICAL: Moves all extremities bilaterally equally and spontaneously with no focal deficit identified. LABORATORY DATA: The patient's chest x-ray is reviewed and compared with chest x-ray done yesterday is only a small infiltrate at the right lung base yesterday. There is worsening infiltrates and atelectasis today with the large opacity in the right middle lobe. There is also developing infiltrate in the left mid zone. COVID-19 antigen is negative. PCR is pending. CBC shows significant leukocytosis. Hemoglobin is 9.3, which is not a significant change compared with his previous hemoglobins. He is in acute renal failure though with a creatinine of 2.8. ASSESSMENT AND PLAN: 1. Acute respiratory insufficiency. Evaluation is difficult because the patient is denying all complaints and answers to the negative for all questions I asked him. Regardless based on the review of the patient's records, it appears likely to me that the patient has a chronic pulmonary obstructive disease exacerbation and that he is dehydrated with acute renal failure. Further I have suspicion that he has been aspirating, a urinary tract obstruction needs to be ruled out as well. 2. Chronic obstructive pulmonary disease exacerbation. I will go ahead and give him 2 doses of Solu-Medrol. Reassess tomorrow regarding whether more steroids are indicated. The patient currently is not in a negative pressure room and is being evaluated for COVID and therefore is on an albuterol inhaler. If his COVID-19 PCR is negative, then in that case, [place] [address] CONSULTATION Name: GERMAN NAIK MITESH Room: [address] IN ..#: [id number] Admission: 11/25/19 Attend Phys: Pat Warren MD Discharge: 11/29/19 Date of : 35 Report #: [id number] nebulized bronchodilators. Also in case his condition deteriorates, I would recommend in that case switching him over to nebulizers. Regardless, in that case transferring him to a negative pressure room. 3. Pulmonary infiltrates/dysphagia. He has a previous history of dysphagia as above. Denies all complaints. Comparing the x-ray today and yesterday, I have concern he may be aspirating. He already received a dose of Zosyn in the ER. I continued with the same. Considering this history, more cultures and serologies are also ordered. 4. Atelectasis. The patient is able to perform incentive Spirometry. We will suggest the same. Mucomyst nebulizer is not an option at this time due to obvious reasons. 5. Rule out COVID-19. He has a PCR pending. See further discussion above. He is reported to have had a fever at home. 6. Acute renal failure. Renal ultrasound and bladder scanning pending. Nephrology Service is on the case. I agree with administration of IV fluids. 7. Abnormal lung perfusion scan. There is note that the patient is on Eliquis at home. He has a history of paroxysmal atrial fibrillation. His D-dimer is significantly elevated. If the patient in fact is taking Eliquis as prescribed, it will be unlikely that he has a DVT or PE and findings on his V/Q scan may be secondary to infiltrates as well as COPD; however, I am not certain at this point if the patient in fact is taking Eliquis as he describes. Regardless, he is on Eliquis now, I would like to do venous Dopplers. In case he has a DVT, we will consider increasing the Eliquis dose obviously is in renal failure and therefore, I will not perform a CTA chest. Rise in the pulmonary artery systolic pressure 41 previously to 53 now in the absence of fluid overload on exam is noted. 8. Leukocytosis/anemia. Follow hemoglobin is not significantly different compared with his previous baseline. Thank you for this consultation. <ELECTRONICALLY SIGNED> By: Claudio Pizarro MD 11/29/19 2318 [id number] Pizarro MD /nt
--- NOTE | 2019-11-30 09:54 | CON ---
[address] [address] CONSULTATION Name: HEENAGERMAN SAGASTUME Room: [address] IN M.R.#: [id number] Admission: 11/25/19 Attend Phys: Pat Warren MD Discharge: 11/29/19 Date of : 35 Report #: [id number] THIS REPORT FOR: //name// cc: Alexander Frazier MD, Bruce D. MD ~ THIS REPORT FOR: //name// CC: Alexander Warren DATE OF SERVICE: 11/26/2019 NEPHROLOGY CONSULTATION CONSULTING PHYSICIAN: Wade Soto MD REASON FOR ADMISSION: COPD exacerbation and shortness of breath. REASON FOR NEPHROLOGY CONSULTATION: Acute kidney injury on possible chronic kidney disease, stage 3. HISTORY OF PRESENT ILLNESS: This is an 84-year-old male with past medical history of COPD and active smoker, who presented with shortness of breath and his oxygen saturation was low. He is being treated for COPD exacerbation. His creatinine was found to be 2.8. His irbesartan/hydrochlorothiazide was held and he was given IV fluids and creatinine is down to 2.3 today. Creatinine back in 07/2018 was 1.5, but prior to that has been in 1-1.3 range. He is feeling okay right now. He is worried about his pressure sores on his back. One set of blood culture bottles grew gram-positive cocci. He also has a left pneumonia, which is being treated for and V/Q scan showed intermediate probability for PE. ALLERGIES: ZOLPIDEM. REVIEW OF SYSTEMS: As mentioned in history of present illness, otherwise 10-point review of systems done, negative. HOME MEDICATIONS: Include tamsulosin, duloxetine, hydroxyurea, allopurinol, atorvastatin, apixaban, tiotropium, gabapentin, irbesartan/hydrochlorothiazide. FAMILY HISTORY: Noncontributory in this 84-year-old man. SOCIAL HISTORY: Smokes every day 2 packs. Does not use recreational drugs and alcohol occasionally on special occasions. PAST MEDICAL AND SURGICAL HISTORY: Includes [place], stent in 1990; right carotid endarterectomy; CABG x 3; cystoscopy; abdominal [place] [address] CONSULTATION Name: HEENAGERMAN MITESH Room: [address]#: [id number] Admission: 11/25/19 Attend Phys: Pat Warren MD Discharge: 11/29/19 Date of : 35 Report #: [id number] 06/2006; bladder and colon fissure; hypertension; GERD; gout; fem-pop bypass in 2014; COPD; right BKA; CML; AFib with RVR; CAD; PVD; PAD; back surgery. PHYSICAL EXAMINATION: VITAL SIGNS: Blood pressure is 100/38, respiratory rate is 16, pulse rate 63, temperature 36.2, and pulse ox 94% on 2 liters of oxygen by nasal cannula. GENERAL: He is awake, alert, oriented x 3. HEAD AND EYES: Atraumatic and normocephalic. Conjunctivae normal. EARS, NOSE, AND THROAT: Normal ears and nose. Mucous membranes seem to be moist. NECK: No JVD. SKIN: Seems to be warm and dry. CHEST: Seems to be clear to auscultation posteriorly. CARDIOVASCULAR: S1, S2 normal. No murmurs noted. ABDOMEN: Soft, nondistended, nontender. Bowel sounds are present. EXTREMITIES: Lower extremities, there is no lower extremity edema and right BKA. NEUROLOGIC: Grossly intact. PSYCHIATRIC: Mood and affect seems to be normal. LABORATORY DATA: WBC 21.3, hemoglobin is 9.4, platelet count is 179. Sodium was 140 and creatinine was 2.3, which is better from 2.8 and other labs are reviewed. IMAGING: Renal ultrasound, chest x-ray and V/Q scan reports were reviewed. ASSESSMENT: 1. Acute kidney injury on likely chronic kidney disease stage 3A. Baseline creatinine likely between 1-1.3 and he presented with a creatinine of 2.8 in the presence of volume depletion and irbesartan/hydrochlorothiazide use. Irbesartan/hydrochlorothiazide has been discontinued. Creatinine is getting better with IV fluids. He also has possibility of bacteremia with Gram-positive cocci growing in one set of blood cultures in his blood. His UA was absolutely normal. His renal ultrasound showed bilateral cysts, but otherwise normal. No hydronephrosis. 2. History of mildly elevated troponin. We will defer to primary team. 3. Chronic obstructive pulmonary disease exacerbation. Primary team is treating him. 4. Elevated D-dimer and intermediate probability V/Q scan. Pulmonology is following him. 5. Hypertension. Blood pressure is running a little towards the lower side, irbesartan/hydrochlorothiazide on hold. 6. Left-sided pneumonia. Primary team is treating him for that. He also has leukocytosis. 7. Chronic myelogenous leukemia, myelodysplasia. [address] [address] CONSULTATION Name: GERMAN NAIK Room: [address] IN M.R.#: [id number] Admission: 11/25/19 Attend Phys: Pat Warren MD Discharge: 11/29/19 Date of : 35 Report #: [id number] PLAN: 1. With IV fluids, his creatinine is already getting better 2.3 today from 2.8 yesterday. 2. Continue to keep irbesartan/hydrochlorothiazide on hold and do not use any other nephrotoxic agents. Try to avoid hypotension. 3. Treatment for bacteremia as per primary team. Adjust antibiotics to his kidney function. 4. IV fluids can be stopped once he is eating and drinking well. Otherwise, continuing them. Otherwise, nothing else to add from nephrology standpoint. If his creatinine does not normalize, he can follow up with us in our office in 3-4 weeks after discharge and I will be signing off now, please call with any questions. Discussed with the patient. <ELECTRONICALLY SIGNED> By: Minal Kim MD 11/30/19 0954 [id number] Kim MD /nt
== END 2019-11-29 12:27 | disposition home or self-care (01) | DRG 177 ==
LOC: M.ERS 21:35 → M.2W 11-25 00:23 → M.TBA-ER 11-25 00:23 → M.2W 11-25 01:59
PROVIDERS: Emergency Medicine; Family Medicine; Internal Medicine; Internal Medicine Critical Care Medicine; ADMIT Internal Medicine; ATTEND Internal Medicine
DX: J15.6 Pneumonia due to other Gram-negative bacteria (principal); J96.21 Acute and chronic respiratory failure with hypoxia; I21.A1 Myocardial infarction type 2; I26.99 Other pulmonary embolism without acute cor pulmonale; N17.9 Acute kidney failure, unspecified; I48.20 Chronic atrial fibrillation, unspecified; C92.10 Chronic myeloid leukemia, BCR/ABL-positive, not having achieved remission; F41.9 Anxiety disorder, unspecified; F32.9 Major depressive disorder, single episode, unspecified; F17.210 Nicotine dependence, cigarettes, uncomplicated; M10.9 Gout, unspecified; K21.9 Gastro-esophageal reflux disease without esophagitis; E86.0 Dehydration; I48.0 Paroxysmal atrial fibrillation; D64.9 Anemia, unspecified; J43.9 Emphysema, unspecified; I27.20 Pulmonary hypertension, unspecified; I12.9 Hypertensive chronic kidney disease with stage 1 through stage 4 chronic kidney disease, or unspecified chronic kidney disease; N18.31 Chronic kidney disease, stage 3a; I73.9 Peripheral vascular disease, unspecified; I25.10 Atherosclerotic heart disease of native coronary artery without angina pectoris; Z20.828 Contact with and (suspected) exposure to other viral communicable diseases; Z88.8 Allergy status to other drugs, medicaments and biological substances; Z95.5 Presence of coronary angioplasty implant and graft; I25.2 Old myocardial infarction; Z95.1 Presence of aortocoronary bypass graft; Z89.511 Acquired absence of right leg below knee; Z79.01 Long term (current) use of anticoagulants; Z79.899 Other long term (current) drug therapy

== ENCOUNTER 2020-08-14 20:18 | Inpatient (IN) | payer OTHER ==
[~2020-08-14] VITALS: Ht 182.9 cm; Wt 58.5 kg
[~2020-08-14 20:18] MED LIST changes: +COMBIVENT INH; +GABAPENTIN800 M1 PO; +IPRAT-ALBUT 0.5-3 ML INH; +IRBESARTAN-HCT1 EAC1 PO; +LEVOFLOXACIN500 MG PO; +SPIRIVA INH; +[UNRECOGNIZED DRUG - CODE]
[2020-08-14 20:23] VITALS: BP 113/44
[2020-08-14] MEDS ORDERED: PREDNISONE 10 M10 MG PO (20:45)
[2020-08-14] MEDS ORDERED: IRBESARTAN-HCT1 EAC1 PO (20:46)
[2020-08-14] MEDS ORDERED: PROAIR HFA8.5 GM INH (20:46)
[2020-08-14] MEDS ORDERED: FLOMAX0.4 MG PO (20:46)
[2020-08-14] MEDS ORDERED: NEURONTIN800 MG PO (20:46)
[2020-08-14 21:13] LABS: HEMATOCRIT 30.6 % (42.0-52.0); HEMOGLOBIN 10.3 gm/dL (14.0-18.0); MCH 32.4 pg (26.0-34.0); MCHC 33.8 g/dL (28.0-37.0); MCV 95.9 fL (80.0-100.0); MPV 7.8 fl. (7.2-11.1); NUCLEATED RBCS 0 /100WBC; PLATELET COUNT* 124 thou/uL (150-400); RBC 3.19 mil/uL (4.50-6.00); RDW-CV 17.5 % (10.5-14.5)
[2020-08-14 21:18] LABS: CALCIUM 8.6 mg/dL (8.5-10.1); CREATININE 2.4 mg/dL (0.6-1.3)
[2020-08-14 21:22] LABS: ALBUMIN 2.7 g/dL (3.4-5.0); TOTAL BILIRUBIN 1.2 mg/dL (<0.1-1.0); TOTAL PROTEIN 6.2 g/dL (6.4-8.2)
[2020-08-14 21:47] LABS: ABSOLUTE LYMPHOCYTES 0.4 thou/uL (0.8-5.3); ABSOLUTE NEUTROPHILS 18.6 thou/uL (1.6-8.1)
[2020-08-14 21:48] LABS: LARGE PLATELETS RARE; MACROCYTES Occasional; PLATELET ESTIMATE DECREASED
--- NOTE | 2020-08-14 22:43 | NUR ---
SHANI CABRALES (DAUGHTER) [phone] ORI HEENA (SON, DPOA) [phone] (NOT LOCAL)
[2020-08-14 23:00] LABS: APTT 32.9 Seconds (25.0-31.3); INR 1.5; PROTIME 15.3 Seconds (9.20-11.50)
[2020-08-15] VITALS (7 sets, daily range): BP systolic 93–133; BP diastolic 47–55
--- NOTE | 2020-08-15 10:28 | NUR ---
PT REFUSING TO WEAR NASAL CANNULA FOR OXYGEN
--- NOTE | 2020-08-15 13:53 | EKG ---
[place] [address] ELECTROCARDIOGRAM REPORT Name: NAIKGERMAN MITESH Room: [place] [address] ADM IN .R.#: [id number] Admission: 08/14/20 Attend Phys: Pat Warren, Discharge: Date of : 35 Date of Service: 08/14/202025 Report #: [id number] THIS REPORT FOR: //name// [facility] ED Test Date: 2020-08-14 Test Time: 20:26:17 Pat Name: GERMAN NAIK Department: Room: [facility] Gender: M Ward Aide: DEYA : 1935 Requested By: Domi Haynes Order Number: [id number] MD: Migel Alvarado Measurements Intervals [place] Rate: 108 P: 79 NV: 165 QRS: -67 QRSD: 146 T: 60 QT: 338 QTc: 453 Interpretive Statements Sinus tachycardia Probable left atrial enlargement RBBB and LAFB Baseline wander in lead(s) V2 Compared to ECG 11/24/2019 22:02:35 Sinus rate has increased Electronically Signed On 08-15-2020 13:53:04 CDT by Migel Alvarado [email or web address] <ELECTRONICALLY SIGNED> By: Migel Alvarado MD, [facility] 08/15/20 1353 25 25 Migel Alvarado MD, FAC /EPI
[2020-08-15 16:40] LABS: HEMATOCRIT 28.2 % (42.0-52.0); HEMOGLOBIN 9.7 gm/dL (14.0-18.0); MCH 32.6 pg (26.0-34.0); MCHC 34.3 g/dL (28.0-37.0); MCV 94.9 fL (80.0-100.0); MPV 7.9 fl. (7.2-11.1); RBC 2.98 mil/uL (4.50-6.00); RDW-CV 17.3 % (10.5-14.5)
[2020-08-15 16:48] LABS: CREATININE 2.2 mg/dL (0.6-1.3); POTASSIUM 3.6 mmol/L (3.5-5.1)
--- NOTE | 2020-08-15 19:00 | NUR ---
Pt admitted from ED this evening. Hx RBKA. VSS. O2 at 2L per NC. Regular diet. IVF infusing. Wheezes noted bilat. Will continue to monitor.
[2020-08-16 07:48] VITALS: BP 115/60
[2020-08-16 10:26] VITALS: BP 115/60
--- NOTE | 2020-08-16 10:26 | NUR ---
Nutrition: Consult received for heart healthy diet educ. Pt impatient with wanting to go home in 30 minutes. He does have disch orders. He stated he drank Ensure-type supplements for two years and didn't help him put on any weight at all. He said he's weighed ~120# for 2 yrs. H/o CAD, HTN, gout. Offered heart health educ but pt declined. He said he follows a cardiac diet already, including low Na. Underweight R/T etiology unknown AEB BMI <18.5. Pt said he eats well at home. Pt discharging today. Consider moderate to mild risk. No other nutrition interventions at this time.
--- NOTE | 2020-08-16 10:40 | NUR ---
Pt has made it clear this morning on multiple occasions while using colorful language that he is wanting to be discharged right away. States he wants to smoke a cigarette, and wants to leave. Dr. Kuhn notified, and has written discharge orders. Niece arrived to take patient home. Reviewed discharge teaching with patient and pt's niece; verbalized understanding. IV and surveillance system monitor discontinued. Discharged from unit per .
== END 2020-08-16 10:40 | disposition home or self-care (01) | DRG 291 ==
LOC: M.ERS 20:18 → M.TBA-ER 23:59 → M.2W 08-15 17:40
PROVIDERS: Family Medicine; Personal Emergency Response Attendant; ADMIT Internal Medicine; ATTEND Internal Medicine
DX: I13.0 Hypertensive heart and chronic kidney disease with heart failure and stage 1 through stage 4 chronic kidney disease, or unspecified chronic kidney disease (principal); I50.33 Acute on chronic diastolic (congestive) heart failure; N17.0 Acute kidney failure with tubular necrosis; J96.01 Acute respiratory failure with hypoxia; Z20.822 Contact with and (suspected) exposure to COVID-19; K21.9 Gastro-esophageal reflux disease without esophagitis; M10.9 Gout, unspecified; J44.9 Chronic obstructive pulmonary disease, unspecified; I25.10 Atherosclerotic heart disease of native coronary artery without angina pectoris; I73.9 Peripheral vascular disease, unspecified; E87.6 Hypokalemia; N18.9 Chronic kidney disease, unspecified; Z66 Do not resuscitate; I48.91 Unspecified atrial fibrillation; Z88.8 Allergy status to other drugs, medicaments and biological substances; I25.2 Old myocardial infarction; Z95.1 Presence of aortocoronary bypass graft; Z89.511 Acquired absence of right leg below knee; Z79.899 Other long term (current) drug therapy

== ENCOUNTER → 2020-08-17 | Outpatient (CLI) | payer OTHER ==
[~2020-08-17] MED LIST changes: +NEURONTIN800 MG PO; +PROAIR HFA8.5 GM INH
== END ==
LOC: M.ULTRA 09:46
PROVIDERS: ATTEND Family Medicine
DX: N43.2 Other hydrocele (principal); N50.89 Other specified disorders of the male genital organs

== ENCOUNTER 2021-01-22 20:00 | Inpatient (IN) | payer OTHER ==
[~2021-01-22] VITALS: Ht 182.9 cm; Wt 53.5 kg
--- NOTE | ~2021-01-22 | CON ---
[address] [address] CONSULTATION Name: GERMAN NAIK Room: [address] IN M.R.#: [id number] Admission: 01/22/21 Attend Phys: Thuan Montaño Discharge: Date of : 35 Report #: [id number] THIS REPORT FOR: cc: Alexander Frazier MD, Bruce D. MD Elia, Manana MD ~ DATE OF CONSULTATION: 01/24/2021 REQUESTING PHYSICIAN: Roger Slaughter DO REASON FOR CONSULTATION: Head and neck carcinoma and hypotension. HISTORY OF PRESENT ILLNESS: The patient is a pleasant 85-year-old gentleman who has a history of recurrent metastatic head and neck carcinoma. He is undergoing radiation with Dr. Estrella. [facility] He was found to have hypotension and was sent to the hospital. The patient is admitted to the hospital with hypotension. Hematology consult is requested. He says he is feeling better. His blood pressure has been better with hydration. He does not have fever or chills. Does not have bleeding or bruising. PAST MEDICAL HISTORY: Significant for atrial fibrillation, coronary artery disease, CHF, COPD, gout, hypertension, recurrent head and neck carcinoma, hyperlipidemia, and myeloproliferative disorder. He is on Hydrea and sees Dr. Felder for that. SOCIAL HISTORY: History of smoking. PHYSICAL EXAMINATION: GENERAL: Reveals a cachectic old man, not in acute distress. VITAL SIGNS: Blood pressure 92/44, heart rate is 89, temperature 98.2, and respiration 18. NECK: Supple. HEART: Normal S1, S2. LUNGS: Clear. ABDOMEN: Soft. EXTREMITIES: No edema. SKIN: No rash. LABORATORY DATA: White count 8.2, hemoglobin 8.7, and platelets 87. Sodium 141, potassium 4.1, BUN 29, and creatinine 1.1. DIAGNOSTIC DATA: CT angio does not show pulmonary embolus. ASSESSMENT AND PLAN: [place] [address] CONSULTATION Name: GERMAN NAIK Room: [address] IN ..#: [id number] Admission: 01/22/21 Attend Phys: Thuan Montaño Discharge: Date of : 35 Report #: [id number] 1. Hypotension, most likely secondary to dehydration. Hypotension improved with hydration. Does not show any signs of infection. 2. Anemia secondary to radiation therapy . No transfusion is required at this point. 3. Metastatic head and neck carcinoma. No further recommendation at this point. Agree with management. The patient is to see Dr. Estrella when he is discharged from the hospital. Thank you very much for this consult. By: [id number] [id number] Da Silva MD /nt
[2021-01-22 20:13] VITALS: BP 107/66
[2021-01-22] MEDS ORDERED: LEVO-T25 MCG PO (20:20)
[2021-01-22 20:56] LABS: HEMATOCRIT 22.8 % (42.0-52.0); HEMOGLOBIN 7.9 gm/dL (14.0-18.0); MCH 32.8 pg (26.0-34.0); MCHC 34.5 g/dL (28.0-37.0); MCV 95.1 fL (80.0-100.0); MPV 7.9 fl. (7.2-11.1); NUCLEATED RBCS 0 /100WBC; PLATELET COUNT* 81 thou/uL (150-400); RDW-CV 19.8 % (10.5-14.5); WBC 7.5 thou/uL (4.0-11.0)
[2021-01-22 21:02] LABS: CALCIUM 8.3 mg/dL (8.5-10.1); CREATININE 1.8 mg/dL (0.6-1.3); POTASSIUM 4.2 mmol/L (3.5-5.1)
[2021-01-22 21:12] LABS: ALBUMIN 2.6 g/dL (3.4-5.0); TOTAL BILIRUBIN 0.7 mg/dL (<0.1-1.0); TOTAL PROTEIN 5.4 g/dL (6.4-8.2)
[2021-01-22 21:21] LABS: ABSOLUTE LYMPHOCYTES 0.1 thou/uL (0.8-5.3); ABSOLUTE NEUTROPHILS 7.4 thou/uL (1.6-8.1)
[2021-01-22 21:23] LABS: OVALOCYTES Occasional
[2021-01-22 21:26] LABS: ANISOCYTOSIS 1+; PLATELET ESTIMATE DECREASED
[2021-01-22 22:50] VITALS: BP 114/43
[2021-01-23] MEDS ORDERED: OXYCODONE HCL E10 MG PO (01:55)
[2021-01-23 04:00] VITALS: BP 124/52
[2021-01-23 07:50] VITALS: BP 130/52
[2021-01-23 11:53] VITALS: BP 131/51
--- NOTE | 2021-01-23 14:17 | EKG ---
[place] [address] ELECTROCARDIOGRAM REPORT Name: GERMAN NAIK Room: [address] ADM IN M.R.#: [id number] Admission: 01/22/21 Attend Phys: Roger Slaughter Discharge: Date of : 35 Date of Service: 01/22/212013 Report #: [id number] THIS REPORT FOR: //name// [facility] ED Test Date: 2021-01-22 Test Time: 20:14:40 Pat Name: GERMAN NAIK Department: Room: [facility] Gender: M Lumber Trimmer: DANICA : 1935 Requested By: Velvet Bates Order Number: [id number] MD: Migel Alvarado Measurements Intervals [place] Rate: 75 P: 82 NC: 125 QRS: -102 QRSD: 143 T: 46 QT: 394 QTc: 441 Interpretive Statements Sinus rhythm RBBB and LAFB Compared to ECG 08/14/2020 20:26:17 Sinus tachycardia no longer present Electronically Signed On 01-23-2021 14:17:24 FINISH CLEANER by Migel Alvarado [email or web address] <ELECTRONICALLY SIGNED> By: Migel Alvarado MD, FACC 01/23/21 1417 13 13 Migel Alvarado MD, FAC /EPI
[2021-01-23 16:31] VITALS: BP 133/59
[2021-01-23 19:59] VITALS: BP 135/61
[2021-01-23 20:13] LABS: HEMATOCRIT 26.4 % (42.0-52.0)
[2021-01-24] VITALS (7 sets, daily range): BP systolic 82–139; BP diastolic 33–80
[2021-01-24 04:43] LABS: ABSOLUTE LYMPHOCYTES 0.2 thou/uL (0.8-5.3); ABSOLUTE MONOCYTES 0.1 thou/uL (0.0-1.2); ABSOLUTE NEUTROPHILS 7.9 thou/uL (1.6-8.1); BASOPHILS 0.5 %; EOSINOPHILS 0.4 %; HEMATOCRIT 25.3 % (42.0-52.0); HEMOGLOBIN 8.7 gm/dL (14.0-18.0); LYMPHOCYTES 2.3 %; MCH 32.3 pg (26.0-34.0); MCHC 34.5 g/dL (28.0-37.0); MCV 93.7 fL (80.0-100.0); MONOCYTES 0.8 %; MPV 8.2 fl. (7.2-11.1); NUCLEATED RBCS 0 /100WBC; PLATELET COUNT* 87 thou/uL (150-400); RDW-CV 19.5 % (10.5-14.5); WBC 8.2 thou/uL (4.0-11.0)
[2021-01-24 05:01] LABS: CALCIUM 8.3 mg/dL (8.5-10.1); CREATININE 1.1 mg/dL (0.6-1.3); POTASSIUM 4.1 mmol/L (3.5-5.1)
[2021-01-24 14:36] LABS: BE 6.3 mmol/L (-2 to +3); PCO2 46.5 mmHg (35.0-45.0); PO2 73.3 mmHg (75.0-100.0); pH 7.444 (7.340-7.450)
[2021-01-25 01:49] VITALS: BP 107/44
[2021-01-25 06:32] VITALS: BP 95/42
[2021-01-25 08:29] LABS: ABSOLUTE LYMPHOCYTES 0.1 thou/uL (0.8-5.3); ABSOLUTE NEUTROPHILS 4.9 thou/uL (1.6-8.1); BASOPHILS 0.1 %; HEMATOCRIT 26.5 % (42.0-52.0); HEMOGLOBIN 8.9 gm/dL (14.0-18.0); LYMPHOCYTES 1.6 %; MCH 31.9 pg (26.0-34.0); MCHC 33.4 g/dL (28.0-37.0); MCV 95.5 fL (80.0-100.0); MONOCYTES 0.3 %; MPV 8.3 fl. (7.2-11.1); NUCLEATED RBCS 0 /100WBC; PLATELET COUNT* 78 thou/uL (150-400); RBC 2.77 mil/uL (4.50-6.00); RDW-CV 19.5 % (10.5-14.5)
[2021-01-25 08:58] LABS: ALBUMIN 2.3 g/dL (3.4-5.0); CALCIUM 8.4 mg/dL (8.5-10.1); CREATININE 1.3 mg/dL (0.6-1.3); POTASSIUM 4.5 mmol/L (3.5-5.1); TOTAL BILIRUBIN 0.8 mg/dL (<0.1-1.0); TOTAL PROTEIN 5.3 g/dL (6.4-8.2)
[2021-01-25 09:15] VITALS: BP 91/27
[2021-01-25 12:00] VITALS: BP 109/53
--- NOTE | 2021-01-25 13:16 | 2DMMODE ---
[place] [address] 2 D/M-MODE ECHOCARDIOGRAM Name: GERMAN NAIK Room: [address] IN [facility]#: [id number] Admission: 01/22/21 Attend Phys: Roger Slaughter Discharge: Date of : 35 Date of Service: 01/25/21 1315 Report #: [id number] THIS REPORT FOR: cc: Alexander Frazier MD, Bruce D. MD Holkins, John M. MD [facility] ~ APPROVED REPORT Study performed: 01/25/2021 11:41:26 EXAM: Comprehensive 2D, Doppler, and color-flow Echocardiogram Patient Location: In-Patient Room #: [facility] Status: routine BSA: 1.70 HR: 75 bpm BP: 95/42 mmHg Rhythm: NSR Other Information Study Quality: Good Indications Congestive Heart Failure CAD 2D Dimensions IVSd: 10.95 (7-11mm) LVDd: 38.42 mm PWd: 10.14 (7-11mm) Ascending Ao: 31.85 (22-36mm) LVDs: 27.04 (25-40mm) Aortic Root: 38.68 mm Volumes Left Atrial Volume (Systole) LA ESV Index: 41.50 mL/m2 Aortic Valve AoV Peak Ilia.: 1.16 m/s AO Peak Gr.: 5.34 mmHg LVOT Max P.37 mmHg AO Mean Gr.: 3.40 mmHg LVOT Mean P.18 mmHg LVOT Max V: 0.77 m/s AO V2 VTI: 21.19 cm LVOT Mean V: 0.51 m/s LVOT V1 VTI: 10.84 [place] [address] 2 D/M-MODE ECHOCARDIOGRAM Name: GERMAN NAIK Room: [address] IN ..#: [id number] Admission: 01/22/21 Attend Phys: Roger Slaughter Discharge: Date of : 35 Date of Service: 01/25/21 1315 Report #: [id number] Mitral Valve MV Mean Gr.: 1.41 mmHg E/A Ratio: 0.45 MV Decel. Time: 258.93 ms MV E Max Ilia.: 0.50 m/s MV PHT: 75.09 ms MVA (PHT): 2.93 cm2 TDI E/Lateral E': 3.33 Lateral E' Ilia.: 0.15 m/s Pulmonary Valve PV Peak Ilia.: 1.01 m/s PV Peak Gr.: 4.12 mmHg Tricuspid Valve RAP Estimate: 5.00 mmHg TR Peak Gr.: 31.24 mmHg RVSP: 36.00 mmHg PA Pressure: 36.00 mmHg Left Ventricle The left ventricle is normal size. There is normal LV segmental wall motion. There is normal left ventricular wall thickness. Left ventricular systolic function is normal. The left ventricular ejection fraction is within the normal range. LVEF is 60%. Grade I - abnormal relaxation pattern. Right Ventricle The right ventricle is normal size. The right ventricular systolic function is normal. Atria Left atrium is mildly dilated. The right atrium size is normal. Aortic Valve Mild aortic valve sclerosis. No aortic regurgitation is present. There is no aortic valvular stenosis. Mitral Valve There is mitral annular calcification. There is no mitral valve regurgitation noted. No evidence of mitral valve stenosis. Tricuspid Valve The tricuspid valve is normal in structure. Mild tricuspid regurgitation. [place] [address] 2 D/M-MODE ECHOCARDIOGRAM Name: GERMAN NAIK Room: [address] IN ..#: [id number] Admission: 01/22/21 Attend Phys: Roger Slaughter Discharge: Date of : 35 Date of Service: 01/25/21 1315 Report #: [id number] Pulmonic Valve The pulmonary valve is normal in structure. There is no pulmonic valvular regurgitation. Great Vessels The aortic root is normal in size. IVC is normal in size and collapses >50% with inspiration. Pericardium There is no pericardial effusion. <Conclusion> The left ventricle is normal size. There is normal left ventricular wall thickness. Left ventricular systolic function is normal. The left ventricular ejection fraction is within the normal range. LVEF is 60%. Grade I - abnormal relaxation pattern. The right ventricle is normal size. Left atrium is mildly dilated. Mild aortic valve sclerosis. No aortic regurgitation is present. There is no aortic valvular stenosis. There is mitral annular calcification. There is no mitral valve regurgitation noted. No evidence of mitral valve stenosis. The tricuspid valve is normal in structure. Mild tricuspid regurgitation. Mild pulmonary hypertension. IVC is normal in size and collapses >50% with inspiration. There is no pericardial effusion. There is normal LV segmental wall motion. <ELECTRONICALLY SIGNED> By: Migel Alvarado MD, FACC 01/25/211314 14 14 Migel Alvarado MD, FACC /INF
[2021-01-25 16:27] LABS: CALCIUM 8.1 mg/dL (8.5-10.1); CREATININE 1.6 mg/dL (0.6-1.3); MAGNESIUM 1.8 mg/dL (1.8-2.4); POTASSIUM 4.2 mmol/L (3.5-5.1)
[2021-01-25 16:39] LABS: APTT 32.6 Seconds (25.0-31.3); INR 1.4; PROTIME 14.4 Seconds (9.20-11.50)
[2021-01-25 20:00] VITALS: BP 96/34
[2021-01-26] VITALS: BP 106/49
[2021-01-26 04:00] VITALS: BP 129/51
[2021-01-26 08:00] VITALS: BP 117/81
[2021-01-26 11:51] LABS: HEMATOCRIT 22.4 % (42.0-52.0); HEMOGLOBIN 7.5 gm/dL (14.0-18.0); MCH 31.7 pg (26.0-34.0); MCHC 33.5 g/dL (28.0-37.0); MCV 94.6 fL (80.0-100.0); MPV 8.5 fl. (7.2-11.1); NUCLEATED RBCS 0 /100WBC; PLATELET COUNT* 89 thou/uL (150-400); RBC 2.37 mil/uL (4.50-6.00); RDW-CV 19.1 % (10.5-14.5); WBC 5.1 thou/uL (4.0-11.0)
[2021-01-26 12:00] VITALS: BP 113/46
[2021-01-26 12:03] LABS: ALBUMIN 2.2 g/dL (3.4-5.0); CALCIUM 8.1 mg/dL (8.5-10.1); CREATININE 1.3 mg/dL (0.6-1.3); POTASSIUM 4.2 mmol/L (3.5-5.1); TOTAL BILIRUBIN 0.6 mg/dL (<0.1-1.0); TOTAL PROTEIN 4.9 g/dL (6.4-8.2)
[2021-01-26 12:21] LABS: ABSOLUTE LYMPHOCYTES 0.2 thou/uL (0.8-5.3); ABSOLUTE NEUTROPHILS 4.9 thou/uL (1.6-8.1)
[2021-01-26 12:22] LABS: PLATELET ESTIMATE DECREASED
[2021-01-26 12:23] LABS: ANISOCYTOSIS 1+; OVALOCYTES 1+
[2021-01-26 16:00] VITALS: BP 111/42
[2021-01-26 19:48] VITALS: BP 111/46
[2021-01-27] VITALS: BP 127/47
[2021-01-27 04:00] VITALS: BP 115/46
[2021-01-27 07:57] VITALS: BP 116/51
[2021-01-27 08:44] LABS: ABSOLUTE LYMPHOCYTES 0.1 thou/uL (0.8-5.3); BASOPHILS 0.4 %; HEMATOCRIT 21.7 % (42.0-52.0); HEMOGLOBIN 7.2 gm/dL (14.0-18.0); MCH 31.3 pg (26.0-34.0); MCHC 33.2 g/dL (28.0-37.0); MONOCYTES 0.5 %; MPV 8.4 fl. (7.2-11.1); NUCLEATED RBCS 0 /100WBC; PLATELET COUNT* 89 thou/uL (150-400); POLYS 98.1 %; RBC 2.31 mil/uL (4.50-6.00); RDW-CV 19.1 % (10.5-14.5); WBC 6.1 thou/uL (4.0-11.0)
[2021-01-27 08:51] LABS: PREALBUMIN 15.8 mg/dL (18.0-35.7)
[2021-01-27 09:03] LABS: ALBUMIN 1.9 g/dL (3.4-5.0); CALCIUM 7.8 mg/dL (8.5-10.1); CREATININE 1.2 mg/dL (0.6-1.3); POTASSIUM 3.9 mmol/L (3.5-5.1); TOTAL BILIRUBIN 0.5 mg/dL (<0.1-1.0); TOTAL PROTEIN 4.6 g/dL (6.4-8.2)
[2021-01-27 12:42] VITALS: BP 120/51
[2021-01-27 17:00] VITALS: BP 97/51
[2021-01-27 19:45] VITALS: BP 125/50
[2021-01-28] VITALS: BP 73/51
[2021-01-28 04:00] VITALS: BP 125/57
[2021-01-28 05:38] LABS: ABSOLUTE LYMPHOCYTES 0.1 thou/uL (0.8-5.3); BASOPHILS 0.2 %; HEMATOCRIT 22.5 % (42.0-52.0); HEMOGLOBIN 7.6 gm/dL (14.0-18.0); LYMPHOCYTES 0.9 %; MCH 31.8 pg (26.0-34.0); MCHC 33.7 g/dL (28.0-37.0); MCV 94.3 fL (80.0-100.0); MONOCYTES 0.4 %; MPV 8.2 fl. (7.2-11.1); NUCLEATED RBCS 0 /100WBC; PLATELET COUNT* 98 thou/uL (150-400); POLYS 98.5 %; RBC 2.39 mil/uL (4.50-6.00); RDW-CV 19.1 % (10.5-14.5); WBC 7.1 thou/uL (4.0-11.0)
[2021-01-28 08:00] VITALS: BP 125/52
--- NOTE | 2021-01-28 09:03 | EKG ---
[place] [address] ELECTROCARDIOGRAM REPORT Name: GERMAN NAIK Room: [address] ADM IN M.R.#: [id number] Admission: 01/22/21 Attend Phys: Roger Slaughter Discharge: Date of : 35 Date of Service: 01/27/21 1609 Report #: [id number] THIS REPORT FOR: //name// [facility] Test Date: 2021-01-27 Test Time: 16:09:29 Pat Name: GERMAN NAIK Department: Room: [address] Gender: M Grooming Assistant: : 1935 Requested By: Shadi Zarate Order Number: [id number] Reading MD: Jones Deng Measurements Intervals [place] Rate: 131 P: [place]: QRS: -91 QRSD: 140 T: 59 QT: 334 QTc: 494 Interpretive Statements Atrial fibrillation Ventricular premature complex RBBB and LAFB Baseline wander in lead(s) V5 Compared to ECG 01/22/2021 20:14:40 Ventricular premature complex(es) now present Sinus rhythm no longer present Electronically Signed On 01-28-2021 9:02:53 BLADE GRADER OPERATOR by Jones Deng [email or web address] <ELECTRONICALLY SIGNED> By: Jones Deng MD, FACC 01/28/21 0902 1609 1609 Jones Deng MD, FAC /EPI
[2021-01-28 11:43] VITALS: BP 114/48
[2021-01-28 16:45] VITALS: BP 121/49
[2021-01-28 20:00] VITALS: BP 140/53
--- NOTE | 2021-01-28 22:53 | CON ---
[address] [address] CONSULTATION Name: GERMAN NAIK Room: [address] IN M.R.#: [id number] Admission: 01/22/21 Attend Phys: Thuan Montaño Discharge: Date of : 35 Report #: [id number] THIS REPORT FOR: cc: Alexander Frazier MD, Bruce D. MD Pervez, Adeel MD ~ DATE OF CONSULTATION: 01/25/2021 REQUESTING PHYSICIAN: Shadi Zarate MD INDICATION FOR CONSULTATION: Acute hypoxemic respiratory failure. HISTORY OF PRESENT ILLNESS: An 85-year-old gentleman, past medical history includes a history of COPD. He is not on supplemental oxygen at home. The patient also has had a hematological malignancy, which previously described as being CML. The patient's son states that his oncologist, Dr. Felder may have defined the diagnosis further. Recently, he is also describing a history of head and neck cancer. I do not have details available and he is anticoagulated with Eliquis for atrial fibrillation. The patient is now admitted 2 days ago because he went for a radiation session, apparently has only had 1 radiation session. He was found to be markedly hypotensive and therefore was transferred here. The patient since arrival, mostly has been on around 5-6 liters nasal cannula. Most of the O2 saturations are in the mid to high 90s. Briefly, he was on 10 liters yesterday. He did have a CTA chest yesterday shows bilateral basilar infiltrates, but these in fact looks better than the CT performed in 2019. It is not known to me as to whether the patient in fact was hypoxemic, upon initial presentation. He did have acute renal failure, creatinine 1.8, initially went down to 1.1 yesterday, now risen again to 1.3. He is not fully sitting up when he is eating. I have suspicion that he has aspiration. He does have shortness of breath. He has a cough. There is not much sputum. There is no chest pain. He does not describe upper respiratory complaints. There is no swelling of lower extremities. He does have some pain in his legs, which is longstanding. REVIEW OF SYSTEMS: For 12 points is negative except as mentioned above. PAST MEDICAL HISTORY: COPD, has not been on oxygen long-term, dysphagia/head and neck cancer. I do not have details available. Hematological malignancy. Previously diagnosed with CML. He may have an additional diagnosis of hematological malignancy recently. Again, the details not available. Atrial fibrillation, on anticoagulation long-term. Peripheral vascular disease, status post amputation on the right side lower extremity, carotid endarterectomy, bladder and colon fissure, hypertension, gastroesophageal reflux disease, gout, fem-pop bypass, [place] [address] CONSULTATION Name: GERMAN NAIK Room: [address] IN M.R.#: [id number] Admission: 01/22/21 Attend Phys: Thuan Montaño Discharge: Date of : 35 Report #: [id number] patient has recently had an echocardiogram shows a left ventricular ejection fraction of 60% with a significant elevation in right heart pressures. Pulmonary artery systolic is only mildly elevated at 36, which in fact is better than the echo last year showing a pulmonary artery systolic of 54. SOCIAL HISTORY: Extensive history of smoking. He still smokes. No known history of heavy alcohol use or illegal drug use. CURRENT MEDICATIONS: List in [employer] reviewed. HOME MEDICATIONS: List also in [employer] reviewed. ALLERGIES: ZOLPIDEM. FAMILY HISTORY: No pertinent family history. PHYSICAL EXAMINATION: GENERAL: He is alert, awake and oriented. He is lying on his sides. Appeared to be lethargic, but was fully arousable. VITAL SIGNS: Pulse of 72 and a blood pressure 109/53, saturating 98% on 6 liters nasal cannula, respiratory rate 16, afebrile with a temperature of 36.7. HEENT: Head is normocephalic and atraumatic. Pupils are equal and reactive. There is no throat erythema. NECK: Does show some fullness. CHEST: Symmetrical expansion on inspection and palpation. On auscultation, breath sounds are bilaterally equal, decreased. No added sounds. HEART: Irregular. No murmur. ABDOMEN: Soft and nontender. EXTREMITIES: Lower extremities, no edema. There is calf tenderness in the left side. There is an amputation on the right. NEUROLOGIC: Moves all extremities bilaterally equally and spontaneously with no focal deficit identified. LABORATORY DATA: The patient's CTA chest as well as chest x-ray are [facility]. I reviewed both the films as intend report. Also lower extremity arterial study and x-ray tibia, fibula in [facility] reviewed. Positive culture from an ulcer noted. Arterial blood gas, which does show chronic hypercarbic respiratory failure with a component of metabolic alkalosis as well in [facility] reviewed. ASSESSMENT AND PLAN: 1. Shortness of breath. In the background, the patient does have chronic obstructive pulmonary disease and from the history provided, he appears to have developed head and neck cancer recently. He has had dysphagia and has not been [address] [place] [address] CONSULTATION Name: GERMAN NAIK Room: [address] IN ..#: [id number] Admission: 01/22/21 Attend Phys: Thuan Montaño Discharge: Date of : 35 Report #: [id number] taking orally well recently. I suspect that he is also aspirating. All of these are contributing factors to his shortness of breath. 2. Acute renal failure/hypotension. I understand that his proBNP in fact is elevated to above 4000 consistent with right atrial dilatation. The patient, however, does not appear to be sick to be total body fluid overloaded on exam and he is at risk of developing more renal failure; therefore recommended to go ahead and give him some hydration. I ordered fluid at 80 an hour for now. Would repeat labs and then adjust fluids accordingly. Potentially, we can give him some albumin as well, but he does not have much peripheral edema. Therefore, I decided to hold off for now. 3. Chronic obstructive pulmonary disease exacerbation. Continue Solu-Medrol. He is on ipratropium. I switched this over to DuoNeb, but I feel that we can go ahead and start tapering down Solu-Medrol dose cut back. 4. Dysphagia/suspected aspiration/pulmonary infiltrates. He does have some pulmonary infiltrates bilaterally. These look better than in 2020. It is possible that he previously had pneumonia, which resolved and he developed new infiltrates. He is on cefepime. This should provide sufficient coverage. I do not feel strongly either way regarding also adding or holding off on anaerobic coverage. He does, however, have a positive culture from an ulcer and I will obtain an Infectious Disease opinion regarding this. 5. Head and neck cancer. We will do a CT neck without contrast. 6. Atrial fibrillation. He is on Eliquis long-term. I did order coags and also D-dimer primarily as an inflammatory marker. I do not suspect thromboembolism at this time. 7. Positive culture from the ulcer. We will request Infectious Disease to comment. 8. History of hematological malignancy/chronic myelogenous leukemia. 9. Swallow evaluation. Requested speech to evaluate. Needs strict aspiration precautions. Thanks for this consultation. <ELECTRONICALLY SIGNED> By: Claudio Pizarro MD 01/28/21 2253 1307 1915Aleah Pizarro MD /nt
[2021-01-29 00:15] VITALS: BP 134/55
[2021-01-29 04:30] LABS: HEMATOCRIT 22.8 % (42.0-52.0); HEMOGLOBIN 7.6 gm/dL (14.0-18.0); MCH 31.8 pg (26.0-34.0); MCHC 33.4 g/dL (28.0-37.0); MCV 95.3 fL (80.0-100.0); MPV 8.1 fl. (7.2-11.1); NUCLEATED RBCS 0 /100WBC; PLATELET COUNT* 92 thou/uL (150-400); RBC 2.39 mil/uL (4.50-6.00); RDW-CV 19.2 % (10.5-14.5); WBC 7.3 thou/uL (4.0-11.0)
[2021-01-29 05:29] LABS: CALCIUM 7.8 mg/dL (8.5-10.1); CREATININE 1.2 mg/dL (0.6-1.3); POTASSIUM 4.7 mmol/L (3.5-5.1); TOTAL BILIRUBIN 0.6 mg/dL (<0.1-1.0); TOTAL PROTEIN 4.5 g/dL (6.4-8.2)
[2021-01-29 06:58] VITALS: BP 123/62
[2021-01-29 07:00] LABS: ABSOLUTE LYMPHOCYTES 0.1 thou/uL (0.8-5.3); ABSOLUTE MONOCYTES 0.1 thou/uL (0.0-1.2); ABSOLUTE NEUTROPHILS 7.1 thou/uL (1.6-8.1)
[2021-01-29 07:01] LABS: ANISOCYTOSIS 1+; PLATELET ESTIMATE ADEQUATE
[2021-01-29 09:32] VITALS: BP 132/84
--- NOTE | 2021-01-29 12:25 | EKG ---
[place] [address] ELECTROCARDIOGRAM REPORT Name: GERMAN NAIK Room: [address] ADM IN M.R.#: [id number] Admission: 01/22/21 Attend Phys: Roger Slaughter Discharge: Date of : 35 Date of Service: 01/29/21 [facility] Report #: [id number] THIS REPORT FOR: //name// [facility] Test Date: 2021-01-29 Test Time: 10:07:31 Pat Name: GERMAN NAIK Department: Room: [address] Gender: M Senior Branch Manager: ADY : 1935 Requested By: Jones Deng Order Number: [id number] MD: Jones Deng Measurements Intervals [place] Rate: 54 P: 71 ND: 124 QRS: -52 QRSD: 142 T: -17 QT: 446 QTc: 423 Interpretive Statements Sinus bradycardia RBBB and LAFB Compared to ECG 01/27/2021 16:09:29 Atrial fibrillation no longer present Ventricular premature complex(es) no longer present Electronically Signed On 01-29-2021 12:25:02 PATIENT FINANCIAL COUNSELOR by Jones Deng [email or web address] <ELECTRONICALLY SIGNED> By: Jones Deng MD, [facility] 01/29/21 1225 1007 1007 Jones Deng MD, [facility] /EPI
[2021-01-29 12:26] VITALS: BP 133/50
--- NOTE | 2021-01-29 12:33 | CON ---
[address] [address] CONSULTATION Name: HEENAGERMAN SAGASTUME Room: [address] ADM IN M.R.#: [id number] Admission: 01/22/21 Attend Phys: Thuan Montaño Discharge: Date of : 35 Report #: [id number] THIS REPORT FOR: cc: Alexander Frazier MD, Bruce D. MD Blick, David R. MD [facility] ~ cc: Alexander Frazier MD DATE OF CONSULTATION: 01/28/2021 CARDIOLOGY CONSULTATION HISTORY OF PRESENT ILLNESS: The patient is an 85-year-old white male who I was asked to see in the hospital today after he was noted to be in atrial fibrillation. The patient has an extensive and complicated past medical history. He apparently had 3-vessel bypass surgery in 2005 at [facility]. He had had a previous history of stents at [place] before his bypass surgery. He has had previous right carotid endarterectomy in 2004. He had repair of an abdominal aneurysm in 2006. He has a history of PAD with previous lower extremity bypass grafts. He eventually required [id number]-lpb-[id number] amputation for poor circulation. He has been chronically anticoagulated. He has a history of paroxysmal atrial fibrillation and was chronically anticoagulated. He apparently never required cardioversion. The patient recently was found to have evidence of skin cancer. He was scheduled to undergo radiation therapy at . When he showed up at , he was noted to have low blood pressure. He was sent to [place] and admitted last week. His blood pressure is now stabilized. Yesterday, he went into rapid atrial fibrillation. Cardiology consultation was requested. He denies recent chest pain, increased shortness of breath, palpitations, lightheadedness. PAST MEDICAL HISTORY: Otherwise, significant for back surgery. He has a history of hypertension. CURRENT MEDICATIONS: Consist of albuterol inhaler, Eliquis, Lipitor, Neurontin, hydroxyurea, irbesartan and HCT, Synthroid, oxycodone, Flomax. He uses his inhaler. ALLERGIES: HE HAS A PREVIOUS INTOLERANCE TO AMBIEN. FAMILY HISTORY: Negative for heart disease. SOCIAL HISTORY: He is , he and his live here in [place]. 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 He continues to smoke a pack of cigarettes a day. [place] [address] CONSULTATION Name: GERMAN NAIK Room: [address]#: [id number] Admission: 01/22/21 Attend Phys: Thuan Montaño Discharge: Date of : 35 Report #: [id number] REVIEW OF SYSTEMS: He has had no history of stroke. He does have COPD. No history of liver disease, kidney disease, chronic skin condition, psychiatric illness. PHYSICAL EXAMINATION: GENERAL: Revealed an elderly, frail-appearing male, lying in bed, he appeared in no distress. VITAL SIGNS: He had a blood pressure of 120/60, pulse is 100, he was afebrile. HEENT: He was anicteric. Conjunctivae pink. Mucous membranes moist. NECK: Veins not appear distended. No carotid bruits. CHEST: Clear to auscultation. HEART: Irregular, tachycardia. No significant murmur. ABDOMEN: Soft. EXTREMITIES: Had no pitting edema. SKIN: Cool and dry. NEUROLOGIC: Nonfocal. LABORATORY DATA: His atrial fibrillation is noted on his ECG. His workup, he had an echocardiogram performed last week that showed ejection fraction of 60% with left atrial enlargement, aortic sclerosis. His x-rays, he had a portable chest x-ray yesterday that showed normal heart size and clear lung john. He was noted to have whiteout of the left lung consistent with an infiltrate. He actually had a CT scan of the chest using a PE protocol that showed no pulmonary embolus, COPD, consolidation in left lung. His lab work, BUN 30, creatinine 1.2, albumin is only 1.9. High sensitivity troponin was 21. His white blood cell count 7.1, hemoglobin is 7.6, platelet count 98,000. IMPRESSION AND RECOMMENDATIONS: 1. Atrial fibrillation. I would aim for rate control. I would not recommend cardioversion at this time. 2. Previous repair of an abdominal aneurysm. 3. Coronary artery disease. No recent angina. 4. Previous carotid endarterectomy. 5. Peripheral arterial disease with previous bypass and amputation. 6. Pneumonia. 7. Anemia. No recent bleeding. However, because of severe anemia, I would consider holding Eliquis at this time. <ELECTRONICALLY SIGNED> By: Jones Deng MD, FACC 01/29/21 1233 [id number] Deng MD, FACC /nt
[2021-01-29 13:32] LABS: BF RBC <1000 /mm3; TOTAL CELL COUNT <20 /mm3
[2021-01-29 13:54] LABS: CLARITY CLEAR; TOTAL VOLUME 1160 ml
[2021-01-29 15:28] LABS: SOURCE PLEURAL FLUID
--- NOTE | 2021-01-29 16:18 | EKG ---
[place] [address] ELECTROCARDIOGRAM REPORT Name: NAIKGERMAN Room: [address] ADM IN M.R.#: [id number] Admission: 01/22/21 Attend Phys: Roger Slaughter Discharge: Date of : 35 Date of Service: 01/29/21 1501 Report #: [id number] THIS REPORT FOR: //name// [facility] Test Date: 2021-01-29 Test Time: 15:01:48 Pat Name: GERMAN NAIK Department: Room: [address] Gender: M Visitor Service Assistant: ADY : 1935 Requested By: Bruce Gandhi Order Number: [id number] Reading MD: Jones Deng Measurements Intervals [place] Rate: 53 P: 73 [place]: 119 QRS: -36 QRSD: 142 T: -33 QT: 457 QTc: 430 Interpretive Statements Pacemaker spikes or artifacts Sinus bradycardia Borderline short [place] interval Right bundle branch block Compared to ECG 01/29/2021 10:07:31 no change Electronically Signed On 01-29-2021 16:18:24 TRANSFORMER BUILDER by Jones Deng [email or web address] <ELECTRONICALLY SIGNED> By: Jones Deng MD, [facility] 01/29/21 1618 1501 1501 Jones Deng MD, [facility] /EPI
[2021-01-29 17:38] VITALS: BP 142/55
[2021-01-29 20:00] VITALS: BP 127/50
[2021-01-30 01:00] VITALS: BP 144/81
[2021-01-30 04:34] LABS: ABSOLUTE NEUTROPHILS 9.5 thou/uL (1.6-8.1); BASOPHILS 0.1 %; HEMOGLOBIN 7.3 gm/dL (14.0-18.0); LYMPHOCYTES 0.5 %; MCH 31.5 pg (26.0-34.0); MCHC 33.1 g/dL (28.0-37.0); MCV 95.2 fL (80.0-100.0); MONOCYTES 0.5 %; MPV 8.3 fl. (7.2-11.1); NUCLEATED RBCS 0 /100WBC; PLATELET COUNT* 87 thou/uL (150-400); POLYS 98.9 %; RDW-CV 19.2 % (10.5-14.5); WBC 9.6 thou/uL (4.0-11.0)
[2021-01-30 04:49] LABS: ALBUMIN 1.9 g/dL (3.4-5.0); CALCIUM 7.9 mg/dL (8.5-10.1); CREATININE 1.1 mg/dL (0.6-1.3); POTASSIUM 4.6 mmol/L (3.5-5.1); TOTAL BILIRUBIN 0.6 mg/dL (<0.1-1.0); TOTAL PROTEIN 4.5 g/dL (6.4-8.2)
[2021-01-30 05:23] VITALS: BP 114/42
[2021-01-30 07:59] VITALS: BP 128/43
[2021-01-30 09:08] LABS: BODY FLUID PROTEIN 1.3 g/dL (())
[2021-01-30 12:00] VITALS: BP 118/38
[2021-01-30 16:00] VITALS: BP 128/41
--- NOTE | 2021-01-30 18:23 | EKG ---
[place] [address] ELECTROCARDIOGRAM REPORT Name: GERMAN NAIK Room: [address] ADM IN M.R.#: [id number] Admission: 01/22/21 Attend Phys: Roger Slaughter Discharge: Date of : 35 Date of Service: 01/30/21 1711 Report #: [id number] THIS REPORT FOR: //name// [facility] Test Date: 2021-01-30 Test Time: 17:11:05 Pat Name: GERMAN NAIK Department: Room: [address] Gender: M Roofing Contractor: TRENT : 1935 Requested By: Jones Deng Order Number: [id number] Reading MD: Jones Deng Measurements Intervals [place] Rate: 50 P: 56 [place]: 119 QRS: -93 QRSD: 144 T: -36 QT: 490 QTc: 447 Interpretive Statements Sinus bradycardia Borderline short [place] interval RBBB and LAFB Abnormal lateral Q waves Compared to ECG 01/29/2021 15:01:48 no change Electronically Signed On 01-30-2021 18:22:59 WALLPAPER PRINTER by Jones Deng [email or web address] <ELECTRONICALLY SIGNED> By: Jones Deng MD, [facility] 01/30/21 1822 171 171 Jones Deng MD, [facility] /EPI
[2021-01-30 20:00] VITALS: BP 143/47
[2021-01-31] VITALS (8 sets, daily range): BP systolic 103–128; BP diastolic 41–55
[2021-01-31 05:00] LABS: HEMOGLOBIN 7.8 gm/dL (14.0-18.0); MCH 31.8 pg (26.0-34.0); MCHC 33.8 g/dL (28.0-37.0); MCV 94.3 fL (80.0-100.0); MPV 8.3 fl. (7.2-11.1); RBC 2.44 mil/uL (4.50-6.00); RDW-CV 18.5 % (10.5-14.5)
[2021-01-31 05:08] LABS: POTASSIUM 4.1 mmol/L (3.5-5.1)
[2021-01-31] MEDS ORDERED: SORINE 80 MG TA80 M1 PO (14:18)
[2021-01-31] MEDS ORDERED: PREDNISONE 10 M10 MG PO (14:22)
[2021-01-31] MEDS ORDERED: PROAIR HFA8.5 GM INH (14:27)
--- NOTE | 2021-02-04 15:12 | PATH ---
[address] [address] PATHOLOGY RPT PROCEDURE Name: GERMAN NAIK Room: [address] IN [facility]#: [id number] Admission: 01/22/21 Date of : 35 Discharge: 01/31/21 Report #: [id number] Path Case #: [id number] Note [facility] Accession Number: [id number] TESTS RESULT FLAG UNITS REF RANGE LAB Clinician Provided Cytology Information No. of containers..01 Other (Miscellaneous) Source: LT PLEURAL DIAGNOSIS: LT PLEURAL NEGATIVE FOR MALIGNANT CELLS. REACTIVE MESOTHELIAL CELLS ARE PRESENT. THIS INTERPRETATION INCLUDES EVALUATION OF A CELL BLOCK. Signed out by: 02 Andrez Gonzalez MD, Pathologist NPI- [id number] Performed by: 01 Jazmine Daugherty, Deburr Technician ([facility]) Gross description: 01 30ML, LIGHT YELLOW, CLEAR /LCS 01/30/2021 1725 Local FLAG LEGEND: L-Low Normal,H-High Normal,LL-Alert Low,HH-Alert High <-Panic Low,>-Panic High,A-Abnormal,AA-Critical Abnormal Performed at: [address] [place] [address] Erik Marie MD, [address] [id number] Andrez Gonzalez MD, Specimen Comment: A duplicate report has been generated due to demographic updates. Performed at: [address], [place], [place] [id number] MD Erik Marie MD Phone: [phone]
== END 2021-01-31 17:40 | disposition home health service (06) | DRG 177 ==
LOC: M.ERS 20:00 → M.2W 21:38 → M.TBA-ER 21:38 → M.2W 22:55
PROVIDERS: Emergency Medicine; Internal Medicine; Internal Medicine Critical Care Medicine; Internal Medicine Hematology & Oncology; ADMIT Internal Medicine; ATTEND Internal Medicine
PROC: 5A0935A Assistance with Respiratory Ventilation, Less than 24 Consecutive Hours, High Flow/Velocity Cannula (ICD-10-PCS; principal; 2021-01-24)
PROC: 5A0935A Assistance with Respiratory Ventilation, Less than 24 Consecutive Hours, High Flow/Velocity Cannula (ICD-10-PCS; 2021-01-25)
PROC: 5A0935A Assistance with Respiratory Ventilation, Less than 24 Consecutive Hours, High Flow/Velocity Cannula (ICD-10-PCS; 2021-01-29)
PROC: 0W9B3ZZ Drainage of Left Pleural Cavity, Percutaneous Approach (ICD-10-PCS; 2021-01-29)
DX: J69.0 Pneumonitis due to inhalation of food and vomit (principal); E43 Unspecified severe protein-calorie malnutrition; J96.01 Acute respiratory failure with hypoxia; J98.19 Other pulmonary collapse; Z68.43 Body mass index [BMI] 50.0-59.9, adult; C94.6 Myelodysplastic disease, not elsewhere classified; G93.40 Encephalopathy, unspecified; C79.9 Secondary malignant neoplasm of unspecified site; N17.9 Acute kidney failure, unspecified; I77.2 Rupture of artery; J90 Pleural effusion, not elsewhere classified; J93.9 Pneumothorax, unspecified; C44.42 Squamous cell carcinoma of skin of scalp and neck; C44.229 Squamous cell carcinoma of skin of left ear and external auricular canal; I25.10 Atherosclerotic heart disease of native coronary artery without angina pectoris; F17.210 Nicotine dependence, cigarettes, uncomplicated; I77.9 Disorder of arteries and arterioles, unspecified; I10 Essential (primary) hypertension; D64.81 Anemia due to antineoplastic chemotherapy; E78.5 Hyperlipidemia, unspecified; I48.0 Paroxysmal atrial fibrillation; T17.990A Other foreign object in respiratory tract, part unspecified in causing asphyxiation, initial encounter; X58.XXXA Exposure to other specified factors, initial encounter; T45.1X5A Adverse effect of antineoplastic and immunosuppressive drugs, initial encounter; K21.9 Gastro-esophageal reflux disease without esophagitis; M10.9 Gout, unspecified; I95.9 Hypotension, unspecified; J43.9 Emphysema, unspecified; I73.9 Peripheral vascular disease, unspecified; Z20.822 Contact with and (suspected) exposure to COVID-19; Z79.01 Long term (current) use of anticoagulants; Z95.1 Presence of aortocoronary bypass graft; Z95.5 Presence of coronary angioplasty implant and graft; Z89.511 Acquired absence of right leg below knee; Z88.8 Allergy status to other drugs, medicaments and biological substances; Z79.899 Other long term (current) drug therapy; Z95.820 Peripheral vascular angioplasty status with implants and grafts; Y92.89 Other specified places as the place of occurrence of the external cause; Y93.89 Activity, other specified; Y99.8 Other external cause status